=== PATIENT | male | born 1950 | race Caucasian/White ===

== ENCOUNTER 2019-07-08 12:51 | Inpatient (IN) | payer MEDICARE ==
[~2019-07-08] VITALS: Ht 172.7 cm; Wt 104.3 kg
[2019-07-08] MEDS ORDERED: TYLENOL325 M1 PO (14:39)
[2019-07-08] MEDS ORDERED: ALPRAZOLAM XR3 MG PO (14:43)
[2019-07-08] MEDS ORDERED: VITAMIN C500 M2 PO (14:45)
[2019-07-08] MEDS ORDERED: ASA81BEC PO (14:47)
[2019-07-08] MEDS ORDERED: LIPITOR40 MG PO (14:49)
[2019-07-08] MEDS ORDERED: THERA-D2000 UNIT PO (14:51)
[2019-07-08] MEDS ORDERED: LOMOTIL 2.5-0.01 TAB PO (14:54)
[2019-07-08] MEDS ORDERED: NEURONTIN100 MG PO (14:55)
[2019-07-08] MEDS ORDERED: GLUCOSAMINE &1 EAC1 PO (14:56)
[2019-07-08] MEDS ORDERED: NORCO 5-325 TA1 EAC1 PO (14:58)
[2019-07-08] MEDS ORDERED: MIDODRINE HCL 55 M1 PO (14:59)
[2019-07-08] MEDS ORDERED: MULTIPLE VITAM1 EAC2 PO (15:01)
[2019-07-08] MEDS ORDERED: NEPHRO-VITE TA0.8 MG PO (15:12)
[2019-07-08] MEDS ORDERED: OMEGA-3 FISH1200 MG PO (15:19)
[2019-07-08] MEDS ORDERED: ONDANSETRON ODT4 MG PO (15:21)
[2019-07-08] MEDS ORDERED: MIRAPEX0.5 MG PO (15:22)
[2019-07-08] MEDS ORDERED: PROBIOTIC1 EAC7 PO (15:23)
[2019-07-08] MEDS ORDERED: PROSOL2000 ML (15:29)
[2019-07-08] MEDS ORDERED: RENVELA0.8 GM PO (15:32)
[2019-07-08] MEDS ORDERED: VENLAFAXINE HC150 MG PO (15:34)
[2019-07-08 17:57] VITALS: BP 97/50
--- NOTE | 2019-07-08 19:51 | NUR ---
PATIENT ARRIVED TO UNIT VIA W/C VAN. ALERT AND ORIENTED X4. UP WITH STAND BY ASSIST, GAIT BELT AND WALKER. NO C/O PAIN. ASSESSMENT CHARTED. FISTULA DRESSING DRY AND INTACT OVER LEFT UPPER ARM. DIALYSIS NURSE TO BE OUT IN AM TO CHECK FISTULA SO PATIENT WILL BE ABLE TO GET DIAYSIS. HAS PULL UP ON AT THIS TIME. PATIENT STATES SELDOM HAS URINE OUTPUT. CALL LIGHT WITHIN REACH. CHAIR ALARM BEING USED.
[2019-07-08 20:34] VITALS: BP 106/49
[2019-07-09 03:35] LABS: HEMATOCRIT 27.7 % (42.0-52.0); HEMOGLOBIN 9.4 gm/dL (14.0-18.0); MCH 34.3 pg (26.0-34.0); MCHC 33.9 g/dL (28.0-37.0); MCV 101.1 fL (80.0-100.0); MPV 7.2 fl. (7.2-11.1); RBC 2.74 mil/uL (4.50-6.00); RDW-CV 16.1 % (10.5-14.5)
[2019-07-09 03:45] LABS: CREATININE 7.8 mg/dL (0.6-1.3); POTASSIUM 5.2 mmol/L (3.5-5.1)
--- NOTE | 2019-07-09 05:54 | NUR ---
ASSUMED PT CARE AT 1930. PT ALERT AND ORIENTED X4, POLITE AND COOPERATIVE WITH CARES. HX OF DEBILITY AND ESRD. ON SCHEDULED PAIN MEDICATION. PT TO HAVE DIALYSIS TODAY. FISTULA TO LEFT UPPER EXTREMITY WITH BRUIT AND THRILL, HOWEVER FISTULA IS ALLEGEDLY INFILTRATED, DIALYSIS NURSE TO ARRIVE AT 0700 TO TROUBLESHOOT. LARGE STOOL THIS SHIFT. UP TO BS WITH ASSIST OF TWO, GAIT BELT AND WALKER. PT TURNED Q2. PHOTOS TAKEN OF FOLLOWING, SCAB ON LEFT KNEE, PRESSURE SORE ON RIGHT BUTTOCK, SORE ON COCCYX, BLOOD BLISTER ON FOURTH FINGER OF LEFT HAND AND SORE ON SECOND TOE OF LEFT FOOT. BLE EDEMATOUS AND DISCOLORED. 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 USES CALL LIGHT APPROPRIATELY. CALL LIGHT AND FREQUENTLY USED ITEMS IN REACH. BED ALARM ON FOR SAFETY. HOURLY ROUNDING IN PROGRESS, WILL CONTINUE TO MONITOR.
[2019-07-09 08:26] VITALS: BP 102/53
--- NOTE | 2019-07-09 16:21 | NUR ---
ASSESSMENT COMPLETE. PT ALERT AND ORIENTED X4. PT HAD DIALYSIS THIS MORNING DUE TO MISSING FRIDAY. PT NORMAL DIALYSIS DAYS ARE , FRIDAY, FRIDAY. FISTULA IN LEFT ARM, LEFT LIMB ALERT IN PLACE. ACCU CHECK ACHS. PT TOLERATES MEALS. PAIN MEDICATION SCHEDULED FOR LEFT HIP/LEG PAIN. PT TAKES MEDICATIONS WITHOUT DIFFICULTY. PT IS UP WITH 2 ASSIST WITH WALKER AND GAIT BELT. PT IN CHAIR AFTER DIALYSIS MOST OF THE AFTERNOON. BED AND CHAIR ALARM IN PLACE. CALL LIGHT WITHIN REACH, WILL CONTINUE PLAN OF
--- NOTE | 2019-07-09 16:55 | NUR ---
Pt admitted to [facility] inpt rehab unit from [facility]. Pt lives at home with his . Pt has walker at home. SW to continue to follow to assist with safe dc planning.
[2019-07-09 20:30] VITALS: BP 100/50
--- NOTE | 2019-07-09 23:39 | NUR ---
ASSUMED CARE AT 1930. PATIENT RESTING IN BED. UP TO BSC FOR SMALL SOFT BM. SKIN CARE DONE, MOISTURE BARRIER APPLIED. UP WITH TWO FOR SAFETY, GAIT BELT, WALKER, CUEING. FISUTLA ON LT ARM POSITIVE FOR THRILL AND BRUIT. AREAS TO LT KNEE, LT TOE AND LT HAND DILIP AND C/D/I. HEELS ELEVATED ON TWO PILLOWS PER REQUEST. ON SCHEDULED PAIN MEDS. TURNED Q2H. HOURLY ROUNDS CONTINUE. BED ALARM ON. CALL LITE IN REACH.
[2019-07-10 06:08] LABS: % SATURATION 22 % (20-39); IRON 39 ug/dL (50-175)
--- NOTE | 2019-07-10 06:18 | NUR ---
SLEPT MOST OF THE NIGHT. CALLS OUT ASKING TO BE TURNED WHICH COINCIDED WITH Q2H TURNS. POSITIONED WITH PILLOWS. STAYED OFF HIS BACK ALL NIGHT. NO VOIDS THIS SHIFT. HAD ONE SMEAR OF SOFT BM EARLIER IN SHIFT PER BSC. SCHEDULED PAIN MEDS GIVEN, SEE OCT. HOURLY ROUNDS CONTINUE. BED ALARM ON. CALL LITE IN REACH.
[2019-07-10 08:07] VITALS: BP 87/48
--- NOTE | 2019-07-10 16:34 | NUR ---
ASSUMMED CARE OF PT AT 0730, PT ALERT AND ORIENTED, HAS GENERALIZED WEAKNESS, TRANSFERS WITH MOD/MAX ASSIST GB WALKER CUEING, PT HAS APRYL FISTULA, DIALYSIS THIS AFTERNOON, PT HAS NOT VOIDED THIS SHIFT, PT BUTTOCKS RED, REPOSTIONED EVERY 2 HOURS, PT HAD LUNCH IN DININGROOM, TAKING FOOD AND FLUIDS WELL, PARTICIPATED IN ALL THERAPIES, HOURLY ROUNDING COMPLETED, ASSESSMENT COMPLETED, WILL CONTINUE TO MONITOR.
[2019-07-10 19:55] VITALS: BP 74/37
--- NOTE | 2019-07-11 05:45 | NUR ---
PT ALERT AND ORIENTED. BP WAS 74/37 BEGINNING OF SHIFT. PT ON 1000CC FLUID RESTRICTION. HAD DIALYSIS YESTERDAY. DR SO NOTIFIED OF BP. NO NEW ORDERS GIVEN. PT SLEPT LITTLE THIS SHIFT. HAD LITTLE BM. Q2 TURN. BARRIER CREAM TO BOTTOM. FALL PRECAUTION IN PLACE. 2 PERSONS'S ASSIST. CALL LIGHT WITHIN REACH. HOURLY ROUNDINGS MADE. WILL CONTINUE TO MONITOR.
[2019-07-11 08:29] VITALS: BP 113/62
--- NOTE | 2019-07-11 16:58 | NUR ---
ASSUMMED CARE OF PT AT 0730, PT ALERT AND ORIENTED, PT TRANSFERS WITH ASSIST OF 1-2, NEEDS LIFTING ASSIST TO GO FROM SIT TO STAND, THEN ABLE TO TAKE STEPS SLOWLY, NO VOID THIS SHIFT, DID HAVE LARGE BM X 1 ON TOILET, BUTTOCKS REDDENED AND SLOUGHING OF SKIN, CONSULT PLACED TO WD NURSE, BARRIER OINTMENT APPLIED, REPOSTIONED EVERY 2 HOURS, SCABBED AREAS HEALING, LEFT OPEN TO AIR, SHUNT IN LUE GD BRUIT AND THRILL, TAKING FOOD AND FLUIDS WELL, HOURLY ROUNDING COMPLETED, ASSESSMENT COMPLETE, WILL CONTINUE TO MONITOR.
[2019-07-11 19:45] VITALS: BP 105/58
--- NOTE | 2019-07-11 22:34 | NUR ---
ASSUMED CARE AT 1930. PATIENT RESTING IN CHAIR UNTIL HS. UP WITH STAND PIVOT, MOD ASSIST, GAIT BELT, WALKER. BRIEF REMOVED AT HS, MOISTURE BARRIER APPLIED. NEEDS HELP WITH TURNS. POSITIONED WITH PILLOWS. RARELY VOIDS. LUE DIALYSIS FISTULA POSITIVE FOR BRUIT AND THRILL. MEDICATED FOR PAIN AT HS. APPEARS SLEEPING. HOURLY ROUNDS CONTINUE. BED ALARM ON. CALL LITE IN REACH.
--- NOTE | 2019-07-12 06:05 | NUR ---
APPEARED TO BE SLEEPING MOST OF THE NIGHT. TURNED Q2H. WANTED TO GET UP AT 0300 AND GET DRESSED, REHAB ROUTINE REVIEWED WITH PATIENT. UP TO BSC AROUND 0530, HAD SMEAR OF BM PER BSC. PERICARE DONE, MOISTURE BARRIER APPLIED. UP TO RECLINER WITH LEGS ELEVATED AFTER THAT. WEARING BRIEF AT THIS TIME, BUT HAD THEM OFF THROUGH THE NIGHT. HAS OWN PULLUPS FROM HOME. HOURLY ROUNDS CONTINUE. BED ALARM ON. CALL LITE IN REACH.
[2019-07-12 08:23] VITALS: BP 130/65
[2019-07-12 09:15] VITALS: BP 130/65
--- NOTE | 2019-07-12 15:39 | NUR ---
WOUND NURSE: PATIENT SEEN TO ADDRESS SKIN LESIONS ON BUTTOCKS, LEFT HAND, LEFT FOOT, 2ND TOE, LEFT KNEE. RIGHT BUTTOCK WITH 0.5 X 0.5 X 0.1 CM; PARTIAL THICKNESS TISSUE LOSS, SCANT SEROUSANGUINOUS DRAINAGE, CLEANSED WITH SOAP AND WATER, RINSED WTIH WATER, THEN PATTED DRY. APPLIIED MARATHON SKIN PROTECTANT TO AFFECTED AREA. THIS WAS TOLERATED WELL BY THE PATIENT. LEFT HAND WOUND AND LEFT FOOT 2ND TOE WOUND CLOSED. LEFT KNEE LESION WITH INTACT SCAB MEASURING 0.3 X 0.3 CM AND NO INTERVENTION NEEDED.
--- NOTE | 2019-07-12 18:32 | NUR ---
ALERT AND ORIENTED X4. UP WITH 1 ASSIST, GAIT BELT AND WALKER. DENIED NEED FOR PAIN MEDICATION TODAY. WOUND NURSE HERE TODAY AND NEED TREATMENT APPLIED TO BUTTOCK. ON DIALYSIS, NO URINE PRODUCED TODAY. DIALYSIS FISTULA HAS POSITIVE BRUIT AND THRILL. CALL LIGHT WITHIN REACH. FALL PRECAUTIONS IN PLACE. BED ALARM AND CHAIR ALARM BEING USED.
--- NOTE | 2019-07-12 19:45 | NUR ---
SITTING UP IN RECLINER. DENIES NEED FOR PAIN MEDICATION. CALL LIGHT WITHIN REACH. TOOK MEDICATIONS WHOLE ALL AT ONCE WITH WATER.
[2019-07-12 20:00] VITALS: BP 127/65
--- NOTE | 2019-07-13 05:13 | NUR ---
RESTED QUIETLY. UP AT ABOUT 0430 TO THE COMMODE TO TRY TO HAVE A BM BUT DIDN'T. THEN WENT TO THE RECLINER. HOURLY ROUNDING IN PROGRESS.
[2019-07-13 09:00] VITALS: BP 101/70
--- NOTE | 2019-07-13 16:30 | NUR ---
ALERT AND ORIENTED X4. UP WITH 1 ASSIST, GAIT BELT AND WALKER. GETTING DIALYSIS AT THIS TIME. FISTULA PATENT LEFT UPPER ARM. HAS NOT VOIDED THIS SHIFT. NO C/O PAIN. REMAINS ON 1000ML FLUID RESTRICTION. CALL LIGHT WITHIN REACH. FALL PRECAUTIONS IN PLACE. BED ALARM AND CHAIR ALARM BEING USED.
[2019-07-13 20:28] VITALS: BP 114/47
--- NOTE | 2019-07-13 20:50 | NUR ---
SITTING UP IN CHAIR DOING PAPERWORK AND WATCHING SARITHA PARTON ON TV. DENIES DISCOMFORT. CALL LIGHT WITHIN REACH. SNACK PROVIDED.
[2019-07-14 02:06] LABS: GLYCOHEMOGLOBIN (HGB A1C) 6.8 % (4.8-5.6)
--- NOTE | 2019-07-14 06:09 | NUR ---
RESTED ON/OFF. INFORMED PATIENT OF PRN MELATONIN ORDER. PATIENT STATES HE HAS BEEN A POOR SLEEPER ALL OF HIS LIFE. JUST GAVE HYDROCODONE FOR COMPLAINT IN KNEES RATED "8". GOT UP AT 0135 TO THE BEDSIDE COMMODE AND HAD A MODERATE BM THEN SAT UP IN RECLINER FOR ABOUT 2 HOURS BEFORE RETURNING TO BED. HOURLY ROUNDING IN PROGRESS.
[2019-07-14 08:37] VITALS: BP 119/48
--- NOTE | 2019-07-14 15:33 | NUR ---
ROSMERY and Dr Wallis met with pt to review team conference summary and plan for pt to remain on inpt rehab unit to continue therapies at least another week with possible dc next Monday 07/23. Team discussed pt wondering about shot in his hip that was scheduled for 07/21. Dr Wallis suggesting pt would be able to receive shot at the pain clinic and will follow up. SW to continue to follow to assist with safe dc planning.
--- NOTE | 2019-07-14 18:07 | NUR ---
PATIENT IN DIALYSIS TOLERATING WELL. UP FOR MEALS DENIES PAIN. SPOKE WITH DR DE LA ROSA AT DR WALL REQUEST STATED SAW NO NEED TO START ANTICOAGULENT SINCE PATIENT WAS UP WITH THERAPIES.
[2019-07-14 19:30] VITALS: BP 103/51
--- NOTE | 2019-07-15 05:33 | NUR ---
ASSUMED PT CARE AT 1930. PT ALERT AND ORIENTED X4, POLITE AND COOPERATIVE WITH CARES. PT HAD HEMODIALYSIS ON FRIDAY AND FRIDAY SO NONE TODAY. PT UP TO BEDSIDE COMMODE WITH GAITBELT, WALKER AND MODERATE ASSIST. STOOL X1. WOUNDS TO BUTTOCKS OPEN TO AIR. PT TAKES PILLS WHOLE WITH WATER WITHOUT DIFFICULTY. DENIES PAIN. FLUID RESTRICTION OBSERVED. USES CALL LIGHT APPROPRIATELY. CALL LIGHT AND FREQUENTLY USED ITEMS IN REACH. HOURLY ROUNDING IN PROGRESS, WILL CONTINUE TO MONITOR.
[2019-07-15 07:57] VITALS: BP 92/57
[2019-07-15 09:15] VITALS: BP 92/57
--- NOTE | 2019-07-15 16:46 | NUR ---
ALERT AND ORIENTED X4. UP WITH 1 ASSIST, GAIT BELT AND WALKER. NO C/O PAIN. WOUND AREAS ON BUTTOCKS COVERED WITH MARATHON GLUE. FISTULA FOR DIALYSIS LEFT UPPER ARM HAS BRUIT AND THRILL. ON 1000ML FLUID RESTRICTION. ON FALL PRECAUTIONS. BED ALARM AND CHAIR ALARM USED. CALL LIGHT WITHIN REACH.
[2019-07-15 16:55] VITALS: BP 115/80
[2019-07-15 19:41] VITALS: BP 135/69
--- NOTE | 2019-07-16 05:31 | NUR ---
ASSUMED PT CARE AT 1930. PT ALERT AND ORIENTED X4, POLITE AND COOPERATIVE WITH CARES. PT DENIES PAIN. PT TRANSFERS WITH GAIT BELT, WALKER AND MODERATE ASSIST. STOOL X1 THIS SHIFT. PT PLEASED WITH HIS PROGRESS. WOUND AREAS ON BUTTOCKS COVERED WITH MARATHON GLUE. FISTULA FOR DIALYSIS IN LEFT UPPER ARM HAS BRUIT AND THRILL. 1000ML RESTRICTION OBSERVED. CALL LIGHT AND FREQUENTLY USED ITEMS IN REACH. BED ALARM ON FOR SAFETY. HOURLY ROUNDING IN PROGRESS, WILL CONTINUE TO MONITOR.
[2019-07-16 08:28] VITALS: BP 91/49
[2019-07-16 20:25] VITALS: BP 140/67
--- NOTE | 2019-07-16 22:57 | NUR ---
ASSUMED CARE AT 1930. IN W/C UNTIL HS. UP TO BSC TO HAVE BM AND VOIDED. PERICARE DONE, MOISTURE BARRIER APPLIED. UP WITH ONE, GAIT BELT, WALKER. TAKES PILLS WHOLE 3-4 AT A TIME. ASSISTED WITH TURNS. FLUID RESTRICTION OBSERVED. AV FISTULA TO LUE HAS POSITIVE BRUIT AND THRILL. HOURLY ROUNDS CONTINUE. BED ALARM ON. CALL LITE IN REACH.
--- NOTE | 2019-07-17 06:26 | NUR ---
SLEPT MUCH OF NIGHT. ASSISTED WITH TURNS. UP TO W/C AROUND 0500 PER REQUEST. HAD BM AT HS PER BSC. NO C/O PAIN. HOURLY ROUNDS CONTINUE. BED ALARM ON. CALL LITE IN REACH.
[2019-07-17 07:47] VITALS: BP 89/45
--- NOTE | 2019-07-17 18:22 | NUR ---
AM ASSESSMENT AND VITAL SIGNS COMPLETED DOCUMENTED. PT COMPLETED HIS THERAPY SESSIONS AND HAD DIALYSIS IN THE AFTERNOON. REPORT FROM THE DIALYSIS NURSE WAS THAT HE HAD REMOVED 2 LITERS AND PT TOLERATED IT WELL. FALL PRECAUTIONS AND HOURLY ROUNDING CONTINUE.
[2019-07-17 20:30] VITALS: BP 128/55
--- NOTE | 2019-07-18 05:30 | NUR ---
PT ALERT AND ORIENTED. VSS ON RA. PT SLEPT LITTLE THIS SHIFT. AGREES THAT IT IS HIS ROUTINE AT HOME. MEDS GIVEN PER EMAR. NO BM THIS SHIFT. PAIN MED GIVEN X1 THIS SHIFT. FALL PRECAUTION IN PLACE. Q2 TURN. HOURLY ROUNDINGS DONE. WILL CONTINUE PLAN OF CARE.
--- NOTE | 2019-07-18 06:40 | NUR ---
PT ALERT AND ORIENTED. VSS ON RA. ASSESSMENT DOCUMENTED. PT SLEPT OFF AND ON THIS SHIFT. SAYS ITS SAME ROUTINE AT HOME. BM NOTED THIS SHIFT. PT TO WHEELCHAIR AND RECLINER THIS SHIFT. Q2 TURN. FLUID RESTRICTION. STARTED PT WITH 400ML WATER. FALL PRECAUTION IN PLACE. CALL LIGHT WITHIN REACH. HOURLY ROUNDINGS MADE. WILL CONTINUE TO MONITOR.
[2019-07-18 07:46] VITALS: BP 101/57
[2019-07-18 19:30] VITALS: BP 117/72
--- NOTE | 2019-07-19 05:29 | NUR ---
ASSUMED PT CARE AT 1930. PT ALERT AND ORIENTED X4, POLITE AND COOPERATIVE WITH CARES. PT ALREADY IN BED AT SHIFT CHANGE. DENIES PAIN. UP WITH ONE, GAIT BELT AND WALKER. TAKES PILLS WHOLE A FEW AT A TIME. ASSISTED WITH TURNS. AV FISTULA TO LUE HAS POSITIVE BRUIT AND THRILL. 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 CALL LIGHT IN REACH. HOURLY ROUNDING IN PROGRESS, WILL CONTINUE TO MONITOR.
[2019-07-19 08:23] VITALS: BP 144/60
--- NOTE | 2019-07-19 13:18 | NUR ---
WOUND CARE NOTE: ATTEMPTED TO SEE PATIENT, BUT OUT OF ROOM AT THIS TIME. WILL ATTEMPT TO REASSESS AT A LATER TIME.
--- NOTE | 2019-07-19 16:51 | NUR ---
ASSUMED CARE AT 0730. ALERT ORIENTED PLEASANT COOPERATIVE. HX OF WEAKNESS CVA. TRANSFERS WITH SBA G BELT WALKER PROPELLS SELF IN W/C IN ROOM AND WITH THERAPIES. HAS PARTICIPATED IN THERAPIES. USES CALL LIGHT APPROPRIATELY FOR ASSISTANCE. DENIES PAIN OR CONCERNS. TAKES MEDS WITH WATER WITHOUT DIFFICULTY. FEEDS SELF APPETITE GOOD. L ARM SHUNT FOR DIALYSIS Saturdays.
[2019-07-19 19:30] VITALS: BP 103/43
--- NOTE | 2019-07-20 06:33 | NUR ---
ASSUMED PT CARE AT 1930. PT ALERT AND ORIENTED X4, POLITE AND COOPERATIVE WITH CARES. PT SITTING UP IN WHEELCHAIR AT SHIFT CHANGE. TRANSFERS WITH ASSIST OF ONE, GAIT BELT AND STAND/PIVOT. DENIES PAIN. TAKES PILLS WHOLE A FEW AT A TIME WITH WATER WITHOUT DIFFICULTY. AV FISTULA TO LUE HAS POSITIVE BRUIT AND THRILL. PT TO HAVE DIALYSIS TODAY. PT UP TO CHAIR AND BACK TO BED SEVERAL TIMES OVERNIGHT. USES CALL LIGHT APPROPRIATELY. HOURLY ROUNDING IN PROGRESS, WILL CONTINUE TO MONITOR.
[2019-07-20 08:00] VITALS: BP 87/41
[2019-07-20 09:30] VITALS: BP 87/41
--- NOTE | 2019-07-20 14:45 | NUR ---
SW called pt in preparation for team conference tomorrow and to follow up about particulars of pt hip pain specifically that pt is not able to go to OP appt for injection while on inpt rehab unit. Pt did not answer so SW left a detailed message for pt about above info and requested call back with any questions or concerns. SW to continue to follow to assist with safe dc planning.
--- NOTE | 2019-07-20 17:38 | NUR ---
ALERT AND ORIENTED X4. UP WTIH STAND BY ASSIST, GAIT BELT AND WALKER WITH TRANSFERS AND AMBULATING. 1 ASSIST NEED WITH TOILETING DUE TO DIARRHEA TODAY. DENIES NEED FOR PAIN MEDICATION WHEN OFFERED. HAS BRUIT AND THRILL WITH DIALYSIS FISTULA. CURRENTLY RECEIVING DIALYSIS. CALL LIGHT WITHIN REACH. BED ALARM AND CHAIR ALARM USED.
[2019-07-20 20:15] VITALS: BP 116/45
--- NOTE | 2019-07-20 20:15 | NUR ---
SITTING UP IN WHEELCHAIR DOING PAPERWORK. SNACK PROVIDED. TOOK MEDICATIONS WHOLE WITH WATER. CALL LIGHT WITHIN REACH.
[2019-07-21 05:11] LABS: ABSOLUTE BASOPHILS 0.1 thou/uL (0.0-0.2); ABSOLUTE EOSINOPHILS 0.2 thou/uL (0.0-0.7); ABSOLUTE LYMPHOCYTES 1.2 thou/uL (0.8-5.3); ABSOLUTE MONOCYTES 0.5 thou/uL (0.0-1.2); ABSOLUTE NEUTROPHILS 3.8 thou/uL (1.6-8.1); BASOPHILS 1.3 %; EOSINOPHILS 2.9 %; HEMATOCRIT 28.5 % (42.0-52.0); HEMOGLOBIN 9.7 gm/dL (14.0-18.0); LYMPHOCYTES 20.4 %; MCH 33.9 pg (26.0-34.0); MCHC 34.1 g/dL (28.0-37.0); MCV 99.5 fL (80.0-100.0); MONOCYTES 9.3 %; MPV 6.6 fl. (7.2-11.1); NUCLEATED RBCS 0 /100WBC; PLATELET COUNT* 226 thou/uL (150-400); POLYS 66.1 %; RBC 2.87 mil/uL (4.50-6.00); RDW-CV 15.2 % (10.5-14.5); WBC 5.8 thou/uL (4.0-11.0)
[2019-07-21 05:30] LABS: CALCIUM 8.8 mg/dL (8.5-10.1); CREATININE 5.8 mg/dL (0.6-1.3); PHOSPHORUS* 4.8 mg/dL (2.5-4.9)
--- NOTE | 2019-07-21 06:11 | NUR ---
RESTED ON/OFF. GOT UP TO THE BEDSIDE COMMODE AT ABOUT 2335 AND HAD A LARGE BM. THEN SAT UP IN THE WHEELCHAIR PER REQUEST UNTIL 0240. HAS BEEN IN BED SINCE THEN. HOURLY ROUNDING IN PROGRESS.
[2019-07-21 08:00] VITALS: BP 90/42
--- NOTE | 2019-07-21 17:13 | NUR ---
ROSMERY and Dr Wallis met with pt to review team conference summary and plan for pt to dc home with on Friday. Team recommending mod I trial tomorrow and PT OT ST to follow at dc. Pt in agreement with plan. SW to continue to follow to assist with safe dc planning. Pt aware to reschedule his injection to his hip either same location or with pain clinic at [facility] as another option.
--- NOTE | 2019-07-21 17:15 | NUR ---
ALERT AND ORIENTED X4. DENIED NEED FOR PAIN MEDICATION. CONTINENT OF BOWEL MOVEMENT. NO URINE OUTPUT THIS SHIFT. HAD HEMODIALYSIS YESTERDAY. UP WITH 1 ASSIST, GAIT BELT AND WALKER. WOUND ON BUTTOCK HEALING WITH ONLY HAS 1 SMALL SCAB STILL INTACT. REMAINS ON 1000ML FLUID RESTRICTION. PARTICIPATES IN THERAPIES. CALL LIGHT WITHIN REACH. BED ALARM AND CHAIR ALARM USED.
[2019-07-21 19:45] VITALS: BP 126/57
--- NOTE | 2019-07-21 23:38 | NUR ---
ASSUMED CARE AT 1930. PATIENT UP IN W/C UNTIL HS AROUND 2030. TO TOILET FOR BM, PER W/C TO DOOR AND WALKED TO TOILET. NEEDS HELP WITH POSTERIOR CLEANING AFTER BM. TAKES PILLS WHOLE WITH WATER. NO C/O PAIN. NO COLACE TONOC BECAUSE OF SOFT STOOL THIS SHIFT. WAS IN BED UNTIL AROUND 0 THEN UP TO HIS W/C AND IS WORKING ON CHECKS. INSTRUCTED IN FLUID RESTRICTIONS. ALSO REFUSED HS SNACK DESPITE NEEDING SLIDING SCALE FOR BLOOD SUGAR OF 183. HAS "COKE" FROM [employer] IN ROOM AND ALSO [employer] MINTS. ALERT AND ORIENTED OF THIS WRITING. NO C/O PAIN. HOURLY ROUNDS CONTINUE. BED AND CHAIR ALARMS IN USE.
--- NOTE | 2019-07-22 05:39 | NUR ---
SLEPT OFF AND ON THROUGH NIGHT. WAS UP FOR A WHILE, WENT TO BED AND LATER WANTED TO GET UP. ENCOURAGED TO GET MORE SLEEP HE HAS THERAPY THIS AM. 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 STATES HIS WILL BE HERE LATER TODAY TO SOFTWARE DEVELOPMENT COORDINATOR CHECKS. 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 HOURLY ROUNDS CONTINUE. BED ALARM ON. CALL LITE IN REACH.
[2019-07-22 08:05] VITALS: BP 89/48
--- NOTE | 2019-07-22 12:49 | CON ---
[address] [address] CONSULTATION Name: JAROCHO CALZADA Room: [address] IN M.R.#: [id number] Admission: 07/08/19 Attend Phys: Bradford Wallis MD Discharge: Date of : 48 Report #: [id number] THIS REPORT FOR: //name// CC: Scout Wallis DATE OF SERVICE: 07/09/2019 NEPHROLOGY CONSULTATION CONSULTING PHYSICIAN: Dr. Wallis. REASON FOR NEPHROLOGY CONSULTATION: End-stage renal disease for maintenance hemodialysis needs. REASON FOR ADMISSION: For further rehab. HISTORY OF PRESENT ILLNESS: This is a very pleasant 69-year-old male who is on hemodialysis, ESRD every Friday, and Friday at [facility] and diabetes type 2, hypertension, coronary artery disease, chronic diastolic congestive heart failure, atrial fibrillation, was transferred from [facility] yesterday for further rehab. He was admitted to [facility] on 07/04/2019 because of left hip pain and fatigue. He had an EMG done a few weeks before that and developed left hip pain after that and the pain was not going away and he came to the hospital, wherein imaging was checked and acute fracture was ruled out. He was transferred for further rehab here to [facility] facility. He apparently also developed myoclonic jerks because of tramadol, which resolved after stopping tramadol. He is eating his breakfast. He has no acute complaints. He was started on dialysis in 2017. Does not make much urine. He has a left arm AV graft, which apparently did infiltrate yesterday, so he could not get his dialysis yesterday. It seems to have a good bruit and he is going to be dialyzed today. As mentioned above, he is normally on a TTS schedule and we will keep him on a TTS schedule here as well. REVIEW OF SYSTEMS: As mentioned in history of present illness, his left hip pain is better, but is still there. Otherwise, 10-point review of systems are negative. No shortness of breath. ALLERGIES: SULFA, SPIRONOLACTONE AND CIPROFLOXACIN. FAMILY HISTORY: No history of kidney disease in the family. MEDICATIONS ON ADMISSION: Include midodrine 5 mg t.i.d. because he has orthostatic hypotension as needed, atorvastatin, omega 3 fish oil supplement, aspirin 325 mg a day, hydrocodone and acetaminophen, acetaminophen as needed, [place] [address] CONSULTATION Name: CALZADAJAROCHO Tae Room: [address]#: [id number] Admission: 07/08/19 Attend Phys: Bradford Wallis MD Discharge: Date of : 48 Report #: [id number] gabapentin, venlafaxine, alprazolam, pramipexole, sevelamer 800 mg t.i.d. with meals, Lomotil as needed, Benadryl, amino acid?, Zofran as needed, probiotic, folic acid, vitamin B complex, ascorbic acid, cholecalciferol, multivitamins, glucosamine and chondroitin capsule reported t.i.d. PAST MEDICAL HISTORY: Includes end-stage renal disease, on hemodialysis since 2017. He does have diabetes and hypertension, but he said that he was started on dialysis after he had his CABG and developed acute kidney injury after that, atrial fibrillation, anemia of chronic kidney disease, chronic diastolic congestive heart failure, history of stroke, coronary artery disease, CABG in 2017, diabetes type 2 as mentioned above and orthostatic hypotension and uses midodrine as needed. PAST SURGICAL HISTORY: He has a history of AV access on the right arm, which failed. He has a left arm AV graft and he has a history of CABG. PHYSICAL EXAMINATION: VITAL SIGNS: Blood pressure is 102/53, respiratory rate is 16, pulse is 82, temperature is 36.3 and pulse ox not reported, but he is on room air. GENERAL: He is awake, alert, oriented x 3, eating his breakfast. HEAD AND EYES: Atraumatic, normocephalic. EARS, NOSE, AND THROAT: Mucous membranes are moist. NECK: No JVD. CHEST: Bilaterally clear to auscultation posteriorly. No crackles or wheezing. CARDIOVASCULAR: S1, S2 normal. No murmurs. ABDOMEN: Soft, nondistended, nontender, obese, otherwise bowel sounds are present. EXTREMITIES: Dialysis access, left arm AV graft with good bruit. LOWER EXTREMITIES: There is no edema. NEUROLOGICAL FUNCTION: Gross neurological function is intact. PSYCHIATRIC: Mood and affect seem to be normal. LABORATORY DATA: His hemoglobin today 9.4, WBC is 5.0, platelet count is 176. Sodium is 135, potassium is 5.2, chloride is 95, BUN 69. Other labs were reviewed. IMAGING: There is no imaging to be reviewed. ASSESSMENT: 1. End-stage renal disease, on hemodialysis, normally at [facility] at Friday, , Friday schedule. 2. Anemia of chronic kidney disease. 3. Secondary hyperparathyroidism of renal origin. 4. Hypertension. Blood pressure is controlled. 5. Diabetes type 2, we will defer to primary team for management of that. 6. Left hip pain. No evidence of fracture when imaging was done at [facility] [address] [place] [address] CONSULTATION Name: ZHENGJAROCHO Tae Room: [address] IN M.R.#: [id number] Admission: 07/08/19 Attend Phys: Bradford Wallis MD Discharge: Date of : 48 Report #: [id number] facility and he is here for rehabilitation. We will defer to rehab team for management of that. 7. History of orthostatic hypotension, gets midodrine as needed. PLAN: 1. He has not had dialysis since Friday, so we will be dialyzing him today. His graft seems to have good flow. 2. He should be on a renal diet. I have put him on 1 liter a day of fluid restriction. 3. We will give him erythropoietin to fight with his anemia_. 4. Continue his binders. We will check his phosphorus levels. Thank you for this consultation. Dialysis today and then again tomorrow to keep him on a TTS schedule from then on. Thank you for this consultation. We will continue to follow along with you for dialysis needs. Discussed with the patient and dialysis nurse. <ELECTRONICALLY SIGNED> By: Rachel Dunbar MD 07/22/19 1249 [id number] Dubnar MD /nt
--- NOTE | 2019-07-22 15:49 | NUR ---
WOUND CARE NOTE: REASSESSMENT PARTIAL THICKNESS LESION TO BUTTOCKS IS HEALING, SCABBED OVER WITH NEW EPITHELIUM TO VANESSA-SCAB. APPLIED LOTION OVER AREA. SCAB TO LEFT FINGER IS STABLE, APPEARS TO BE HEALING. PATIENT ADMITS THAT IT WAS A BLISTER THAT HE HAD POPPED. BLISTER NOTED TO RIGHT HAND, INTACT, SEROSANGUINEOUS FILLED. SCAB TO KNEE IS STABLE, HEALING. WILL SIGN OFF AT THIS TIME, EDUCATED PATIENT TO TAKE WAFFLE CUSHION HOME WITH HIM WHEN HE LEAVES. COMMUNICATED UNDERSTANDING. EDUCATED PATIENT NOT TO POP THE BLISTER TO HIS RIGHT HAND, AND NOTIFY HIS PHYSICIAN IF IT STARTED GETTING HOT OR MORE PAINFUL. COMMUNICATED UNDERSTANDING.
--- NOTE | 2019-07-22 16:22 | NUR ---
pt has participated with therapies and is now in dialysis. pt ambulates with walker and min assist of 1. pt mod i in room.pt remains alert and orientated.
[2019-07-22 20:05] VITALS: BP 102/54
--- NOTE | 2019-07-23 06:10 | NUR ---
Pt reports he is very satisfied with care he has received at this hospital. States he is looking forward to being discharged home later today. Pain pill given for c/o back pain this morning; reports complete relief from back pain upon reassessment. VSS. Pt states he slept "a little" overnight. Pt up in wheelchair since approx 0500. Pt pleasant and cooperative. Had soft BM last pm. Will continue to monitor.
[2019-07-23 07:37] VITALS: BP 126/71
[2019-07-23 10:32] VITALS: BP 126/71
[2019-07-23 12:47] VITALS: BP 126/71
--- NOTE | 2019-07-23 12:56 | NUR ---
Pt to dc home today with and HH services to follow. SW spoke with pt about HH agency options and pt chose [facility]; SW faxed referral and dc orders/med list to [facility]. [facility] in expecting/accepting pt back tomorrow to resume chair time there. Pt to provide pt ride home. No other dc needs expressed.
== END 2019-07-23 14:30 | disposition home health service (06) | DRG 947 ==
LOC: M.REH 12:51
PROVIDERS: Family Medicine; Internal Medicine; ADMIT Physical Medicine & Rehabilitation
PROC: 5A1D70Z Performance of Urinary Filtration, Intermittent, Less than 6 Hours Per Day (ICD-10-PCS; principal; 2019-07-09)
PROC: 5A1D70Z Performance of Urinary Filtration, Intermittent, Less than 6 Hours Per Day (ICD-10-PCS; 2019-07-12)
PROC: 5A1D70Z Performance of Urinary Filtration, Intermittent, Less than 6 Hours Per Day (ICD-10-PCS; 2019-07-13)
PROC: 5A1D70Z Performance of Urinary Filtration, Intermittent, Less than 6 Hours Per Day (ICD-10-PCS; 2019-07-20)
DX: R53.81 Other malaise (principal); N18.6 End stage renal disease; I13.2 Hypertensive heart and chronic kidney disease with heart failure and with stage 5 chronic kidney disease, or end stage renal disease; I50.32 Chronic diastolic (congestive) heart failure; N25.81 Secondary hyperparathyroidism of renal origin; G25.3 Myoclonus; I48.0 Paroxysmal atrial fibrillation; G89.29 Other chronic pain; I25.10 Atherosclerotic heart disease of native coronary artery without angina pectoris; D63.1 Anemia in chronic kidney disease; E11.22 Type 2 diabetes mellitus with diabetic chronic kidney disease; E11.40 Type 2 diabetes mellitus with diabetic neuropathy, unspecified; M32.9 Systemic lupus erythematosus, unspecified; I95.1 Orthostatic hypotension; E11.65 Type 2 diabetes mellitus with hyperglycemia; M16.12 Unilateral primary osteoarthritis, left hip; T40.4X5A Adverse effect of other synthetic narcotics, initial encounter; Z95.1 Presence of aortocoronary bypass graft; Z99.2 Dependence on renal dialysis; Y92.89 Other specified places as the place of occurrence of the external cause; Z88.2 Allergy status to sulfonamides; Z88.1 Allergy status to other antibiotic agents; Z88.8 Allergy status to other drugs, medicaments and biological substances; Z79.899 Other long term (current) drug therapy; Z79.82 Long term (current) use of aspirin; Z86.73 Personal history of transient ischemic attack (TIA), and cerebral infarction without residual deficits

== ENCOUNTER 2020-05-25 07:00 | Inpatient (IN) | payer MEDICARE ==
[~2020-05-25] VITALS: Ht 172.7 cm; Wt 119.3 kg
--- NOTE | ~2020-05-25 | CON ---
[address] [address] CONSULTATION Name: JAROCHO CALZADA Tae Room: [address] IN M.R.#: [id number] Admission: 05/25/20 Attend Phys: Elen Avila MD Discharge: Date of : 48 Report #: [id number] THIS REPORT FOR: //name// cc: Scout Arcos MD, Michael S. MD ~ THIS REPORT FOR: //name// CC: Elen Arcos DATE OF SERVICE: 05/25/2020 HISTORY OF PRESENT ILLNESS: This is a 70-year-old male patient who was evaluated by me this evening for weakness in the arms and legs. The patient himself provided history. I called the double spindle shaper operator who saw this patient and discussed the patient with him. This patient had a thrombectomy done to declog his graft as I understand. He is a dialysis patient. He said after that he has weakness in the legs as well as the arm. Procedure was done yesterday. It has not changed. He has not become better and he has not become any worse. He was using a walker even before this procedure, but now he is unable to bear weight in the legs. He can still move them. He does not produce any urine, but does not look like he has any incontinence of the bowel according to him. The best I understand, TPA was not used, but we do not have the official record. His double spindle shaper operator is going to get those records as I understand. REVIEW OF SYSTEMS: A 14-point review of system is pretty extensive in this patient. It looks like if the patient has an end-stage renal disease. He says he was a diabetic at one time, but presently he is not a diabetic. His blood pressure fluctuates and he is on midodrine. He has pretty significant numbness in the legs, but that is present even before this happened and is longstanding. One of the record indicates that this patient has a history of atrial fibrillation. He did have some jerking movement of the extremities, but that is not his present problems. He says he does have a pacemaker. He does not know if the pacemaker is compatible with MRI or not. From the record, I cannot tell for sure. At any records, which he says that he has a pacemaker, but he is confident he has one. I need to talk to Cardiology about that. PAST MEDICAL HISTORY: Positive for end-stage renal disease, looks like neuropathy, walking difficulty in the baseline, now has weakness in upper and lower extremities. FAMILY HISTORY: Unremarkable. PHYSICAL EXAMINATION: Indicate he is alert. He is responsive. He can follow simple commands. His speech and concentration looks okay. Cranial nerve examination; visual field is difficult to tell, but [place] [address] CONSULTATION Name: ZHENGJAROCHO Tae Room: [address] IN [facility].#: [id number] Admission: 05/25/20 Attend Phys: Elen Avila MD Discharge: Date of : 48 Report #: [id number] palsy. He is weak in the upper and lower extremities. He can move them and move them against gravity to some extent, but is pretty profoundly weak. He takes a long time to do the position sense and does not do all of his right. He says both his touch and pinprick is diminished in the lower extremities. I could not elicit the reflexes and plantar is mute. There is no cerebellar sign. IMPRESSION: We were trying to get the information from . [place] which just came when I was dictating and it does look like he has a pacemaker. We still cannot tell if it is compatible with MRI or not. I talked to multiple people including his nurse dileep. I think the possibility of cord infarct need to be considered in this patient. That will cause weakness with partial sparing of the position sense, which he appeared to be having in spite of his neuropathy. If he does have atrial fibrillation, then the question of anticoagulation need to be addressed and need to be addressed by Cardiology. Spinal cord infarcts are difficult to prove. This is because they require diffusion weighted spine images. Most of the hospital do not do it on a routine basis. The patient has not changed much and he is not on anticoagulation, so cervical spine hematoma or any other pathology is less likely, but is not excluded. I discussed all his options with him. The plan is to get more information from his freelance writer urgently. I have already talked to an MRI. If the pacemaker is compatible with MRI, the best will be to proceed with MRI of the brain and C-spine and what it shows and decide about further management. This should do the diffusion weighted images, although they are difficult to do in spine as it has a lot of artifact. If not, then we need to evaluate his spine. I talked to the nurses and said I asked him to call. In case, he deteriorates then he can do a myelogram, but he is more inclined to get an MRI and hopefully his pacemaker will be compatible with MRI. More than 50 minutes of time was spent taking care of this patient today and majority of that time was spent counseling and coordinating. Dr. Gutierrez will follow up this patient with you from tomorrow. By: 50 [id number] Mark MD /guanaco
[~2020-05-25 07:00] MED LIST: ALPRAZOLAM XR3 MG PO; ASA81BEC PO; GLUCOSAMINE &1 EAC1 PO; LIPITOR40 MG PO; LOMOTIL 2.5-0.01 TAB PO; MIDODRINE HCL 55 M1 PO; MIRAPEX0.5 MG PO; MULTIPLE VITAM1 EAC2 PO; NEPHRO-VITE TA0.8 MG PO; NEURONTIN100 MG PO; NORCO 5-325 TA1 EAC1 PO; OMEGA-3 FISH1200 MG PO; ONDANSETRON ODT4 MG PO; PROBIOTIC1 EAC7 PO; PROSOL2000 ML; RENVELA0.8 GM PO; THERA-D2000 UNIT PO; TYLENOL325 M1 PO; VENLAFAXINE HC150 MG PO; VITAMIN C500 M2 PO
[2020-05-25 07:02] VITALS: BP 119/60
[2020-05-25 07:36] LABS: ABSOLUTE BASOPHILS 0.1 thou/uL (0.0-0.2); ABSOLUTE EOSINOPHILS 0.2 thou/uL (0.0-0.7); ABSOLUTE LYMPHOCYTES 0.8 thou/uL (0.8-5.3); ABSOLUTE MONOCYTES 0.6 thou/uL (0.0-1.2); ABSOLUTE NEUTROPHILS 3.9 thou/uL (1.6-8.1); BASOPHILS 1.5 %; HEMATOCRIT 30.2 % (42.0-52.0); HEMOGLOBIN 9.9 gm/dL (14.0-18.0); LYMPHOCYTES 14.4 %; MCH 29.9 pg (26.0-34.0); MCHC 32.8 g/dL (28.0-37.0); MCV 91.1 fL (80.0-100.0); MONOCYTES 10.3 %; MPV 6.5 fl. (7.2-11.1); NUCLEATED RBCS 0 /100WBC; PLATELET COUNT* 207 thou/uL (150-400); POLYS 70.8 %; RBC 3.31 mil/uL (4.50-6.00); RDW-CV 18.6 % (10.5-14.5); WBC 5.5 thou/uL (4.0-11.0)
[2020-05-25 07:48] LABS: APTT 30.9 Seconds (25.0-31.3); INR 1.1; PROTIME 11.7 Seconds (9.20-11.50)
[2020-05-25 08:14] LABS: CALCIUM 8.7 mg/dL (8.5-10.1); CREATININE 8.4 mg/dL (0.6-1.3)
[2020-05-25 08:15] LABS: POTASSIUM 6.2 mmol/L (3.5-5.1)
[2020-05-25 08:24] LABS: TOTAL BILIRUBIN 0.9 mg/dL (<0.1-1.0)
[2020-05-25 11:24] VITALS: BP 130/82
--- NOTE | 2020-05-25 11:42 | EKG ---
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: [facility] : 1950 Requested By: David Tam Order Number: [id number] MD: Zackary Anthony Measurements Intervals [place] Rate: 86 P: [place]: QRS: 84 QRSD: 120 T: -52 QT: 402 QTc: 481 Interpretive Statements sinus rhythm with first degree AV block Nonspecific intraventricular conduction delay Borderline T abnormalities, inferior leads No previous ECG available for comparison Electronically Signed On 05-25-2020 11:41:44 CDT by Zackary Anthony [email or web address] <ELECTRONICALLY SIGNED> By: Zackary Anthony MD, [facility] 05/25/20 1141 07 6 Zackary Anthony MD, [facility] /EPI
[2020-05-25 11:48] VITALS: BP 118/67
[2020-05-25] MEDS ORDERED: VENLAFAXINE HC150 M1 PO (13:23)
[2020-05-25] MEDS ORDERED: LIPITOR40 MG PO (13:23)
[2020-05-25] MEDS ORDERED: MIDODRINE HCL 55 M1 PO (13:25)
[2020-05-25] MEDS ORDERED: MIDODRINE HCL10 MG PO (13:25)
[2020-05-25] MEDS ORDERED: GABAPENTIN100 MG PO (13:26)
[2020-05-25] MEDS ORDERED: ABILIFY 5 MG TAB5 M1 PO (13:26)
[2020-05-25] MEDS ORDERED: ASPIRIN325 PO (13:27)
[2020-05-25] MEDS ORDERED: RENVELA800 MG PO (13:28)
[2020-05-25] MEDS ORDERED: LOMOTIL 2.5-0.01 TAB PO (13:29)
[2020-05-25] MEDS ORDERED: ALPRAZOLAM 0.0.25 M1 PO (13:29)
[2020-05-25] MEDS ORDERED: FISH OIL 500 M1 EAC1 PO (13:30)
[2020-05-25] MEDS ORDERED: VITAMIN B-121000 MC3 PO (13:31)
[2020-05-25] MEDS ORDERED: VITAMIN D31250 MC1 PO (13:32)
[2020-05-25 20:00] VITALS: BP 116/68
[2020-05-26] VITALS: BP 130/64
[2020-05-26 04:00] VITALS: BP 105/57
[2020-05-26 05:36] LABS: CREATININE 5.6 mg/dL (0.6-1.3); POTASSIUM 4.8 mmol/L (3.5-5.1)
[2020-05-26 08:00] VITALS: BP 137/76
--- NOTE | 2020-05-26 13:05 | 2DMMODE ---
[place] [address] 2 D/M-MODE ECHOCARDIOGRAM Name: JAROCHO CALZADA Room: [address] IN .R.#: [id number] Admission: 05/25/20 Attend Phys: Elen Avila, Discharge: Date of : 48 Date of Service: 05/26/20 1304 Report #: [id number] THIS REPORT FOR: cc: Scout Arcos MD, Michael S. MD Blick, David R. MD [facility] ~ APPROVED REPORT Study performed: 05/26/2020 10:05:21 EXAM: Comprehensive 2D, Doppler, and color-flow Echocardiogram Patient Location: Bedside BSA: 2.27 HR: 98 bpm BP: 105/57 mmHg Other Information Study Quality: Fair Indications Congestive Heart Failure Dyspnea 2D Dimensions IVSd: 10.12 (7-11mm) LVOT Diam: 23.67 (18-24mm) LVDd: 53.41 mm PWd: 7.65 (7-11mm) Ascending Ao: 36.76 (22-36mm) LVDs: 40.08 (25-40mm) Aortic Root: 30.85 mm Volumes Left Atrial Volume (Systole) LA ESV Index: 30.80 mL/m2 Aortic Valve AoV Peak Hal.: 1.87 m/s AO Peak Gr.: 13.99 mmHg LVOT Max P.98 mmHg AO Mean Gr.: 7.48 mmHg LVOT Mean P.19 mmHg LVOT Max V: 0.70 m/s AO V2 VTI: 38.24 cm LVOT Mean V: 0.51 m/s TODD (VTI): 1.88 cm2 LVOT V1 VTI: 16.35 [place] [address] 2 D/M-MODE ECHOCARDIOGRAM Name: JAROCHO CALZADA Room: [address] IN .R.#: [id number] Admission: 05/25/20 Attend Phys: Elen Avila, Discharge: Date of : 48 Date of Service: 05/26/20 1304 Report #: [id number] E/A Ratio: 2.45 MV Decel. Time: 126.96 ms MV E Max Hal.: 1.17 m/s MV PHT: 36.82 ms MVA (PHT): 5.98 cm2 TDI E/Lateral E': 8.36 E/Medial E': 13.00 Medial E' Hal.: 0.09 m/s Lateral E' Hal.: 0.14 m/s Pulmonary Valve PV Peak Hal.: 0.87 m/s PV Peak Gr.: 3.02 mmHg Tricuspid Valve RAP Estimate: 5.00 mmHg TR Peak Gr.: 50.95 mmHg RVSP: 55.95 mmHg PA Pressure: 55.95 mmHg Left Ventricle The left ventricle is normal size. Paradoxical septal motion consistent with a paced rhythm endocardium was not well visualized making segmental wall motion analysis difficult There is normal left ventricular wall thickness. Left ventricular systolic function is borderline. Right Ventricle The right ventricle is normal size. The right ventricular systolic function is normal. Pacemaker lead is present in the right ventricle. Atria Left atrium is mildly dilated. Right atrium is dilated. Aortic Valve The aortic valve is normal in structure. No aortic regurgitation is present. There is no aortic valvular stenosis. Mitral Valve The mitral valve is normal in structure. Mild mitral annular calcification. There is no mitral valve regurgitation noted. No evidence of mitral valve stenosis. Tricuspid Valve The tricuspid valve is normal in structure. Trace tricuspid regurgitation. estimated pa pressure 55 [place] [address] 2 D/M-MODE ECHOCARDIOGRAM Name: ZHENGJAROCHO Tae Room: [address] IN [facility]#: [id number] Admission: 05/25/20 Attend Phys: Elen Avila, Discharge: Date of : 48 Date of Service: 05/26/20 1304 Report #: [id number] Pulmonic Valve Pulmonic valve is not well visualized. There is no pulmonic valvular regurgitation. Great Vessels The aortic root is normal in size. IVC is normal in size and collapses >50% with inspiration. Pericardium There is no pericardial effusion. <Conclusion> Left ventricular systolic function is borderline. Trace tricuspid regurgitation. estimated pa pressure 55 mm Hg <ELECTRONICALLY SIGNED> By: Zackary Anthony MD, FACC 05/26/20 1304 1304 1304 Zackary Anthony MD, FACC /INF
[2020-05-26 19:00] VITALS: BP 128/71
[2020-05-26 20:00] VITALS: BP 124/63
[2020-05-27 00:04] VITALS: BP 131/65
[2020-05-27 04:00] VITALS: BP 138/69
[2020-05-27 08:35] VITALS: BP 112/58
[2020-05-27 16:00] VITALS: BP 111/33
[2020-05-27 20:00] VITALS: BP 105/52
[2020-05-28] VITALS (7 sets, daily range): BP systolic 107–168; BP diastolic 42–58
[2020-05-28 04:16] LABS: HEMATOCRIT 29.3 % (42.0-52.0); HEMOGLOBIN 9.4 gm/dL (14.0-18.0); MCH 29.3 pg (26.0-34.0); MCHC 32.2 g/dL (28.0-37.0); MCV 91.2 fL (80.0-100.0); MPV 6.5 fl. (7.2-11.1); RBC 3.22 mil/uL (4.50-6.00); WBC 5.7 thou/uL (4.0-11.0)
[2020-05-28 04:29] LABS: CALCIUM 8.6 mg/dL (8.5-10.1); CREATININE 5.8 mg/dL (0.6-1.3); POTASSIUM 5.1 mmol/L (3.5-5.1)
[2020-05-29 00:44] VITALS: BP 127/53
[2020-05-29 04:18] VITALS: BP 147/73
[2020-05-29 07:50] VITALS: BP 108/49
[2020-05-29 10:06] LABS: ANA INTERPRETATION Negative (Negative); ANTIJO-I AB <0.2 AI (0.0-0.9)
[2020-05-29 12:00] VITALS: BP 123/55
--- NOTE | 2020-05-29 12:32 | CON ---
[address] [address] CONSULTATION Name: JAROCHO CALZADA Tae Room: [address] IN M.R.#: [id number] Admission: 05/25/20 Attend Phys: Elen Avila MD Discharge: Date of : 48 Report #: [id number] THIS REPORT FOR: //name// cc: Scout Arcos MD, Michael S. MD ~ THIS REPORT FOR: //name// CC: Elen Arcos MD DATE OF SERVICE: 05/28/2020 CARDIOLOGY CONSULTATION HISTORY OF PRESENT ILLNESS: The patient is a 70-year-old white male who I was asked to see in the hospital today after he was noted to be tachycardic. The patient has an extensive and complicated past medical history. He is primarily cared for at [facility]. He states that he has a long history of diabetes and 3 years ago underwent triple vessel bypass surgery at [facility] on the [place]. Apparently at the same time, he developed end-stage renal disease and has been on hemodialysis since that time. He had a pacemaker inserted in 2017 at [facility]. He has a [employer] pacemaker. He is not very active at this time and uses a walker. He denies recent chest pain, shortness of breath, palpitations, cough, syncope. Recently, he has felt weak. He apparently did miss a dialysis. He came to the Emergency Room by ambulance 2 days ago with weakness. He does have oxygen at home. He was admitted for further evaluation and treatment. On admission, the patient was in a sinus rhythm. He received dialysis. Yesterday afternoon, the patient developed a narrow complex tachycardia at 140 beats per minute. He was placed on diltiazem and converted to sinus rhythm. Cardiology consultation requested. He denies a history of syncope. PAST MEDICAL HISTORY: Otherwise, no surgical procedures. He does have a history of hypertension. He has had previous rotator cuff surgery. He had a stroke in the past affecting his right arm. He has a history of anemia. MEDICATIONS: On admission included Xanax, Abilify, aspirin, Lipitor, Neurontin, hydrocodone, midodrine. ALLERGIES: HE HAS ALLERGY TO CIPRO AND SULFA DRUGS. FAMILY HISTORY: His father of heart attack. SOCIAL HISTORY: He is . He and his live in [place]. 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 No smoking[place] [address] CONSULTATION Name: JAROCHO CALZADA Room: [address]#: [id number] Admission: 05/25/20 Attend Phys: Elen Avila MD Discharge: Date of : 48 Report #: [id number] REVIEW OF SYSTEMS: No history of asthma, liver disease, cancer, psychiatric illness, chronic skin condition. PHYSICAL EXAMINATION: GENERAL: Revealed an elderly male, lying in bed. He appeared in no distress. VITAL SIGNS: He had a blood pressure of 120/60, pulse is 80. He is afebrile. HEENT: He was anicteric. Conjunctivae are pink. Mucous membranes moist. NECK: Veins difficult to assess due to obesity. No carotid bruits. CHEST: Clear to auscultation. CARDIOVASCULAR: Regular rate and rhythm. Grade 2 systolic ejection murmur. ABDOMEN: Obese. EXTREMITIES: He had no edema. SKIN: Cool and dry. NEUROLOGIC: Nonfocal. He is 5 feet 8, 250 pounds. His ECG on admission 3 days ago showed a sinus rhythm, nonspecific T-wave changes. Yesterday, ECG showed a narrow complex tachycardia at 150 beats per minute consistent with paroxysmal atrial tachycardia versus PSVT. Currently, the patient is atrial paced. His workup, the patient had an echocardiogram 2 days ago here at [facility] after he was admitted that showed normal left ventricular function, moderate pulmonary hypertension. His portable chest x-ray on admission showed evidence of a pacemaker, mild cardiomegaly, some atelectasis. He had a CT scan of the head without contrast that showed cerebral atrophy. LABORATORY DATA: Sodium 136, potassium 5.1, creatinine 5.8. Troponins all 0.06. TSH 2.8. White blood cell count 5.7, hemoglobin 9.4. IMPRESSION AND RECOMMENDATIONS: 1. Weakness. Reason unclear. 2. Paroxysmal supraventricular tachycardia. Currently on diltiazem. No previous episodes. Blood pressure has been low in the past. I would consider starting the patient on amiodarone. 3. End-stage renal disease. 4. Previous coronary artery bypass surgery. No recent angina. 5. Diabetes. 6. Previous stroke. 7. Anemia. <ELECTRONICALLY SIGNED> By: Zackary Anthony MD, FACC 05/29/20 1232 0758 [id number] Anthony MD, FAC /nt
[2020-05-29] MEDS ORDERED: PACERONE 200 M200 M1 PO (13:42)
[2020-05-29] MEDS ORDERED: CARDIZEM CD240 M1 PO (13:42)
[2020-05-29 16:00] VITALS: BP 118/63
--- NOTE | 2020-05-29 17:08 | 2DMMODE ---
[place] [address] 2 D/M-MODE ECHOCARDIOGRAM Name: JAROCHO CALZADA Room: [address] IN .R.#: [id number] Admission: 05/25/20 Attend Phys: Elen Avila, Discharge: Date of : 48 Date of Service: 05/29/20 1708 Report #: [id number] THIS REPORT FOR: cc: Scout Arcos MD, Michael S. MD Holkins, John M. MD [facility] ~ APPROVED REPORT Study performed: 05/29/2020 14:03:44 EXAM: Comprehensive 2D, Doppler, and color-flow Echocardiogram Patient Location: In-Patient Room #: [facility] BSA: 2.27 HR: 72 bpm BP: 108/49 mmHg Other Information Study Quality: Fair Technically limited study due to body habitus. Indications Dyspnea 2D Dimensions IVSd: 9.67 (7-11mm) LVOT Diam: 21.16 (18-24mm) LVDd: 34.79 mm PWd: 9.40 (7-11mm) Ascending Ao: 35.05 (22-36mm) LVDs: 22.11 (25-40mm) Aortic Root: 21.87 mm Volumes Left Atrial Volume (Systole) LA ESV Index: 14.70 mL/m2 Aortic Valve AoV Peak Hal.: 0.68 m/s AO Peak Gr.: 1.83 mmHg LVOT Max P.47 mmHg AO Mean Gr.: 0.89 mmHg LVOT Mean P.66 mmHg LVOT Max V: 0.61 m/s AO V2 VTI: 11.87 cm LVOT Mean V: 0.36 m/s TODD (VTI): 3.69 cm2 LVOT V1 VTI: 12.47 [place] [address] 2 D/M-MODE ECHOCARDIOGRAM Name: JAROCHO CALZADA Room: [address] IN ..#: [id number] Admission: 05/25/20 Attend Phys: Elen Avila, Discharge: Date of : 48 Date of Service: 05/29/20 1708 Report #: [id number] Mitral Valve E/A Ratio: 3.64 MV Decel. Time: 145.04 ms MV E Max Hal.: 1.03 m/s MV PHT: 42.06 ms MVA (PHT): 5.23 cm2 TDI E/Lateral E': 7.92 E/Medial E': 9.36 Medial E' Hal.: 0.11 m/s Lateral E' Hal.: 0.13 m/s Pulmonary Valve PV Peak Hal.: 0.72 m/s PV Peak Gr.: 2.07 mmHg Tricuspid Valve RAP Estimate: 5.00 mmHg TR Peak Gr.: 33.39 mmHg RVSP: 38.39 mmHg PA Pressure: 38.39 mmHg Left Ventricle The left ventricle is normal size. Paradoxical septal motion. There is normal left ventricular wall thickness. Left ventricular systolic function is normal. The left ventricular ejection fraction is within the normal range. LVEF is 50-55%. This study is not technically sufficient to allow evaluation of the LV diastolic function. Right Ventricle The right ventricle is normal size. The right ventricular systolic function is normal. Pacemaker lead is present in the right ventricle. Atria The left atrium size is normal. Pacemaker lead is present in the right atrium. Aortic Valve The aortic valve is normal in structure. No aortic regurgitation is present. There is no aortic valvular stenosis. Mitral Valve Mitral valve leaflets are mildly thickened. Mild mitral regurgitation. No evidence of mitral valve stenosis. Tricuspid Valve The tricuspid valve is normal in structure. Mild to moderate tricuspid regurgitation. Moderate [place] [address] 2 D/M-MODE ECHOCARDIOGRAM Name: JAROCHO CALZADA Room: [address] IN ..#: [id number] Admission: 05/25/20 Attend Phys: Elen Avila, Discharge: Date of : 48 Date of Service: 05/29/20 1708 Report #: [id number] Pulmonic Valve The pulmonary valve is normal in structure. There is no pulmonic valvular regurgitation. Great Vessels The aortic root is normal in size. IVC is normal in size and collapses >50% with inspiration. Pericardium There is no pericardial effusion. <Conclusion> The left ventricle is normal size. Left ventricular systolic function is normal. The left ventricular ejection fraction is within the normal range. LVEF is 50-55%. The right ventricle is normal size. The left atrium size is normal. The aortic valve is normal in structure. Mitral valve leaflets are mildly thickened. Mild mitral regurgitation. The tricuspid valve is normal in structure. Mild to moderate tricuspid regurgitation. Moderate pulmonary hypertension. There is no pericardial effusion. Paradoxical septal motion. Pacemaker lead is present in the right ventricle. <ELECTRONICALLY SIGNED> By: Dheeraj Pimentel MD, FACC 05/29/201707 07 07 Dheeraj Pimentel MD, FACC /INF
--- NOTE | 2020-05-29 18:23 | EKG ---
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: : 1950 Requested By: Stuart Mtz Order Number: [id number] Navjot MD: Scout Llanos Measurements Intervals [place] Rate: 146 P: [place]: QRS: 110 QRSD: 92 T: -73 QT: 301 QTc: 470 Interpretive Statements Atrial fibrillation with rapid ventricular response rate Right axis deviation Low voltage, extremity leads ST depression, probably rate related Compared to ECG 05/25/2020 07:17:11 Right-axis deviation now present Low QRS voltage now present ST (T wave) deviation now present Sinus rhythm no longer present First degree AV block no longer present Intraventricular conduction delay no longer present T-wave abnormality no longer present Electronically Signed On 05-29-2020 18:22:59 CDT by Scout Llanos [email or web address] <ELECTRONICALLY SIGNED> By: Scout Llanos MD, FACC 05/29/20 1822 1523 152 Scout Llanos MD, [facility] /EPI
--- NOTE | 2020-05-29 18:32 | EKG ---
[place] [address] ELECTROCARDIOGRAM REPORT Name: JAROCHO CALZADA Tae Room: [address] IN [facility].#: [id number] Admission: 05/25/20 Attend Phys: Elen Avila, Discharge: Date of : 48 Date of Service: 05/29/20 1145 Report #: [id number] THIS REPORT FOR: //name// [facility] Test Date: 2020-05-29 Test Time: 11:45:12 Pat Name: JAROCHO CALZADA Department: Room: [address] Gender: M Hospital Admissions Officer: : 1950 Requested By: Zackary Anthony Order Number: [id number] Navjot MD: Scout Llanos Measurements Intervals [place] Rate: 72 P: 54 OK: 191 QRS: 92 QRSD: 92 T: QT: 598 QTc: 655 Interpretive Statements Sinus rhythm Right axis deviation Low voltage, extremity leads Prolonged QT interval Compared to ECG 05/27/2020 15:23:38 Prolonged QT interval now present Junctional tachycardia no longer present ST (T wave) deviation no longer present Electronically Signed On 05-29-2020 18:32:27 CDT by Scotu Llanos [email or web address] <ELECTRONICALLY SIGNED> By: Scout Llanos MD, FACC 05/29/20 1832 1145 1145 Scout Llanos MD, FACC /EPI
[2020-05-29 20:12] VITALS: BP 104/60
[2020-05-30] VITALS: BP 94/53
[2020-05-30 04:00] VITALS: BP 107/51
[2020-05-30 05:35] LABS: ALBUMIN 2.9 g/dL (3.4-5.0); CALCIUM 8.6 mg/dL (8.5-10.1); PHOSPHORUS* 4.8 mg/dL (2.5-4.9); POTASSIUM 5.4 mmol/L (3.5-5.1)
[2020-05-30 08:00] VITALS: BP 107/55
[2020-05-30 08:21] VITALS: BP 107/55
[2020-05-30] MEDS ORDERED: PLAVIX 75 MG TA75 M1 PO (09:55)
[2020-05-30] MEDS ORDERED: ASA81BEC PO (09:56)
== END 2020-05-30 14:16 | DRG 91 ==
LOC: M.ERS 07:00 → M.2W 08:47 → M.TBA-ER 08:47 → M.2W 11:47
PROVIDERS: Emergency Medicine Emergency Medical Services; Internal Medicine; Internal Medicine Nephrology; ADMIT Internal Medicine; ATTEND Internal Medicine
PROC: 5A1D70Z Performance of Urinary Filtration, Intermittent, Less than 6 Hours Per Day (ICD-10-PCS; principal; 2020-05-25)
PROC: 5A1D70Z Performance of Urinary Filtration, Intermittent, Less than 6 Hours Per Day (ICD-10-PCS; 2020-05-27)
PROC: 5A1D70Z Performance of Urinary Filtration, Intermittent, Less than 6 Hours Per Day (ICD-10-PCS; 2020-05-30)
DX: G95.11 Acute infarction of spinal cord (embolic) (nonembolic) (principal); N18.6 End stage renal disease; I50.33 Acute on chronic diastolic (congestive) heart failure; I13.2 Hypertensive heart and chronic kidney disease with heart failure and with stage 5 chronic kidney disease, or end stage renal disease; I47.1 Supraventricular tachycardia; E87.5 Hyperkalemia; E11.22 Type 2 diabetes mellitus with diabetic chronic kidney disease; I25.10 Atherosclerotic heart disease of native coronary artery without angina pectoris; D64.9 Anemia, unspecified; I48.91 Unspecified atrial fibrillation; E11.40 Type 2 diabetes mellitus with diabetic neuropathy, unspecified; I07.1 Rheumatic tricuspid insufficiency; Z20.828 Contact with and (suspected) exposure to other viral communicable diseases; Z95.1 Presence of aortocoronary bypass graft; Z86.73 Personal history of transient ischemic attack (TIA), and cerebral infarction without residual deficits; Z95.0 Presence of cardiac pacemaker; Z88.1 Allergy status to other antibiotic agents; Z88.2 Allergy status to sulfonamides; Z88.8 Allergy status to other drugs, medicaments and biological substances; Z79.899 Other long term (current) drug therapy; Z79.82 Long term (current) use of aspirin

== ENCOUNTER 2020-05-29 18:13 | Inpatient (IN) | payer MEDICARE ==
[~2020-05-29] VITALS: Ht 172.7 cm; Wt 106.7 kg
[~2020-05-29 18:13] MED LIST changes: +ABILIFY 5 MG TAB5 M1 PO; +ALPRAZOLAM 0.0.25 M1 PO; +ASPIRIN325 PO; +CARDIZEM CD240 M1 PO; +FISH OIL 500 M1 EAC1 PO; +GABAPENTIN100 MG PO; +MIDODRINE HCL10 MG PO; +PACERONE 200 M200 M1 PO; +RENVELA800 MG PO; +VENLAFAXINE HC150 M1 PO; +VITAMIN B-121000 MC3 PO; +VITAMIN D31250 MC1 PO
[2020-05-30] MEDS ORDERED: PLAVIX 75 MG TA75 M1 PO (09:55)
[2020-05-30] MEDS ORDERED: ASA81BEC PO (09:56)
[2020-05-30 15:09] VITALS: BP 108/56
--- NOTE | 2020-05-30 17:37 | NUR ---
PT ADMITTED TO ROOM 333 FOLLOWING DIALYSIS TODAY. ADMITTING DX OF SPINAL CORD INFARCT. PT IS A/O AND COOPERATIVE, HAS BEEN ON REHAB UNIT PREVIOUSLY AND REMEMBERS EXPECTATIONS. ADMISSION PROCESS COMPLETED. FALL PRECAUTIONS AND HOURLY ROUNDING IMOLEMENTED.
[2020-05-30 19:00] VITALS: BP 102/54
--- NOTE | 2020-05-30 21:00 | NUR ---
RESTING QUIETLY IN BED. COMPLAINING OF PAIN IN RIGHT BUTTOCK. GAVE SCHEDULED HYDROCODONE. PROVIDED A SNACK. 02 SAT 93% ON 2 LITERS NASAL CANNULA. PATIENT STATES DOESN'T MAKE URINE. CALL LIGHT WITHIN REACH. TOOK MEDICATIONS WHOLE WITH WATER.
--- NOTE | 2020-05-31 05:00 | NUR ---
RESTED ON/OFF. NO FURTHER COMPLAINT OF PAIN. REFUSES ASSISTANCE TO REPOSITION. DOES SCOOT AROUND SOME IN BED ON HIS OWN. HOURLY ROUNDING IN PROGRESS.
[2020-05-31 07:30] VITALS: BP 105/47
[2020-05-31 08:04] VITALS: BP 105/47
[2020-05-31 08:47] LABS: HEMATOCRIT 29.7 % (42.0-52.0); HEMOGLOBIN 9.5 gm/dL (14.0-18.0); MCH 29.3 pg (26.0-34.0); MCHC 31.9 g/dL (28.0-37.0); MCV 91.7 fL (80.0-100.0); MPV 6.7 fl. (7.2-11.1); RBC 3.24 mil/uL (4.50-6.00); WBC 5.8 thou/uL (4.0-11.0)
[2020-05-31 08:58] LABS: CALCIUM 8.7 mg/dL (8.5-10.1); POTASSIUM 4.8 mmol/L (3.5-5.1)
[2020-05-31 09:00] LABS: CREATININE 5.6 mg/dL (0.6-1.3)
--- NOTE | 2020-05-31 17:29 | NUR ---
AM ASSESSMENT AND VITAL SIGNS COMPLETED DOCUMENTED. PT HAS BEEN UP IN HIS CHAIR MOST OF THE DAY HE PREFERS. PT INSTRUCTED ON THE IMPORTANCE OF SHIFTING HIS WEIGHT FREQUENTLY TO PREVENT SKIN BREAKDOWN. TO BANKS DISCUSSED DURING TEAM MEETING AND THEY AGREED TO SUPPLY ONE DURING HIS STAY. FALL PRECAUTIONS AND HOURLY ROUNDING CONTINUE.
[2020-05-31 19:00] VITALS: BP 93/51
--- NOTE | 2020-05-31 23:32 | NUR ---
ASSUMED CARE AT 1930. PATIENT RESTING IN BED. ASSISTED WITH TURNS. TAKES PILLS WHOLE WITH WATER. DIALYSIS FISTULA INTACT WITH POSITIVE THRILL AND BRUIT. TAKES PILLS WHOLE WITH WATER. REINFORCED INSTRUCTIONS ON TURNING TO PREVENT SKIN BREAKDOWN. STATES DOES NOT VOID. O2 2L/NC. HOURLY ROUNDS CONTINUE. BED ALARM ON. CALL LITE IN REACH.
[2020-06-01 05:32] LABS: ALBUMIN 2.8 g/dL (3.4-5.0); CALCIUM 8.7 mg/dL (8.5-10.1); PHOSPHORUS* 4.1 mg/dL (2.5-4.9); POTASSIUM 4.7 mmol/L (3.5-5.1)
[2020-06-01 05:35] LABS: CREATININE 6.8 mg/dL (0.6-1.3)
--- NOTE | 2020-06-01 05:46 | NUR ---
OBSERVED RESTING WITH EYES CLOSED MOST OF THE NIGHT. NO C/O PAIN. HOURLY ROUNDS CONTINUE. BED ALARM ON. CALL LITE IN REACH.
[2020-06-01 08:00] VITALS: BP 132/58
--- NOTE | 2020-06-01 16:43 | NUR ---
ASSUMMED CARE OF PT AT 0730, PT ALERT AND ORIENTED, FORGETFUL, O2 ON AT 2L WITH SATS OF 98-100%, LEFT FISTULA IN LEFT ARM, UP WITH ASSIST OF 1, GB WALKER, MOVES SLOWLY, CUEING, TAKING FOOD AND FLUIDS WELL, DENIES PAIN, DIALYSIS THIS PM, REPOSTIONED EVERY 2 HOURS PARTICIPATED IN ALL THERAPIES, HOURLY ROUNDING COMPLETED, ASSESSMENT COMPLETE, WILL CONTINUE TO MONITOR.
[2020-06-01 18:15] VITALS: BP 96/60
[2020-06-01 19:55] VITALS: BP 134/44
[2020-06-02 05:09] LABS: HEMATOCRIT 30.6 % (42.0-52.0); HEMOGLOBIN 9.8 gm/dL (14.0-18.0); MCH 29.3 pg (26.0-34.0); MCHC 32.1 g/dL (28.0-37.0); MCV 91.2 fL (80.0-100.0); RBC 3.35 mil/uL (4.50-6.00); RDW-CV 18.3 % (10.5-14.5); WBC 10.8 thou/uL (4.0-11.0)
[2020-06-02 05:22] LABS: CALCIUM 8.8 mg/dL (8.5-10.1); PHOSPHORUS* 3.3 mg/dL (2.5-4.9); POTASSIUM 4.7 mmol/L (3.5-5.1)
[2020-06-02 05:27] LABS: CREATININE 4.6 mg/dL (0.6-1.3)
[2020-06-02 08:00] VITALS: BP 104/50
[2020-06-02 12:00] VITALS: BP 96/40
--- NOTE | 2020-06-02 17:12 | NUR ---
ASSUMMED CARE OF PT AT 0730, PT ALERT AND ORIENTED, TRANSFERS WITH GB WALKER ASSIST OF 1, UP IN CHAIR, LEFT UPPER ARM FISTULA, O2 ON AT 2L WITH SATS OF 96%, BP MEDS HELP FOR LOW BP TODAY, 104/50 AND 96/48, PT DENIES DIZZINESS, TAKING FOOD AND FLUIDS WELL, DENIES PAIN, PARTICIPATED IN ALL THERAPIES, HOURLY ROUNDING COMPLETED, ASSESSMENT COMPLETE, WILL CONTINUE TO MONITOR.
[2020-06-02 20:32] VITALS: BP 81/43
[2020-06-03 08:00] VITALS: BP 98/50
--- NOTE | 2020-06-03 17:53 | NUR ---
AM ASSESSMENT AND VITAL SIGNS COMPLETED DOCUMENTED. PT COMPLETED AM THERAPIES AND HAD DIALYSIS IN THE AFTERNOON. PT IS BACK IN HIS ROOM HAVING DINNER WITH HIS , NO ACUTE DISTRESS. FALL PRECAUTIONS AND HOURLY ROUNDING CONTINUE.
[2020-06-03 20:00] VITALS: BP 99/44
[2020-06-04 04:48] LABS: HEMATOCRIT 27.2 % (42.0-52.0); HEMOGLOBIN 8.6 gm/dL (14.0-18.0); MCHC 31.5 g/dL (28.0-37.0); MCV 91.9 fL (80.0-100.0); MPV 6.8 fl. (7.2-11.1); RBC 2.96 mil/uL (4.50-6.00); RDW-CV 18.1 % (10.5-14.5); WBC 5.7 thou/uL (4.0-11.0)
[2020-06-04 05:13] LABS: CALCIUM 8.8 mg/dL (8.5-10.1); CREATININE 3.7 mg/dL (0.6-1.3); PHOSPHORUS* 3.4 mg/dL (2.5-4.9); POTASSIUM 3.8 mmol/L (3.5-5.1)
--- NOTE | 2020-06-04 05:32 | NUR ---
ASSUMED PT CARE AT 1930. PT ALERT AND ORIENTED, POLITE AND COOPERATIVE WITH CARES. SITTING UP IN CHAIR AT SHIFT CHANGE. TRANSFERRED TO BED WITH MAX ASSIST OF 2, GAITBELT AND WALKER. PT VERY WEAK AND UNSTEADY. DENIES PAIN. 2L 02 PER NC. FISTULA TO LEFT ARM. RESPOSITIONED WHEN AGREEABLE. USES CALL LIGHT APPROPRIATELY. CALL LIGHT IN REACH, BED ALARM ON FOR SAFETY. HOURLY ROUNDING IN PROGESS, WILL CONTINUE TO MONITOR.
[2020-06-04 08:00] VITALS: BP 102/53
[2020-06-04 20:00] VITALS: BP 96/54
--- NOTE | 2020-06-05 04:55 | NUR ---
ASSUMED PT CARE AT 1930. PT ALREADY IN BED AT SHIFT CHANGE. ALERT AND ORIENTED, POLITE AND COOPERATIVE WITH CARES. DENIES PAIN. WEARING 2L OF 02 PER NC. FISTULA TO LEFT ARM, DRESSING C/D/I. PT SLEPT WELL OVERNIGHT, Q2 TURNS. PT AWAKE AT 0400 PER HOME SCHEDULE ASKING TO GET INTO RECLINER. PT TRANSFERRED WITH MAX ASSIST OF TWO, GAIT BELT AND WALKER. CALL LIGHT IN REACH, BED ALARM ON FOR SAFETY. HOURLY ROUNDING IN PROGRESS, WILL CONTINUE TO MONITOR.
[2020-06-05 08:30] VITALS: BP 136/58
--- NOTE | 2020-06-05 17:16 | NUR ---
ALERT AND ORIENTED X4. UP WITH 1 ASSIST, GAIT BELT AND WALKER. DENIES NEED FOR PAIN MEDICATION. HAS DIALYSIS FISTULA IN LEFT ARM. PATIENT DID NOT VOID THIS SHIFT. REMAINS ON O2 AT 2L/NC TO KEEP O2 SAT GREATER THAN 90%. NEEDED ENCOURAGEMENT TO HAVE PATIENT GET OUT OF W/C AND TO LAY DOWN. FALL PRECAUTIONS IN PLACE. BED ALARM AND CHAIR ALARM USED. USES CALL LIGHT WITHIN REACH.
[2020-06-05 20:00] VITALS: BP 105/56
--- NOTE | 2020-06-06 04:47 | NUR ---
ASSUMED PT CARE AT 1930, PT POLITE AND COOPERATIVE WITH CARES. SITTING UP IN CHAIR AT SHIFT CHANGE WATCHING FOOTBALL. TRANSFERS WITH MAX ASSIST OF TWO, GAIT BELT AND WALKER. PT SLEPT WELL OVERNIGHT BUT UP TO CHAIR AT 0400 TO CALL HIS EMPLOYEES. PT ON 2L 02 PER NC. DENIES PAIN. CALL LIGHT IN REACH, BED AND CHAIR ALARMS IN USE. HOURLY ROUNDING IN PROGRESS, WILL CONTINUE TO MONITOR.
[2020-06-06 08:00] VITALS: BP 99/51
--- NOTE | 2020-06-06 15:45 | NUR ---
ASSUMMED CARE OF PT AT 0730, PT TRANSFERS WITH MOD ASSIST OF 1, GB WALKER FROM BED TO CHAIR, DENIES PAIN, TAKING FOOD AND FLUIDS WELL, DIALYSIS SHUNT TO L UPPER ARM INTACT, TO DIALYSIS THIS PM, REPOSTIONED EVERY 2 HOURS, BP LOW THIS AM, , VIRIDIANA HELD, WILL INFORM PHYSICIAN ON ROUNDS, PARTICIPATED IN ALL THERAPIES, HOURLY ROUNDING COMPLETED, ASSESSMENT COMPLETE, WILL CONTINUE TO MONITOR.
--- NOTE | 2020-06-06 16:47 | NUR ---
CM SPOKE TO THE PT AND HIS SPOUSE TO DISCUSS ANY QUESTIIONS OR CONCERNS THAT THEY MIGHT HAVE. PT HAS NO QUESTIONS TO CONCERNS AT THIS TIME. PT'S SPOUSE INFORMS THAT SHE WOULD LIKE A W/C FOR PT. SHE IS ALSO CONCERNED WITH 'GETTING NYSTATIN FOR HIS FOLDS', AND BRINGING IN A CREAM FOR HIS LEGS THAT WAS PREASCRIBED BY HIS DR. CM WILL REMAIN AVAILABLE TO ASSIST AND FOLLOW NEEDED.
[2020-06-06 17:06] LABS: HEPATITIS B SURFACE AG Negative (Negative)
[2020-06-06 20:00] VITALS: BP 104/63
--- NOTE | 2020-06-07 05:19 | NUR ---
ASSUMED CARE AT 1920. ALERT AND ORIENTED. PLEASANT. DENIED ANY PAIN. O2 SATS DROPPED TO 80'S AND SO WAS PLACED ON O2 2L NC OVERNIGHT. MOD ASSIST WITH GAIT BELT AND WALKER. NEEDS SOME BOOSTING FROM SIT TO STAND. GOT UP TO RECLINER FOR SHORT TIME BEFORE BACK TO BED. PT TURNED ONTO SIDE IN BED. SLEPT LITTLE. CALL LIGHT IN REACH AND BED ALARM ON.
[2020-06-07 08:00] VITALS: BP 92/56
--- NOTE | 2020-06-07 14:46 | NUR ---
TEAM CONFRENCE MEETING HELD TODAY. CM AND PHYSICIAN INFORMED PT OF MEETING AND PLAN TO RE-TEAM AND FOR PT TO REMAIN ON THE UNIT AND CONTINUE THERAPIES FOR ANOTHER WEEK. CM SPOKE TO PT'S SPOUSE OF THE ABOVE INFO AND SHE IS IN AGREEMENT WELL. PT PROGRESSING TOWARDS GOALS, BUT BARRIERS ARE FETIGUE, DECREASED STRENGTH AND BALANCE, AND POOR TOLERANCE. CM WILL REMAIN AVAILABLE TO ASSIST AND FOLLOW NEEDED.
--- NOTE | 2020-06-07 14:54 | NUR ---
ASSUMMED CARE OF PT AT 0730, PT ALERT AND ORIENTED, PT TRANSFERS WITH MOD ASSIST, GB WALKER CUEING, UP IN CHAIR MUCH OF SHIFT, PT EDUCATED ON IMPORTANCE OF REPOSITIONING, SACRAL AREA RED, BARRIER OINTMENT APPLIED, PT ON RA AND SATING AT 98%, PT DENIES PAIN, TAKING FOOD AND FLUIDS WELL, BP LOW, ASYMPTOMATIC, CARDIZEM HELD, PT HAS NOT HAD BM FOR SEVERAL DAYS, WILL GIVE SUPPOSITORY AFTER THERAPIES THIS PM, PARTICIPATED IN ALL THERAPIES, HOURLY ROUNDING COMPLETED, ASSESSMENT COMPLETE, WILL CONTINUE TO MONITOR.
[2020-06-07 20:23] VITALS: BP 118/67
--- NOTE | 2020-06-08 05:33 | NUR ---
ASSUMED CARES AT 1920. ALERT AND ORIENTED. PLEASANT. DENIED ANY NEED FOR PAIN MEDS. HAS HAD SEVERAL INCONTINENT STOOLS DUE TO BEING GIVEN SUPPOSITORY EARLIER. PT VERY WEAK WITH TRANSFERS BECAUSE OF THIS, REQUIRING 2 PERSON ASSIST. BUTTOCKS RED. BARRIER CREAM. PT TURNED ONTO SIDES WHILE IN BED. SLEPT OFF AND ON. CALL LIGHT IN REACH.
[2020-06-08 08:00] VITALS: BP 105/51
[2020-06-08 13:58] LABS: HEMATOCRIT 26.2 % (42.0-52.0); HEMOGLOBIN 8.5 gm/dL (14.0-18.0); MCH 29.2 pg (26.0-34.0); MCHC 32.3 g/dL (28.0-37.0); MCV 90.3 fL (80.0-100.0); MPV 6.6 fl. (7.2-11.1); RBC 2.9 mil/uL (4.50-6.00); RDW-CV 17.7 % (10.5-14.5); WBC 7.1 thou/uL (4.0-11.0)
[2020-06-08 14:09] LABS: CALCIUM 8.7 mg/dL (8.5-10.1); CREATININE 4.5 mg/dL (0.6-1.3)
[2020-06-08 14:12] LABS: % SATURATION 14 % (20-39); IRON 23 ug/dL (50-175)
--- NOTE | 2020-06-08 18:59 | NUR ---
ASSESSMENT COMPLETED DOCUMENTED THIS MORNING. PATIENT TOLERATED THERAPY FAIR TODAY, UNABLE TO MOVE FEET OR LEGS WHEN NEEDED TO TRANSFER. DIALYSIS THIS AFTERNOON. AT BEDSIDE THIS EVENING.
[2020-06-08 20:14] VITALS: BP 92/42
[2020-06-09 04:22] VITALS: BP 105/43
--- NOTE | 2020-06-09 05:18 | NUR ---
PT A&OX4, VSS ON 2L NC, PT TURNED Q2H, THREE BM THIS SHIFT-SOFT, UNFORMED (SUPPOSITORY WAS GIVEN ON 06/07 AT 1600), NO C/O PAIN THIS SHIFT. HOURLY ROUNDINGS COMPLETE, WILL CONTINUE TO MONITOR.
[2020-06-09 08:07] VITALS: BP 119/63
--- NOTE | 2020-06-09 16:34 | NUR ---
ASSESSMENT COMPLETED DOCUMENTED THIS MORNING. PATIENT REQUIRING 2 MAX ASSIST/GB/FWW TO TRANSFER...ONLY ABLE TO TAKE A COUPLE OF VERY SMALL STEPS AND THEN CALLS OUT,,,"I'M GOING DOWN YOU BETTER HURRY." BOWEL MOVEMENT ON BSC IN ADDITION TO BEING INCONT. 02 ON AT 2LPM/NC. VERY FLAT AFFECT AND LACK OF MOTIVATION.
[2020-06-09 20:23] VITALS: BP 111/60
[2020-06-10 06:22] LABS: HEMATOCRIT 25.2 % (42.0-52.0); HEMOGLOBIN 8.3 gm/dL (14.0-18.0)
[2020-06-10 06:59] LABS: ALBUMIN 2.8 g/dL (3.4-5.0); CALCIUM 8.9 mg/dL (8.5-10.1); CREATININE 5.4 mg/dL (0.6-1.3); PHOSPHORUS* 3.9 mg/dL (2.5-4.9); POTASSIUM 4.3 mmol/L (3.5-5.1)
[2020-06-10 09:04] VITALS: BP 111/87
--- NOTE | 2020-06-10 16:23 | NUR ---
ASSUMMED CARE OF PT AT 0730, PT ALERT AND ORIENTED, TRANSFERS WITH MAX ASSIST OF 2, GB WALKER CUEING WITH A PIVOT TRANSFER FROM BED TO CHAIR, PT HAS DIFFICULTY PUSHING UP TO STANDING POSITION WELL MOVING LEGS, TAKING FOOD AND FLUIDS WITH ENCOURAGEMENT, PT HAD DIALYSIS THIS PM AND TOLERATED WELL,DIALYSIS SHUNT IN APRYL INTACT, PINK AREAS NOTED IN GROIN AND UNDER ABD FOLDS, NYSTATIN APPLIED, BUTTOCK RED, PT REPOSTIONED EVERY 2 HOURS, BUT INSISTS OF SITTING IN CHAIR, ENCOURAGED PT TO SHIFT HIPS, SITTING ON PILLOW, O2 ON AT 2L, SATS OF 100%, PT FEARFUL OF HAVING OXYGEN REMOVED, PT TEARFUL AND INTERVALS SAYING HE DOES NOT UNDERSTAND WHY HE CANT MOVE, FAMILY HERE TO VISIT THIS PM, NEUROLOGIST HERE TO SEE PT, CT SCAN ORDERED AWAITING FOR IT TO BE DONE, PARTICIPATED IN ALL THERAPIES, HOURLY ROUNDING COMPLETED, ASSESSMENT COMPLETE, WILL CONTINUE TO MONITOR.
[2020-06-10 19:00] VITALS: BP 109/46
--- NOTE | 2020-06-11 05:36 | NUR ---
ASSUMED CARES AT 1920. ALERT AND ORIENTED. PLEASANT. O2 2L NC. CT SCAN COMPLETED. NYSTATIN POWDER TO ABD FOLD. STOOL INCONTINENCE X 2. BARRIER CREAM TO SORE BOTTOM. AT 0300, PT INSISTENT ON GETTING UP TO RECLINER. MAX ASSIST X 2 PERSON. POOR TRANSFER. PT TOOK 2 STEPS AND UNABLE TO GO FURTHER DUE TO WEAKNESS. SLEPT LITTLE. CALL LIGHT IN REACH AND BED ALARM ON.
[2020-06-11 08:06] VITALS: BP 101/46
--- NOTE | 2020-06-11 15:59 | NUR ---
ASSUMMED CARE OF PT AT 0730, PT ALERT AND ORIENTED, PT TRANSFERS PER BRIGITTE LIFT, BUTTOCKS RED, BARRIER OINTMENT APPLIED, PT REPOSTIONED EVERY 2 HOURS, O2 ON AT 2L WITH SATS OF 95%, RESULTS OF CT SCAN CALLED TO DR DE LA ROSA, ORDERS RECIEVED, INFORMED PHYSICIAN OF LOW BP THIS AM, CARDIZEM HELD, SMALL SMEAR OF BM X 1, PT INSTRUCTED ON USE OF INCENTIVE SPIROMETER, NEUROLOGIST REQUESTING EMG RECORDS FROM [facility], REQUEST FAXED TO [facility], AWAITING REPORT, PT DOES NOT VOID, ON DIALYSIS, FISTULA INTACT LEFT UPPER ARM, HOURLY ROUNDING COMPLETED, ASSESSMENT COMPLETE, WILL CONTINUE TO MONITOR.
[2020-06-11 19:34] VITALS: BP 115/61
[2020-06-12 05:19] LABS: HEMATOCRIT 26.5 % (42.0-52.0); HEMOGLOBIN 8.4 gm/dL (14.0-18.0); MCH 28.9 pg (26.0-34.0); MCHC 31.8 g/dL (28.0-37.0); MCV 90.7 fL (80.0-100.0); MPV 6.4 fl. (7.2-11.1); RBC 2.93 mil/uL (4.50-6.00); RDW-CV 17.7 % (10.5-14.5); WBC 5.4 thou/uL (4.0-11.0)
[2020-06-12 05:31] LABS: CREATININE 5.7 mg/dL (0.6-1.3); MAGNESIUM 2.3 mg/dL (1.8-2.4); POTASSIUM 4.3 mmol/L (3.5-5.1)
--- NOTE | 2020-06-12 05:55 | NUR ---
ASSUMED CARES AT 1920. ALERT AND ORIENTED. FEELING DOWN. SAYS THAT FEELS "CRUMMY" AND IS WORRIED WHY HE FEELS THIS WAY. REASSURANCE GIVEN, REMINDED TO USE INCENTIVE SPIROMETRY. PT STATES THAT IS UNABLE TO PRODUCE SPUTUM SAMPLE. NO COUGH NOTED. ANURIA. O2 2L NC. STOOL INCONTINENCE. BUTTOCKS RED. LEFT BUTTOCK TINY FISSURE IS NOW MORE OPEN. BARRIER CREAM APPLIED. WEDGES USED TO TURN PT IN BED. SLEPT OFF AND ON. CALL LIGHT IN REACH AND BED ALARM ON.
[2020-06-12 08:47] VITALS: BP 110/57
--- NOTE | 2020-06-12 14:53 | NUR ---
WOUND NURSE: CONSULTED TO SEE PATIENT FOR AREA TO SACRUM. AREA ASSESSED AND NOTED TO BE SCAR TISSUE. NO OPEN AREA NOTED. BARRIER CREAM APPLIED. MINOR CONTUSION NOTED TO LEFT ELBOW MEASURING 0.3 X 0.3 X 0.1 WITH SCANT SEROSANGUINOUS DRAINAGE NOTED. PATIENT REPORTS ELBOW CONTUSION HAS BEEN THERE FOR ABOUT 2 WEEKS. AREA CLEANED WITH WOUND CLEANSER AND GAUZE AND PATTED DRY. MARATHON APPLIED. RECOMMEND LEAVING ELBOW OPEN TO AIR. PT EDUCATED ON REPOSITIONING SELF AND ASSISTED TO RIGHT SIDE.
--- NOTE | 2020-06-12 17:55 | NUR ---
[facility] UP WITH MAX ASSIST. INCONT OF BOWEL. DENIED NEED FOR PAIN MEDICATION.
[2020-06-12 19:00] VITALS: BP 108/56
--- NOTE | 2020-06-13 05:17 | NUR ---
ASSUMED CARE AT 1920. ALERT AND ORIENTED. PLEASANT. O2 2L NC AT NIGHT DUE TO SATS DROPPING INTO 80'S. NORCO GIVEN FOR BACK PAIN. STOOL INCONTINENCE. BARRIER CRM TO REDNESS BUTTOCKS. PT TURNED ONTO SIDES IN BED WHEN AGREEABLE. SLEPT LITTLE OFF AND ON. CALL LIGHT IN REACH AND BED ALARM ON.
[2020-06-13 08:00] VITALS: BP 105/67
--- NOTE | 2020-06-13 15:00 | NUR ---
CM SPOKE TO THE PT AND HIS SPOUSE TO DISCUSS ANY QUESTIONS OR CONCERNS THAT THEY MAY HAVE FOR TOMORROWS TEAM CONFRENCE MEETING. PT HAS NO QUESTIONS OR CONCERNS AT THIS TIME. PT'S SPOUSE INFORMS THAT SHE IS CONCERNED ABOUT PT'S 'PROGRESS WITH THERAPIES', 'HIS COMPLAINTS ABOUT SORE BOTTOM', AND 'IF HE HAS PNEUMONIA'. CM TO F/U WITH THE PT AND HIS SPOUSE AFTER TOMORROW'S MEETING.
--- NOTE | 2020-06-13 16:01 | NUR ---
ASSUMMED CARE OF PT AT 0730, PT ALERT AND ORIENTED, PT TRANSFERRED WITH MAX ASSIST OF THERAPY, REPOSTIONED EVERY 2 HOURS, DENIES PAIN, 02 SAT 95% ON RA, PT TOLERATES BEING OFF OF O2 THIS SHIFT, DIALYSIS FISTULA INTACT IN LEFT UPPER EXTREMITY, SMALL BM INCONTINENT X 1, BARRIER OINTMENT APPLIED TO SACRAL/BUTTOCKS AREA, SLIGHT REDNESS UNDER ABD AND GROIN FOLDS, NYSTATIN APPLIED, TAKING FOOD AND FLUIDS WELL, PARTICIPATED IN ALL THERAPIES, TO DIALYSIS THIS PM, HOURLY ROUNDING COMPLETED, ASSESSMENT COMPLETE, WILL CONTINUE TO MONITOR.
[2020-06-13 19:00] VITALS: BP 118/66
--- NOTE | 2020-06-14 04:18 | NUR ---
ASSUMED PT CARE AT 1930. PT RETURNING FROM DIALYSIS AT SHIFT CHANGE. DENIES PAIN, CHATTY AND IN GOOD SPIRITS. PT TURNED FROM SIDE TO SIDE Q2. BARRIER CREAM TO BUTTOCKS. NO VOID OR STOOL THIS SHIFT. DIALYSIS FISTULA IN RIGHT UPPER EXTREMITY, DRESSING C/D/I. NYSTATIN TO ABD AND GROIN FOLDS. ATE DINNER INDEPENDENTLY AND SNACKS OVERNIGHT. SLEPT OFF AND ON. CALL LIGHT IN REACH, BED ALARM ON FOR SAFETY. HOURLY ROUNDING IN PROGRESS, WILL CONTINUE TO MONITOR.
[2020-06-14 07:30] VITALS: BP 114/66
--- NOTE | 2020-06-14 15:40 | NUR ---
TEAM CONFRENCE MEETING HELD TODAY. CM AND REHAB PHYSICIAN INFORMED PT OF MEETING AND PLAN TO RE-TEAM AND FOR THE PT TO REMAIN ON THE UNIT AND CONTINUE THERAPIES FOR ANOTHER WEEK. PT IN AGREEMENT WITH THE PLAN. CM CONTACTED PT'S SPOUSE TO INFORM OF ALL OF THE ABOVE INFO AND SHE IN AGREEMENT WITH THE PLAN. PT PROGRESSING TOWARDS GOALS, BUT BARRIERS ARE LEFT KNEE PAIN, DIFFUSE WEAKNESS AND FETIGUE, AND ACTIVITY TOLERANCE. CM WILL REMAIN AVAILABLE TO ASSIST AND FOLLOW NEEDED.
--- NOTE | 2020-06-14 18:21 | NUR ---
ASSESSMENT COMPLETED DOCUMENTED THIS MORNING. PATIENT HAS IMPROVED WITH THERAPY TODAY, AMBULATING MORE AND INCREASING HIS ENDURANCE. ONE HYDROCODONE 5/325 AT 1230 FOR HIS KNEE PAIN WITH STATED ABILITY TO WORK WITH THERAPY MORE. PLEASANT AND COOPERATIVE.
[2020-06-14 19:00] VITALS: BP 110/56
--- NOTE | 2020-06-15 07:18 | NUR ---
ASSUMED PT CARE AT 1930. PT ALERT AND ORIENTED X4, POLITE AND COOPERATIVE WITH CARES. PT SITTING UP IN WHEELCHAIR AT SHIFT CHANGE. PT STAYED UP LATE, TRANSFERRED TO BED WITH ASSIST OF TWO, GAIT BELT AND WALKER. PT TURNED Q2 OVERNIGHT. BARRIER CREAM TO BUTTOCKS. PT UP TO SIT IN WHEELCHAIR AT 0500, ORDERING HIS ALTERNATIVE BREAKFAST. CALL LIGHT IN REACH, BED AND CHAIR ALARMS IN USE. HOURLY ROUNDING COMPLETE.
[2020-06-15 08:49] VITALS: BP 104/60
--- NOTE | 2020-06-15 18:54 | NUR ---
ASSESSMENT COMPLETED DOCUMENTED THIS MORNING. PATIENT UP AND TRANSFERRING WITH ONE ASSIST/GB/FWW. TAKEN TO DIALYSIS AND TOLERATED WELL WITH SOME LOW BP READINGS...MIDODRINE 10MG GIVEN BY DIALYSIS NURSE. PARTICIPATING WITH THERAPIES AND PROGRESSING WELL. NO RESP DISTRESS OR ISSUES NOTED TODAY.
[2020-06-15 20:00] VITALS: BP 94/53
--- NOTE | 2020-06-16 05:18 | NUR ---
ASSUMED CARES AT 1920. ALERT AND ORIENTED. PLEASANT. PT PLEASED THAT HE IS TRANSFERRING BETTER. MOD ASSIST WITH GAIT BELT AND WALKER. REDNESS TO BUTTOCKS. BARRIER CRM APPLIED. PT TURNED ONTO SIDES IN BED. SLEPT OFF AND ON. CALL LIGHT IN REACH AND BED ALARM ON.
[2020-06-16 08:00] VITALS: BP 111/57
--- NOTE | 2020-06-16 15:44 | NUR ---
ASSUMMED CARE OF PT AT 0730, PT ALERT AND ORIENTED, PT TRANSFERS WITH ASSIST OF 1, GB WALKER, FATIGUES EASILY, O2 97% ON RA, TAKING FOOD AND FLUIDS WELL, DIALYSIS SHUNT TO LEFT UPPER EXTREMITY, PT HAD SMALL FORMED BM X 1 THIS SHIFT, NO VOID, BUTTOCK RED, AND SMALL SCAB TO RIGHT BUTTOCK, REPOSTIONED EVERY 2 HOURS, PARTICIPATED IN ALL THERAPIES, HOURLY ROUNDING COMPLETED, ASSESSMENT COMPLETE, WILL CONTINUE TO MONITOR.
[2020-06-16 20:22] VITALS: BP 93/49
[2020-06-17 04:23] LABS: HEMOGLOBIN 8.8 gm/dL (14.0-18.0); MCH 28.9 pg (26.0-34.0); MCHC 31.6 g/dL (28.0-37.0); MCV 91.4 fL (80.0-100.0); MPV 6.7 fl. (7.2-11.1); RBC 3.07 mil/uL (4.50-6.00); RDW-CV 17.4 % (10.5-14.5); WBC 7.7 thou/uL (4.0-11.0)
[2020-06-17 05:13] LABS: ALBUMIN 3.2 g/dL (3.4-5.0); CALCIUM 8.4 mg/dL (8.5-10.1); CREATININE 5.1 mg/dL (0.6-1.3); MAGNESIUM 2.1 mg/dL (1.8-2.4); POTASSIUM 4.5 mmol/L (3.5-5.1); TOTAL BILIRUBIN 0.4 mg/dL (<0.1-1.0)
[2020-06-17 08:06] VITALS: BP 102/57
--- NOTE | 2020-06-17 18:39 | NUR ---
ASSESSMENT COMPLETED DOCUMENTED THIS MORNING. PATIENT UP IN CHAIR AT BEDSIDE ONLY REQUIRING ASSIST OF ONE WITH GB/FWW TO TRANSFER. TOLERATED DIALYSIS TODAY WELL, GOOD APPETITE AND NO ISSUES NOTED.
[2020-06-18 07:51] VITALS: BP 119/65
--- NOTE | 2020-06-18 18:07 | NUR ---
ASSESSMENT COMPLETED DOCUMENTED THIS MORNING. PATIENT HAS BEEN UP IN W/C DURING THE DAY AND TOLERATED WELL. ASSISTED TO BSC AND HAD A VERY LARGE BM THIS MORNING. NO C/O PAIN OR DISCOMFORT.
[2020-06-18 19:27] VITALS: BP 154/58
[2020-06-19 08:00] VITALS: BP 99/53
[2020-06-19 09:00] VITALS: BP 110/52
--- NOTE | 2020-06-19 15:26 | NUR ---
ASSUMMED CARE OF PT AT 0730, PT ALERT AND ORIENTED, PT TRANSFERS WITH MIN ASSIST GB WALKER, PT TAKING FOOD AND FLUIDS WELL, PT DOES NOT VOID, SHUNT INTACT TO LEFT UPPER EXT, BP LOW THIS AM, PHYSICIAN ADJUSTED MEDICATION DOSAGE, PT C/O PAIN IN KNEES, MEDICATED X 1 FOR PAIN, PT REPOSTIONED EVERY 2 HOURS, IV IRON ORDERED TO BE GIVEN ON DIALYSIS RUNS, PARTICIPATED IN ALL THERAPIES, HOURLY ROUNDING COMPLETED, ASSESSMENT COMPLETE, WILL CONTINUE TO MONITOR.
[2020-06-19 19:00] VITALS: BP 108/58
--- NOTE | 2020-06-20 06:58 | NUR ---
ASSUMED CARES AT 1920. ALERT AND ORIENTED. PLEASANT. DENIED ANY NEED FOR PAIN MEDS. MIN ASSIST WITH GAIT BELT AND WALKER. SLEPT MOST OF THE NIGHT. NO ISSUES OVERNIGHT. CALL LIGHT IN REACH AND BED ALARM ON.
[2020-06-20 08:00] VITALS: BP 123/56
--- NOTE | 2020-06-20 15:42 | NUR ---
ASSUMMED CARE OF PT AT 0730, PT ALERT AND ORIENTED, PT TRANSFERS WITH MIN/MOD ASSIST, GB WALKER, DENIES PAIN, DIALYSIS ACCESS IN LEFT UPPER ARM, PT TAKING FOOD AND FLUIDS WELL, UP IN CHAIR ALL SHIFT, PT ENCOURAGED TO REPOSITION IN CHAIR, MOVING THRU OUT SHIFT WITH THERAPIES, BUTTOCKS RED, PARTICIPATED IN ALL THERAPIES, HOURLY ROUNDING COMPELTED, ASSESSMENT CONPLETE, WILL CONTINUE TO MONITOR.
--- NOTE | 2020-06-20 17:44 | NUR ---
CM SPOKE TO THE PT AND HIS SPOUSE TO DISCUSS ANY QUESTIONS OR CONCERNS THAT THEY MAY HAVE FOR TOMORROWS MEETING. PT AND SPOUSE HAVE NO CONCERNS AT THIS TIME. CM AND PHYSICIAN TO F/U WITH PT AND HIS SPOUSE AFTER TOMORROWS MEETING.
[2020-06-20 20:35] VITALS: BP 90/43
[2020-06-20 22:50] VITALS: BP 102/55
--- NOTE | 2020-06-21 05:59 | NUR ---
ASSUMED CARE AT 1920. ALERT AND ORIENTED. PLEASANT. DENIED ANY NEED FOR PAIN MEDS. MIN ASSIST WITH GAIT BELT AND WALKER. ANURIA. SLEPT FOR SHORT PERIODS OFF AND ON. GOT UP X 2 TO W/C. CALL LIGHT IN REACH AND BED ALARM ON.
[2020-06-21 08:00] VITALS: BP 103/49; BP 113/49
--- NOTE | 2020-06-21 15:54 | NUR ---
ASSUMMED CARE OF PT AT 0730, PT ALERT AND ORIENTED, PT TRANSFERS WITH SBA/MIN ASSIST GB WALKER, UP IN CHAIR ALL SHIFT, PT ENCOURAGED TO REPOSITION EVERY 2 HOURS, PT DOES NOT VOID, DIALYSIS ACCESS IN LEFT UPPER ARM, BP LOW THIS AM, PHYSICIAN AWARE, TAKING FOOD AND FLUIDS WELL, DENIES PAIN, PARTICIPATED IN ALL THERAPIES, HOURLY ROUNDING COMPLETED, ASSESSMENT COMPLETE, WILL CONTINUE TO MONITOR.
[2020-06-21 20:41] VITALS: BP 109/54
[2020-06-22 08:00] VITALS: BP 104/54
--- NOTE | 2020-06-22 09:14 | NUR ---
WOUND NURSE: FOLLOWED UP WT PATIENT PERTAINING TO CONTUSION ON LEFT ELBOW. lIFTED OFF SCAB TO EXPOSE PINK SCAR TISSUE. INSPECTED SACRUM AND COCCYX AND REMAINS WITHOUT WOUND. NO FURTHER INTERVENTION PERTAINING TO WOUNDS REQUIRED.
--- NOTE | 2020-06-22 15:39 | NUR ---
TEAM CONFRENCE MEETING HELD TODAY. CM AND PHYSICIAN SPOKE TO THE PT AND HIS SPOUSE TO INFORM OF MEETING AND PLAN TO D/C PT HOME WITH HH TOMORROW. PT AND SPOUSE IN AGREEMENT WITH PLAN. CM INFORMED THAT PT WILL NEED WHEELCHAIR FOR D/C. CM INFORMED [facility] OF THE DME REFERRAL FOR WHEELCHAIR. UNSURE IF PT WILL QUALIFY FOR WHEELCHAIR AT THIS TIME. PT PROGRESSING TOWADS GOALS, BUT BARRIERS ARE LE WEAKNESS, FETIGUE, AND SAFETY AWARENESS. CM WILL REMAIN AVAILABLE TO ASSIST AND FOLLOW NEEDED.
--- NOTE | 2020-06-22 17:05 | NUR ---
PT PARICIPATED IN ALL THERAPIES. DENIES PAIN. TOLERATING PO WELL. DIALYSIS THIS PM
--- NOTE | 2020-06-22 18:45 | NUR ---
PT BACK FROM DIALYSIS.
[2020-06-23 06:00] VITALS: BP 112/52
[2020-06-23 08:00] VITALS: BP 96/46
[2020-06-23] MEDS ORDERED: PACERONE 200 M200 M1 PO (11:01)
[2020-06-23] MEDS ORDERED: CARDIZEM SR 60M60 MG PO (11:01)
[2020-06-23] MEDS ORDERED: ABILIFY10 MG PO (11:01)
[2020-06-23 11:20] VITALS: BP 96/46
[2020-06-23 13:24] VITALS: BP 96/46
--- NOTE | 2020-06-23 14:01 | NUR ---
CM SPOKE TO THE PT AND HIS SPOUSE TO DISCUSS D/C PLANNING AND PLAN TO D/C PT HOME TODAY WITH HH. PT'S SPOUSE REQUEST HH WITH [facility]. CM FAXED PT'S D/C ORDERS AND D/C SUMMARY TO [facility] AND THEY WILL CONTACT THE PT'S SPOUSE TO ARRANGE A TIME TO VISIT. CM ALSO FAXED DME ORDER AND D/C SUMMARY TO [facility] FOR LIGHT WEIGHT WHEELCHAIR. [facility] WILL CONTACT THE PT'S SPOUSE WHEN W/C IS APPROVED. CM CONTACTED [facility] TO INFORM OF THE PT'S D/C AND FAXED THE PT'S D/C SUMMARY AND FLOW SHEETS. CM WILL REMAIN AVAILABLE TO ASSIST AND FOLLOW NEEDED. [facility] PHONE: [phone] FAX: [phone] [facility] [phone] FAX: [phone]
--- NOTE | 2020-06-23 14:39 | NUR ---
ASSESSMENT COMPLETED DOCUMENTED. PATIENT UP IN W/C AT THE BEDSIDE WITH NO C/O VOICED. RESPIRATORY STATUS STABLE. AMBULATED FROM BEDSIDE TO THE BR AND HAD AN XTRA LARGE BM. 1400 DC INSTRUCTIONS GIVEN TO PATIENT, EDUCATED ON MEDICATIONS AND DOSE CHANGES, SIGNATURE OBTAINED AND UNDERSTANDING VERBALIZED. 1425 DC'D VIA W/C ACCOMPANIED BY NURSING STAFF WITH ALL PERSONAL BELONGINGS PACKED AND SENT. PICKED UP IN FAMILY VEHICLE.
[2020-06-23 14:43] VITALS: BP 96/46
== END 2020-06-23 14:25 | disposition home health service (06) | DRG 947 ==
LOC: M.REH 18:13
PROVIDERS: Family Medicine; Internal Medicine; Internal Medicine Nephrology; ADMIT Physical Medicine & Rehabilitation; ATTEND Physical Medicine & Rehabilitation
PROC: 5A1D70Z Performance of Urinary Filtration, Intermittent, Less than 6 Hours Per Day (ICD-10-PCS; principal; 2020-06-03)
PROC: 5A1D70Z Performance of Urinary Filtration, Intermittent, Less than 6 Hours Per Day (ICD-10-PCS; 2020-06-06)
PROC: 5A1D70Z Performance of Urinary Filtration, Intermittent, Less than 6 Hours Per Day (ICD-10-PCS; 2020-06-10)
PROC: 5A1D70Z Performance of Urinary Filtration, Intermittent, Less than 6 Hours Per Day (ICD-10-PCS; 2020-06-13)
DX: R53.81 Other malaise (principal); N18.6 End stage renal disease; I50.33 Acute on chronic diastolic (congestive) heart failure; I13.2 Hypertensive heart and chronic kidney disease with heart failure and with stage 5 chronic kidney disease, or end stage renal disease; N25.81 Secondary hyperparathyroidism of renal origin; I48.91 Unspecified atrial fibrillation; I25.10 Atherosclerotic heart disease of native coronary artery without angina pectoris; E87.5 Hyperkalemia; D63.1 Anemia in chronic kidney disease; F32.9 Major depressive disorder, single episode, unspecified; E11.40 Type 2 diabetes mellitus with diabetic neuropathy, unspecified; E11.44 Type 2 diabetes mellitus with diabetic amyotrophy; E11.22 Type 2 diabetes mellitus with diabetic chronic kidney disease; Z99.2 Dependence on renal dialysis; Z95.1 Presence of aortocoronary bypass graft; Z88.2 Allergy status to sulfonamides; Z88.6 Allergy status to analgesic agent; Z88.8 Allergy status to other drugs, medicaments and biological substances; Z86.73 Personal history of transient ischemic attack (TIA), and cerebral infarction without residual deficits; Z88.1 Allergy status to other antibiotic agents; Z82.49 Family history of ischemic heart disease and other diseases of the circulatory system

== ENCOUNTER 2020-06-23 17:59 | Inpatient (IN) | payer MEDICARE ==
[~2020-06-23] VITALS: Ht 172.7 cm; Wt 109.4 kg
[~2020-06-23 17:59] MED LIST changes: +ABILIFY10 MG PO; +CARDIZEM SR 60M60 MG PO; +PLAVIX 75 MG TA75 M1 PO
[2020-06-23 18:01] VITALS: BP 100/52
[2020-06-23 18:19] LABS: ABSOLUTE EOSINOPHILS 0.1 thou/uL (0.0-0.7); ABSOLUTE LYMPHOCYTES 0.8 thou/uL (0.8-5.3); ABSOLUTE MONOCYTES 0.5 thou/uL (0.0-1.2); ABSOLUTE NEUTROPHILS 4.6 thou/uL (1.6-8.1); BASOPHILS 0.4 %; EOSINOPHILS 2.4 %; HEMATOCRIT 27.3 % (42.0-52.0); HEMOGLOBIN 8.8 gm/dL (14.0-18.0); LYMPHOCYTES 12.4 %; MCH 29.8 pg (26.0-34.0); MCHC 32.4 g/dL (28.0-37.0); MCV 91.8 fL (80.0-100.0); MONOCYTES 8.4 %; MPV 7.1 fl. (7.2-11.1); NUCLEATED RBCS 0 /100WBC; PLATELET COUNT* 175 thou/uL (150-400); POLYS 76.4 %; RBC 2.97 mil/uL (4.50-6.00); RDW-CV 18.1 % (10.5-14.5); WBC 6.1 thou/uL (4.0-11.0)
[2020-06-23 18:36] LABS: CALCIUM 8.7 mg/dL (8.5-10.1); CREATININE 4.9 mg/dL (0.6-1.3); POTASSIUM 5.1 mmol/L (3.5-5.1)
[2020-06-23 18:42] LABS: ALBUMIN 3.1 g/dL (3.4-5.0); TOTAL BILIRUBIN 0.5 mg/dL (<0.1-1.0); TOTAL PROTEIN 7.4 g/dL (6.4-8.2)
[2020-06-23 23:00] VITALS: BP 132/57
[2020-06-23 23:50] VITALS: BP 102/58
[2020-06-24 08:04] VITALS: BP 104/44
[2020-06-24 13:05] VITALS: BP 103/51
[2020-06-24 16:39] VITALS: BP 93/39
[2020-06-24 20:44] VITALS: BP 104/50
[2020-06-24 22:15] VITALS: BP 103/45
[2020-06-25] VITALS: BP 110/47
[2020-06-25 07:51] VITALS: BP 116/56
--- NOTE | 2020-06-25 09:43 | CON ---
[facility] [address] [place] [address] CONSULTATION Name: JAROCHO CALZADA Room: [address] IN .R.#: [id number] Admission: 06/23/20 Attend Phys: Leah Manrique Discharge: Date of : 48 Report #: [id number] THIS REPORT FOR: //name// cc: Scout Arcos MD, Michael S. MD ~ DATE OF SERVICE: 06/24/2020 HISTORY OF PRESENT ILLNESS: The patient has end-stage renal disease. The patient is very well-known to us. He was in rehab and I saw him yesterday. He is on dialysis Friday, , and Friday schedule. He went home yesterday and then fell at home and broke his right fibula, was readmitted. MEDICAL HISTORY: Significant for: 1. End-stage renal disease. 2. Medical deconditioning. 3. Morbid obesity. 4. Coronary artery disease. 5. Hypertension. 6. Chronic atrial fibrillation. 7. Status post bypass graft surgery. 8. Right rotator cuff repair. 9. History of congestive heart failure. SOCIAL HISTORY: No tobacco or alcohol abuse. FAMILY HISTORY: Positive for hypertension. REVIEW OF SYSTEMS: Positive for pain in the right leg where he has fracture. He is also depressed. He is upset that he just went home after rehab and now got back with fracture. PHYSICAL EXAMINATION: GENERAL: He is awake, alert, and oriented, in no acute distress. VITAL SIGNS: His blood pressure is 104/44, heart rate 78, afebrile. HEENT: Pupils are round. NECK: Fatty. LUNGS: Decreased air movements. CARDIOVASCULAR: Irregular rate. ABDOMEN: Soft. EXTREMITIES: Lower extremities with some edema. LABORATORY DATA: His hemoglobin is 8.8. His creatinine is 4.9, potassium is 5.1. ASSESSMENT: 1. End[place] [address] CONSULTATION Name: JAROCHO CALZADA Room: [address]#: [id number] Admission: 06/23/20 Attend Phys: Leah Manrique Discharge: Date of : 48 Report #: [id number] 2. Hypertension. 3. Coronary artery disease. 4. Anemia. 5. Right fibular fracture. 6. Congestive heart failure. PLAN: 1. Dialysis today. 2. Follow up with orthopedic surgeon and primary team. <ELECTRONICALLY SIGNED> By: Adolph Parry MD 06/25/20 0943 [id number] 0031Atory Parry MD /nt
[2020-06-25 13:30] VITALS: BP 115/48
--- NOTE | 2020-06-25 14:02 | EKG ---
[place] [address] ELECTROCARDIOGRAM REPORT Name: STUART CALZADA Room: [address] IN [facility].#: [id number] Admission: 06/23/20 Attend Phys: Stuart Mtz Discharge: Date of : 48 Date of Service: 06/23/201813 Report #: [id number] THIS REPORT FOR: //name// [facility] ED Test Date: 2020-06-23 Test Time: 18:14:01 Pat Name: STUART CALZADA Department: Room: [facility] Gender: M [employer] Operations: : 1950 Requested By: Andrzej Jiménez Order Number: [id number] MD: Scout Llanos Measurements Intervals Rolla Rate: 82 P: VT: QRS: 98 QRSD: 123 T: -44 QT: 397 QTc: 464 Interpretive Statements Sinus rhythm Borderline nonspecific intraventricular conduction delay Borderline T abnormalities, inferior leads Compared to ECG 05/29/2020 11:45:12 Borderline intraventricular conduction delay now present T-wave abnormality now present Right-axis deviation no longer present Prolonged QT interval no longer present Electronically Signed On 06-25-2020 14:02:25 OIL PIT ATTENDANT by Scout Llanos [email or web address] <ELECTRONICALLY SIGNED> By: Scout Llanos MD, FACC 06/25/20 1402 13 181 Scout Llanos MD, FACC /EPI
[2020-06-25 16:00] VITALS: BP 87/44
[2020-06-25 20:00] VITALS: BP 98/49
[2020-06-25 23:40] VITALS: BP 93/46
[2020-06-26 04:41] LABS: HEMATOCRIT 24.2 % (42.0-52.0); HEMOGLOBIN 8.2 gm/dL (14.0-18.0); MCH 30.9 pg (26.0-34.0); MCHC 33.7 g/dL (28.0-37.0); MCV 91.8 fL (80.0-100.0); RBC 2.64 mil/uL (4.50-6.00); RDW-CV 17.8 % (10.5-14.5); WBC 5.1 thou/uL (4.0-11.0)
[2020-06-26 05:04] LABS: CREATININE 5.4 mg/dL (0.6-1.3); MAGNESIUM 2.1 mg/dL (1.8-2.4); POTASSIUM 4.9 mmol/L (3.5-5.1)
[2020-06-26 08:00] VITALS: BP 99/50
[2020-06-26] MEDS ORDERED: HYDROXYZINE PAM50 MG PO (08:39)
[2020-06-26 14:00] VITALS: BP 100/56
[2020-06-26 20:00] VITALS: BP 115/56
[2020-06-27] VITALS: BP 87/41
[2020-06-27 08:00] VITALS: BP 91/41
[2020-06-27 20:34] VITALS: BP 107/49
[2020-06-27 23:40] VITALS: BP 106/43
[2020-06-28 08:00] VITALS: BP 116/57
[2020-06-28 17:33] VITALS: BP 123/55
== END 2020-06-28 18:35 | DRG 562 ==
LOC: M.ERS 17:59 → M.2W 19:15 → M.TBA-ER 19:15 → M.2W 23:30
PROVIDERS: Internal Medicine; Physician Assistant; ADMIT Internal Medicine; ATTEND Internal Medicine
PROC: 2W3LX1Z Immobilization of Right Lower Extremity using Splint (ICD-10-PCS; principal; 2020-06-24)
PROC: 5A1D70Z Performance of Urinary Filtration, Intermittent, Less than 6 Hours Per Day (ICD-10-PCS; 2020-06-24)
PROC: 5A1D70Z Performance of Urinary Filtration, Intermittent, Less than 6 Hours Per Day (ICD-10-PCS; 2020-06-27)
DX: S82.831A Other fracture of upper and lower end of right fibula, initial encounter for closed fracture (principal); J96.01 Acute respiratory failure with hypoxia; N18.6 End stage renal disease; J18.9 Pneumonia, unspecified organism; E43 Unspecified severe protein-calorie malnutrition; I48.20 Chronic atrial fibrillation, unspecified; I13.2 Hypertensive heart and chronic kidney disease with heart failure and with stage 5 chronic kidney disease, or end stage renal disease; I50.32 Chronic diastolic (congestive) heart failure; I47.1 Supraventricular tachycardia; I25.10 Atherosclerotic heart disease of native coronary artery without angina pectoris; F44.4 Conversion disorder with motor symptom or deficit; F32.9 Major depressive disorder, single episode, unspecified; F41.1 Generalized anxiety disorder; I27.20 Pulmonary hypertension, unspecified; D63.1 Anemia in chronic kidney disease; G31.84 Mild cognitive impairment of uncertain or unknown etiology; W18.39XA Other fall on same level, initial encounter; E11.22 Type 2 diabetes mellitus with diabetic chronic kidney disease; Z20.828 Contact with and (suspected) exposure to other viral communicable diseases; Z99.2 Dependence on renal dialysis; Z95.1 Presence of aortocoronary bypass graft; Z86.73 Personal history of transient ischemic attack (TIA), and cerebral infarction without residual deficits; Z79.01 Long term (current) use of anticoagulants; Z79.899 Other long term (current) drug therapy; Z88.8 Allergy status to other drugs, medicaments and biological substances; Z68.36 Body mass index [BMI] 36.0-36.9, adult; Z88.2 Allergy status to sulfonamides; Y93.89 Activity, other specified; Y92.098 Other place in other non-institutional residence as the place of occurrence of the external cause; Y99.8 Other external cause status

== ENCOUNTER 2020-06-28 17:10 | Inpatient (IN) | payer MEDICARE ==
[~2020-06-28] VITALS: Ht 172.7 cm; Wt 98.4 kg
[~2020-06-28 17:10] MED LIST changes: +HYDROXYZINE PAM50 MG PO
[2020-06-28 19:00] VITALS: BP 117/46
[2020-06-29 04:37] LABS: HEMATOCRIT 24.2 % (42.0-52.0); HEMOGLOBIN 7.7 gm/dL (14.0-18.0); MCH 29.5 pg (26.0-34.0); MCHC 31.9 g/dL (28.0-37.0); MCV 92.7 fL (80.0-100.0); MPV 6.2 fl. (7.2-11.1); RBC 2.61 mil/uL (4.50-6.00); RDW-CV 18.5 % (10.5-14.5); WBC 3.9 thou/uL (4.0-11.0)
--- NOTE | 2020-06-29 04:39 | NUR ---
ASSUMED PT CARE AT 1930. PT HAD ARRIVED TO FLOOR FROM TELEMETRY JUST PRIOR TO SHIFT CHANGE. PT DROWSY UPON ASSESSMENT, POLITE AND COOPERATIVE WITH CARES. DENIES PAIN. PT ABLE TO ANSWER SOME ADMISSION QUESTIONS BUT UNABLE TO MAINTAIN FOCUS. PT ARRIVED WITHOUT HIS GLASSES OR CELLPHONE, TELEMETRY UNABLE TO FIND EITHER ONE, AND PT NOT A RELIABLE HISTORIAN REGARDING WHETHER HE HAD THOSE ITEMS ON TELEMETRY OR NOT. PT UNABLE TO SIGN ALL THE ADMISSION PAPERWORK. PT SLEPT ALL NIGHT, NO S/S PAIN OR DISTRESS. CALL LIGHT IN REACH, BED ALARM ON FOR SAFETY. HOURLY ROUNDING IN PROGRESS, WILL CONTINUE TO MONITOR.
[2020-06-29 05:05] LABS: CALCIUM 8.5 mg/dL (8.5-10.1); CREATININE 5.7 mg/dL (0.6-1.3); POTASSIUM 4.6 mmol/L (3.5-5.1)
[2020-06-29 08:00] VITALS: BP 107/57
--- NOTE | 2020-06-29 18:35 | NUR ---
ASSESSMENT COMPLETED DOCUMENTED THIS MORNING. PATIENT CONTINUES TO BE LETHARGIC BUT AROUSES EASILY AND ANSWERS QUESTIONS APPROPRIATELY. ASSISTED TO CHAIR WITH BRIGITTE LIFT AND IS VERY SLOW TO WORK WITH THERAPY. SPEECH THERAPY NOTIFIED NURSING OF CHANGES IN HIS THERAPY WORKSHEETS FROM A COUPLE OF DAYS AGO ALONG WITH PATIENT'S C/O VISUAL DISTURBANCE AND DECLINE. YOU CALL MD TO DR. ARGUELLO WITH CONCERNS.....WHEN HE MADE ROUNDS ORDERS WERE REC'D TO CONSULT NEURO, AND CHANGE HYDROCODONE TO PRN INSTEAD OF ROUTINE.
[2020-06-29 20:09] VITALS: BP 106/52
--- NOTE | 2020-06-30 05:05 | NUR ---
ASSUMED PT CARE AT 1930. PT ALERT AND ORIENTED, POLITE AND COOPERATIVE WITH CARES. MORE TALKATIVE THAN PREVIOUS NIGHT, FEELS BETTER AFTER DIALYSIS. DENIES PAIN. TURNED Q2. WORE PRAFO BOOT ALL NIGHT ON RIGHT FOOT. USES CALL LIGHT APPROPRIATELY. CALL LIGHT IN REACH, BED ALARM ON FOR SAFETY. HOURLY ROUNDING IN PROGRESS, WILL CONTINUE TO MONITOR.
[2020-06-30 08:00] VITALS: BP 107/50
--- NOTE | 2020-06-30 15:01 | NUR ---
INITIAL ASSESSMENT: PATIENT ADMITTED TO THE INPT REHAB UNIT ON 06/28/20 WITH A DIAGNOSIS OF ENCEPHALOPATHY. PT RECENTLY D/C'S FROM THE INPT REHAB UNIT. PT ALERT, BUT FORGETFUL. PT RESIDES AT HOME WITH SPOUSE AND SHE ASSIST THE PT WITH CARES NEEDED, AND PROVIDES TRANSPORTATION. PT USES A WALKER FOR MOBILITY. REFERRAL SENT TO [facility] FOR [facility]. HOWEVER THEY WERE NOT ABLE TO SEE THE PT HE HAD RETURN TO THE HOSPITAL BEFORE [facility] WAS ABLE TO SEE THE PT. PT CURRENT WITH [facility] CM REORIENTED PT AND SPOUSE TO THE REHAB UNIT AND PROCESSES, TEAM CONFRENCE MEETING, RESIDENTS RIGHTS INFO, AND ROLE OF CM. CM WILL REMAIN AVAILABLE TO ASSIST AND FOLLOW NEEDED. [facility] PHONE: [phone] FAX: [phone]
--- NOTE | 2020-06-30 16:11 | NUR ---
WOUND NURSE: PLANNED ON ASSESSING PATIENT PERTAINING TO SACRAL-COCCYGEAL BLISTERS, BUT PATIENT IS RECEIVING A PROCEDURE AND CANNOT BE DISTURBED. REVIEWED THE PHOTOS TAKEN AND RECOMMEND THE FOLLOWING: CLEANSE WITH SOAP AND WATER, RINSE, PAT DRY. MAY OPTIONALLY CLEANSE WITH WOUND CLEANSER OR NORMAL SALINE AND GAUZE. APPLY SKIN PREP TO INTACT PERIWOUND TISSUE. APPLY AQUACEL AG (CUT TO FIT) UNDER EXUDERM LP (CUT TO FIT), THEN SECURE WITH SURESITE TRANSPARENT DRESSING. CHANGE DRESSING EVERY 3 DAYS AND PRN.
[2020-06-30 16:39] LABS: HEMATOCRIT 26.5 % (42.0-52.0); HEMOGLOBIN 8.6 gm/dL (14.0-18.0); MCH 30.1 pg (26.0-34.0); MCHC 32.3 g/dL (28.0-37.0); MCV 93.1 fL (80.0-100.0); MPV 6.2 fl. (7.2-11.1); RBC 2.85 mil/uL (4.50-6.00); RDW-CV 18.5 % (10.5-14.5); WBC 4.4 thou/uL (4.0-11.0)
[2020-06-30 16:55] LABS: CALCIUM 8.8 mg/dL (8.5-10.1); CREATININE 4.8 mg/dL (0.6-1.3); POTASSIUM 4.2 mmol/L (3.5-5.1)
--- NOTE | 2020-06-30 18:58 | NUR ---
ALERT AND ORIENTED X4. UP WITH 2 ASSIST AND BRIGITTE LIFT. DENIES NEED FOR PAIN MEDICATION. DR AND WOUND NURSE NOTIFIED OF BLISTERS ON COCCYX. NEW ORDER NOTED AND DRESSING APPLIED. PATIENT DOES NOT VOID. MOM GIVEN FOR CONSTIPATION. SPECIALTY BED ORDERED. USES CALL LIGHT WITHIN REACH. REPOSITIONED FREQUENTLY THROUGHOUT DAY. FALL PRECATIONS IN PLACE.
[2020-06-30 20:05] VITALS: BP 108/44
--- NOTE | 2020-07-01 05:14 | NUR ---
ASSUMED PT CARE AT 1930. PT ALERT AND ORIENTED X4, POLITE AND COOPERATIVE WITH CARES. DRESSING TO COCCYX C/D/I. PT TURNED Q2. PRAFO BOOT TO RIGHT FOOT. ON 3L 02 PER NC. PT TEARFUL, WANTING TO GO HOME. PT TO HAVE DIALYSIS TODAY. USES CALL LIGHT APPROPRIATELY. CALL LIGHT IN REACH, BED ALARM ON FOR SAFETY. HOURLY ROUNDING IN PROGRESS, WILL CONTINUE TO MONITOR.
[2020-07-01 07:30] VITALS: BP 116/55
--- NOTE | 2020-07-01 17:56 | NUR ---
ASSUMMED CARE OF PT AT 0730, PT ALERT, FORGETFUL, ANSWERS QUESTIONS BUT DOES NOT OFFER CONVERSATION, FALLS ASLEEP IF NOT STIMULATED, TRANSFERS PER BRIGITTE LIFT, UP IN CHAIR, CAM BOOT ON RIGHT LEG AT INTERVALS, REMOVED WHEN IN BED FOR SHORT INTERVALS, HEEL ELEVATED, PT REPOSTIONED EVERY 2 HOURS, DRESSING TO SACRAL AREA INTACT, APETITE DECREASED, ENCOURAGED TO TAKE FOOD AND FLUIDS, DIALYSIS SHUNT IN LEFT UPPER EXTREMITY, TO DIALYSIS THIS PM, HOURLY ROUNDING COMPLETED, ASSESSMENT COMPLETE, WILL CONTINUE TO MONITOR.
[2020-07-01 20:00] VITALS: BP 123/66
--- NOTE | 2020-07-01 20:20 | NUR ---
RESTING QUIETLY IN BE AND WATCHING TV. 02 NASAL CANNULA AT 3 LITERS. CALL LIGHT WITHIN REACH.
--- NOTE | 2020-07-02 04:50 | NUR ---
RESTED ON/OFF. ASSISTED WITH REPOSITIONING. DRESSING ON BUTTOCK DRY/INTACT. HOURLY ROUNDING IN PROGRESS.
[2020-07-02 08:17] VITALS: BP 121/64
[2020-07-02 20:00] VITALS: BP 135/65
--- NOTE | 2020-07-02 20:08 | NUR ---
care provided from 0700 until 1900. pt has remained alert, oriented and cooperative. no c/o pain or distress. pt up to wheelchair using lift. when out of bed pt has black cam boot in place. when returned to bed pt has this device removed and off loading boot applied. pt has tolerated these devices without c/o pain or distress. appetite has been poor. pt has only consumed 50-25% of meals. 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
--- NOTE | 2020-07-02 20:40 | NUR ---
SITTING UP IN BED WATCHING TV. 02 NASAL CANNULA AT 3 LITERS. DENIES DISCOMFORT. GAVE MILK OF MAGNESIA. STILL DOESN'T WANT A SUPPOSITORY. CALL LIGHT WITHIN REACH.
--- NOTE | 2020-07-03 05:40 | NUR ---
RESTED QUIETLY. HOURLY ROUNDING IN PROGRESS.
[2020-07-03 08:00] VITALS: BP 105/49
--- NOTE | 2020-07-03 16:20 | NUR ---
ALERT AND ORIENTED X4. UP WITH BRIGITTE LIFT AND 2 ASSIST. DENIES NEED FOR PAIN MEDICATION. WEARS BOOT ON OVER RIGHT HEEL WHILE IN BED. DRESSING CHANGED TO BLISTERS ON COCCYX. PATIENT REPOSITIONED SEVERAL TIMES THROUGHOUT DAY. FAMILY AT BEDSIDE. REMAINS ON O2 SAT 3L/NC. HAD SMALL BOWEL MOVEMENT TODAY. CALL LIGHT WITHIN REACH. FALL PRECAUTIONS IN PLACE. BED ALARM AND CHAIR ALARM USED.
--- NOTE | 2020-07-03 18:29 | NUR ---
APPETITE POOR. REFUSED SUPPER AND NEPHRO DRINK.
[2020-07-03 19:00] VITALS: BP 108/40
--- NOTE | 2020-07-03 20:35 | NUR ---
RESTING QUIETLY IN BED. DENIES DISCOMFORT. TOOK MEDICATIONS WHOLE ALL AT ONCE WITH WATER. SET PATIENT UP WITH PIECE OF PUMPKIN PIE THAT WAS AT BEDSIDE. CALL LIGHT WITHIN REACH.
--- NOTE | 2020-07-04 05:31 | NUR ---
RESTED QUIETLY WITH 02 NASAL CANNULA AT 3 LITERS. ASSISTED WITH REPOSITIONING EVERY TWO HOURS. HOURLY ROUNDING IN PROGRESS.
[2020-07-04 07:45] VITALS: BP 116/67
--- NOTE | 2020-07-04 10:42 | NUR ---
WOUND NURSE: PATIENT SEEN FOR FOLLOW UP ASSESSMENT PERTAINING TO BUTTOCK LESIONS. CURRENTLY PRESENTS WITH SHALLOW EROSIONS BUTY WITH ABRAIDED SKIN NOTED WITH REMOVAL OF THIS DRESSING, NAMELY ON TE LEFT BUTTOCK AREA. AFFECTED AREA IS A 9.0 X 9.0 CM. AREA CONTAINING 3 OPEN AREAS WITH RED, NONGRANULATING TISSUE. MODERATE AMOUNT OF SANGUINOUS DRAINAGE WAS PRESENT. CLEANSED WITH SOAP AND WATER, RINSED WTIH WATER, THEN PATTED DRY. OPTED TO HOLD DRESSING AND PROTECT EXCORIAGED SKIN USING Z-GUARD MOISTURE BARRIER PASTE. WILL PLAN TO FOLLOW UP FOR PROGRESS IN 2 TO 3 DAYS. PATIENT IS ON A TURN SCHEDULE AND ON A LOW AIRLOSS MATTRESS.
--- NOTE | 2020-07-04 14:44 | NUR ---
ALERT AND ORIENTED X4. UP WITH BRIGITTE LIFT AND 2 ASSIST. DENIES NEED FOR PAIN MEDICATION. DRESSING CHANGED TO COCCYX WOUND BY WOUND NURSE. NEW TOPICAL WOUND NOTED AND NEW ORDERS NOTED. PATIENT REPOSITIONED THROUGHOUT DAY. WEARS BOOT ON RIGHT FOOT AT ALL TIMES. PATIENT ENCOURAGED TO EAT, APPETITE POOR. NOTIFIED. IN DIALYSIS AT THIS TIME. USES CALL LIGHT WITHIN REACH. FALL PRECAUTIONS IN PLACE. BED ALARM AND CHAIR ALARM USED.
--- NOTE | 2020-07-04 14:57 | NUR ---
CM SPOKE TO THE PT AND HIS SPOUSE TO DISCUSS ANY QUESTIONS OR CONCERNS THAT THEY MAY HAVE FOR TOMORROW'S TEAM CONFRENCE MEETING. PT HAS NO QUESTIONS OR CONCERNS AT THIS TIME. PT'S SPOUSE INFORMS THAT SHE HAS QUESITONS ABOUT PT'S 'DECLINE. HE SEEMS DETACHED. I JUST WANT TO KNOW WHAT'S WRONG WITH HIM'. CM WILL REMAIN AVAILABLE TO ASSIST AND FOLLOW NEEDED.
[2020-07-04 19:00] VITALS: BP 98/49
--- NOTE | 2020-07-05 02:14 | NUR ---
ASSUMED CARE FROM DAY SHIFT PT RESTING IN BED , ORIENTATION QUESTIONABLE, TURN EVERY 2 HOURS TOLERATED WELL , LOOSE BROWN STOOL NOTED, RESTNG WELL THROUHGOUT HOURLY ROUNDING, WILL CONINTINUE WITH CURRENTPLAN OF CARE.
[2020-07-05 07:45] VITALS: BP 137/67
[2020-07-05 13:58] LABS: ABSOLUTE BASOPHILS 0.1 thou/uL (0.0-0.2); ABSOLUTE EOSINOPHILS 0.1 thou/uL (0.0-0.7); ABSOLUTE LYMPHOCYTES 0.8 thou/uL (0.8-5.3); ABSOLUTE MONOCYTES 0.7 thou/uL (0.0-1.2); ABSOLUTE NEUTROPHILS 3.1 thou/uL (1.6-8.1); BASOPHILS 1.8 %; EOSINOPHILS 2.6 %; HEMATOCRIT 32.4 % (42.0-52.0); HEMOGLOBIN 10.2 gm/dL (14.0-18.0); LYMPHOCYTES 16.6 %; MCH 29.3 pg (26.0-34.0); MCHC 31.5 g/dL (28.0-37.0); MONOCYTES 14.2 %; MPV 6.3 fl. (7.2-11.1); NUCLEATED RBCS 0 /100WBC; PLATELET COUNT* 235 thou/uL (150-400); POLYS 64.8 %; RBC 3.49 mil/uL (4.50-6.00); RDW-CV 17.9 % (10.5-14.5); WBC 4.7 thou/uL (4.0-11.0)
[2020-07-05 14:31] LABS: ALBUMIN 3.3 g/dL (3.4-5.0); CALCIUM 9.5 mg/dL (8.5-10.1); CREATININE 5.4 mg/dL (0.6-1.3); MAGNESIUM 2.4 mg/dL (1.8-2.4); POTASSIUM 4.2 mmol/L (3.5-5.1); TOTAL BILIRUBIN 0.6 mg/dL (<0.1-1.0); TOTAL PROTEIN 8.1 g/dL (6.4-8.2)
--- NOTE | 2020-07-05 16:55 | NUR ---
UP WITH BRIGITTE LIFT AND 2 ASSIST. DEIES PAIN. HAS DIALYSIS SITE LEFT UPPER ARM. BOOT ON RIGHT FOOT WHILE IN BED. REPOSITIONED FREQUENTLY THROUGHOUT DAY AT LEAST EVERY 2 HOURS. REMAINS ON SPECIALTY BED. Z ROSIBEL CREAM APPLIED TO COCCYX AREA SEVERAL TIMES TODAY. REMAINS ON O2 AT 3L/NC TO KEEP O2 SATS GREATER THAN 90%. ALERT AND ORIENTED X4. ON MEGACE FOR POOR APPETITE. FALL PRECAUTIONS IN PLACE. BED ALARM AND CHAIR ALARM USED.
[2020-07-05 20:00] VITALS: BP 100/41
--- NOTE | 2020-07-05 20:30 | NUR ---
AWAKENED FOR REASSESSMENT AND MEDICATION PASS. GAVE ONE TYLENOL PER PATIENT'S REQUEST FOR COMPLAINT OF LOW BACK PAIN RATED "3". TOOK MEDICATIONS WHOLE A FEW AT A TIME WITH WATER. HAS HELIX BOOT TO RIGHT HEEL FOR PROTECTION. CALL LIGHT WITHIN REACH. 02 NASAL CANNULA AT THREE LITERS.
--- NOTE | 2020-07-06 06:58 | NUR ---
ASSISTED WITH REPOSITIOINING THROUGHOUT THE NIGHT. NO FURTHER COMPLAINT OF PAIN. HOURLY ROUNDING IN PROGRESS.
[2020-07-06 08:00] VITALS: BP 124/46
--- NOTE | 2020-07-06 09:18 | NUR ---
WOUND NURSE: PATIENT SEEN FOR FOLLOW UP ASSESSMENT PERTAINING TO SACRAL AND BUTTOCK WOUNDS. PRESENTS WITH RUPTURED BULLAE, NO ACTIVE BLEEDING NOTED, MINOR SEROUSANGUINOUS DRAIANGE PRESENT, LOCALIZED REDNESS. PATIENT INCONTINENT OF LOOSE STOOL. CLEANSED WITH SOAP AND WATER, RINSED, WITH WATER, THEN PATTED DRY. APPLIED Z-GUARD MOISTURE BARRIER PASTE TO AFFECTED AREA. PATIENT ON A LOW AIRLOSS MATTRESS WHICH WAS NOT TURNED ON -- TURNED MATTRESS ON AND PIT TANNER PLACING SIGNAGE NOT TO TURN OFF. PATIENT IS ON TURN SCHEDULE.
--- NOTE | 2020-07-06 11:56 | NUR ---
TEAM CONFRENCE MEETING HELD YESTERDAY. PT AND SPOUSE INFORMED OF MEETING AND MARI TO RE-TEAM AND HAVE PT REMAIN ON THE UNIT FOR ANOTHER WEEK AND CONTINUE THERAPIES. PT AND SPOUSE IN AGREEMENT WITH PLAN. CM WILL REMAIN AVAILABLE TO ASSIST AND FOLLOW NEEDED.
--- NOTE | 2020-07-06 15:42 | NUR ---
ASSUMMED CARE OF PT AT 0730, PT ALERT, FORGETFUL, TRANSFERS PER BRIGITTE LIFT, DENIES PAIN, NEEDS ENCOURAGEMENT TO EAT AND DRINK, BUT DID IT WELL FOR LUNCH, TAKES FLUIDS WHEN OFFERED, WOUND NURSE ASSESSED ALL WOUNDS, ZINC GUARD APPLIED TO BUTTOCKS AT INTERVALS DURING SHIFT, SMALL INCONTINENT STOOL, RIGHT HEEL IN BOOT FOR THERAPY AND THEN IN PRESSURE RELIEF BRACE WHEN IN BED, O2 ON AT 3L, NO URINE OUTPUT, PT HAS DIALYSIS THIS PM, PT REPOSTIONED EVERY 2 HOURS, ON AIR LOSS MATTRESS, PARTICIPATED IN ALL THERAPIES, HOURLY ROUNDING COMPLETED, ASSESSMENT COMPLETE, WILL CONTINUE TO MONITOR.
[2020-07-06 20:00] VITALS: BP 101/65
--- NOTE | 2020-07-07 04:23 | NUR ---
ASSUMED PT CARE AT 1930. PT SLEEPING BUT AWAKES FOR ASSESSMENT. PT ORIENTED TO SELF, FORGETFUL BUT COOPERATIVE WITH CARES. INCONTINENT OF STOOL X2, PERICARE GIVEN AND ZINC GUARD APPLIED TO BUTTOCKS. PT TURNED Q2. RIGHT HEEL IN PRESSURE RELIEF BRACE WHEN IN BED. ON 3L O2 PER NC. PT HAD DIALYSIS ON DAY SHIFT, VSS UPON ASSESSMENT. CALL LIGHT IN REACH, BED ALARM ON FOR SAFETY. HOURLY ROUNDING IN PROGRESS, WILL CONTINUE TO MONITOR.
[2020-07-07 08:00] VITALS: BP 130/64
[2020-07-07 10:40] LABS: ABSOLUTE BASOPHILS 0.1 thou/uL (0.0-0.2); ABSOLUTE EOSINOPHILS 0.2 thou/uL (0.0-0.7); ABSOLUTE LYMPHOCYTES 0.7 thou/uL (0.8-5.3); ABSOLUTE MONOCYTES 0.7 thou/uL (0.0-1.2); ABSOLUTE NEUTROPHILS 3.7 thou/uL (1.6-8.1); BASOPHILS 1.2 %; HEMATOCRIT 32.6 % (42.0-52.0); HEMOGLOBIN 10.4 gm/dL (14.0-18.0); LYMPHOCYTES 13.1 %; MCH 29.3 pg (26.0-34.0); MCV 91.4 fL (80.0-100.0); MONOCYTES 13.2 %; MPV 6.6 fl. (7.2-11.1); NUCLEATED RBCS 0 /100WBC; PLATELET COUNT* 260 thou/uL (150-400); POLYS 69.5 %; RBC 3.56 mil/uL (4.50-6.00); RDW-CV 18.1 % (10.5-14.5); WBC 5.3 thou/uL (4.0-11.0)
[2020-07-07 11:14] LABS: ALBUMIN 3.1 g/dL (3.4-5.0); CALCIUM 9.2 mg/dL (8.5-10.1); CREATININE 5.1 mg/dL (0.6-1.3); TOTAL BILIRUBIN 0.6 mg/dL (<0.1-1.0); TOTAL PROTEIN 7.8 g/dL (6.4-8.2)
--- NOTE | 2020-07-07 15:17 | NUR ---
ASSUMMED CARE OF PT AT 0730, PT ALERT, FORGETFUL, TRANSFERS WITH BRIGITTE LIFT, REPOSTIONED EVERY 2 HOURS AND Z GUARD APPLED TO BUTTOCKS WITH TURNS, APETITE IMPROVING, EATING APPROX 75% OF TRAY,TAKES FLUIDS WHEN OFFERED, INCONTINENT OF STOOL X 1, O2 ON AT 3L PER NC, SATS OF 100%, DIALYSIS SHUNT INTACT LEFT UPPER ARM, CAM BOOT ON RIGHT LEG WHEN WORKING WITH THERAPY, OTHERWISE PRAFO BOOT ON SO HEEL OFF LOADED, PARTICIPATED IN ALL THERAPIES, HOURLY ROUNDING COMPLETED, ASSESSMENT COMPLETE, WILL CONTINUE TO MONITOR.
[2020-07-07 20:00] VITALS: BP 115/58
--- NOTE | 2020-07-08 04:13 | NUR ---
ASSUMED PT CARE AT 1930. PT DOZING AT SHIFT CHANGE, AWAKES FOR ASSESSMENT. POLITE AND COOPERATIVE WITH CARES. PT RESPONDS APPROPRIATELY TO QUESTIONS. TAKES PILLS WHOLE WITH WATER ALL AT ONCE. PT TURNED Q2, Z GUARD APPLIED TO BUTTOCKS WITH TURNS. PT INCONTINENT OF STOOL X3, PERICARE PROVIDED, MORE Z GUARD APPLIED. PT ON 2L 02 PER NC, SATS 100%. DIALYSIS SHUNT INTACT TO LEFT UPPER ARM. SLEPT IN PRAFO BOOT TO KEEP RIGHT HEEL OFF LOADED. CALL LIGHT IN REACH, BED ALARM ON FOR SAFETY. HOURLY ROUNDING IN PROGRESS, WILL CONTINUE TO MONITOR.
[2020-07-08 08:15] VITALS: BP 130/76
--- NOTE | 2020-07-08 16:06 | NUR ---
ALERT AND ORIENTED X4. DROWSY AT TIMES. CURRENTLY GETTING DIALYSIS. NO URINE THIS SHIFT. INCONTINENT OF BOWELS. Z ROSIBEL APPLIED TO OPEN AREAS ON BUTTOCKS. HEEL BOOT REMAINS IN PLACE OVER DARK PURPLE AREA RIGHT FOOT. REPOSITIONED AT LEAST EVERY 2 HOURS. PILLOW UNDER LEFT LEG/HEEL. USES CALL LIGHT FOR ASSIST. FALL PRECAUTIONS IN PLACE. BED ALARM AND CHAIR ALARM USED.
[2020-07-08 20:00] VITALS: BP 105/58
--- NOTE | 2020-07-09 05:06 | NUR ---
ASSUMED PT CARE AT 1930. PT DROWSY AT SHIFT CHANGE BUT APPROPRIATE WITH ASSESSMENT. POLITE AND COOPERATIVE WITH CARES. TAKES PILLS WHOLE ALL AT ONCE WITH WATER. PT TURNED Q2, Z GUARD APPLIED TO BUTTOCKS WITH TURNS. PT INCONTINENT OF STOOL X2, PERICARE PROVIDED AND MORE Z GUARD APPLIED. PT ON 2L 02 PER NC, SATS 100%. DIALYSIS SHUNT INTACT TO LEFT UPPER ARM. SLEPT IN PRAFO BOOT TO KEEP RIGHT HEEL OFF LOADED. CALL LIGHT IN REACH, BED ALARM ON FOR SAFETY. HOURLY ROUNDING IN PROGRESS, WILL CONTINUE TO MONITOR.
[2020-07-09 08:00] VITALS: BP 114/68
[2020-07-09 14:12] LABS: ABSOLUTE BASOPHILS 0.1 thou/uL (0.0-0.2); ABSOLUTE EOSINOPHILS 0.1 thou/uL (0.0-0.7); ABSOLUTE LYMPHOCYTES 0.8 thou/uL (0.8-5.3); ABSOLUTE MONOCYTES 0.6 thou/uL (0.0-1.2); ABSOLUTE NEUTROPHILS 4.2 thou/uL (1.6-8.1); BASOPHILS 1.7 %; EOSINOPHILS 1.2 %; HEMATOCRIT 35.5 % (42.0-52.0); HEMOGLOBIN 11.2 gm/dL (14.0-18.0); LYMPHOCYTES 13.4 %; MCH 29.3 pg (26.0-34.0); MCHC 31.5 g/dL (28.0-37.0); MONOCYTES 10.9 %; MPV 6.7 fl. (7.2-11.1); NUCLEATED RBCS 0 /100WBC; PLATELET COUNT* 265 thou/uL (150-400); POLYS 72.8 %; RBC 3.81 mil/uL (4.50-6.00); RDW-CV 18.4 % (10.5-14.5); WBC 5.8 thou/uL (4.0-11.0)
[2020-07-09 14:21] LABS: ALBUMIN 3.3 g/dL (3.4-5.0); CALCIUM 10.1 mg/dL (8.5-10.1); CREATININE 5.2 mg/dL (0.6-1.3); POTASSIUM 4.2 mmol/L (3.5-5.1); TOTAL BILIRUBIN 0.6 mg/dL (<0.1-1.0); TOTAL PROTEIN 8.1 g/dL (6.4-8.2)
--- NOTE | 2020-07-09 15:38 | NUR ---
ALERT AND ORIENTED X4. DROWSY AT TIMES. UP WITH BRIGITTE LIFT AND 2 ASSIST. NO C/O PAIN TODAY. REPOSITIONED OR TURNED AT LEAST EVERY 2 HOURS. Z ROSIBEL CREAM APPLIED TO OPEN AREAS ON BUTTOCKS. WAS INCONTINENT OF LOOSE STOOL X3 TODAY BUT NO URINE. DIALYSIS PATIENT. REMAINS ON O2 AT 2L/NC TO KEEP O2 SATS GREATER THAN 90%. BOOT REMAINS IN PLACE OF RIGHT FOOT. CALL LIGHT WITHIN REACH. FALL PRECAUTIONS IN PLACE. BED ALARM AND CHAIR ALARM USED
[2020-07-09 20:00] VITALS: BP 117/67
--- NOTE | 2020-07-10 00:43 | NUR ---
ASSUMED CARE AT 1930. PATIENT RESTING IN BED. TAKES PILLS WHOLE WITH WATER. ASSISTED WITH TURNS. INCONTINENT OF STOOL, VANESSA SPRAY LIBERALLY APPLIED TO ASSIST WITH REMOVAL OF STOOL. SKIN CARE DONE. Z GUARD APPLIED LIBERALLY. TURNED ON SIDE. STATES DIDN'T WANT TO MOVE AT [place] DESPITE EDUCATION BECAUSE HE WAS COMFORTABLE. IS ON HIS SIDE. HAS HARD OFFLOADING BRACE TO RT FOOT, RT HEEL PURPLE. LT ANKLE/FOOT PROTECTED FROM BRACE WITH PILLOWS BETWEEN FEET. O2 2L/NC. WATCHED [employer] GAME. BED ALARM ON. CALL LITE IN REACH. HOURLY ROUNDS CONTINUE.
--- NOTE | 2020-07-10 05:34 | NUR ---
SLEPT OFF AND ON THROUGH THE NIGHT. STARTED ASKING HOW MUCH LONGER UNTIL HE COULD GET DRESSED AROUND 0200, REINFORCED REHAB EXPECTATIONS. INCONTINENT OF STOOL AGAIN, SKIN CARE DONE, Z GUARD APPLIED LIBERALLY. WATCHING TV, HAS PERSONAL PHONE NEARBY. HAS NOT VOIDED, BUT IS ON HEMODIALYSIS. HEEL OFFLOADING BRACE ON ALL SHIFT. OTHER LEG PROTECTED WITH PILLOWS. NO C/O PAIN. BED ALARM ON. CALL LITE IN REACH. HOURLY ROUNDS CONTINUE.
[2020-07-10 06:27] VITALS: BP 121/69
[2020-07-10 08:00] VITALS: BP 100/53
--- NOTE | 2020-07-10 09:48 | NUR ---
WOUND NURSE: PATIENT SEEN FOR FOLLOW UP ASSESSMENT PERTAINING TO SACROCOCCYGEAL STAGE 2 PRESSURE INJURY. PATIENT INCONTINENT OF STOOL AND NURSE REPORTS DIFFICULT TO KEEP WOUND CLEAN AND FREE OF FECES. CURRENTLY IMPROVED FROM LAST ASSESSMENT MINIMAL SEROUSANGUINOUS DRAINAGE WITH DRESSING CHANGE. PINK AND RED MOIST SHALLOW WOUND BED. WOUND IS IRREGULAR IN SHAPE. CLEANSED WITH SOAP AND WATER, RINSED, THEN PATTED DRY. APPLIED SKIN PREP TO INTACT PERIWOUND TISSUE, THEN APPLIED AQUACEL AG AND SECURED IN PLACE WITH SURESITE TRANSPARENT DRESSING. PLAN TO CHANGE DRESSING EVERY 3 DAYS AND PRN. PATIENT INSTRUCTED ON IMPORTANCE OF OFFLOADING WOUND BY FREQUENT REPOSITIONING. STATES HE UNDERSTANDS.
--- NOTE | 2020-07-10 15:32 | NUR ---
ALERT AND ORIENTED X4. DROWSY AT TIME. REPOSITIONED OR TURNED AT LEAST EVERY 2 HOURS. WOUND NURSE HERE TODAY AND ADRESSED PATIENT'S WOUNDS. BOOT REMAINS IN PLACE OVER RIGHT HEEL. UP WITH BRIGITTE LIFT AND 2 ASSIST. REMAINS ON O2 AT 2L/NC. USES CALL LIGHT FOR ASSIST. FALL PRECAUTIONS IN PLACE. BED ALARM AND CHAIR ALARM USED.
[2020-07-10 19:00] VITALS: BP 99/58
--- NOTE | 2020-07-11 04:55 | NUR ---
ASSUMED PT CARE AT 1930. PT ALERT AND ORIENTED, POLITE AND COOPERATIVE WITH CARES. RESTING IN BED AT SHIFT CHANGE. TAKES PILLS WHOLE WITH WATER. INCONTIENT OF STOOL X6. PERICARE PROVIDED. DRESSING PLACED BY WOUND NURSE INTACT. PT TURNED Q2. BRACE TO RIGHT FOOT. LEFT FOOT ON PILLOW. ON 2L 02 PER NC. DENIES NEED FOR PAIN MEDS. CALL LIGHT IN REACH, BED ALARM ON FOR SAFETY. HOURLY ROUNDING IN PROGRESS, WILL CONTINUE TO MONITOR.
[2020-07-11 08:00] VITALS: BP 134/73
[2020-07-11 09:44] LABS: HEMATOCRIT 33.8 % (42.0-52.0); MCH 29.6 pg (26.0-34.0); MCHC 32.5 g/dL (28.0-37.0); MCV 91.2 fL (80.0-100.0); MPV 6.5 fl. (7.2-11.1); RBC 3.7 mil/uL (4.50-6.00); RDW-CV 18.1 % (10.5-14.5); WBC 5.5 thou/uL (4.0-11.0)
[2020-07-11 09:51] LABS: CALCIUM 9.7 mg/dL (8.5-10.1); POTASSIUM 4.2 mmol/L (3.5-5.1)
[2020-07-11 09:53] LABS: CREATININE 8.2 mg/dL (0.6-1.3)
--- NOTE | 2020-07-11 18:19 | NUR ---
AM ASSESSMENT AND VITAL SIGNS COMPLETED DOCUMENTED. PT HAS BEEN FAIRLY ALERT TODAY BUT HAS NOT BEEN ORIENTED TO PLACE OR SITUATION. PT'S TOOK HIS CELL PHONE HOME BECAUSE HE HAS BEEN MAKING CALLS AND GIVING HIS FRIENDS AND FAMILY FALSE INFORMATION. PT CONTINUES TO BE A BRIGITTE LIFT FOR TRANSFERS. DRESING TO COCCYX CHANGED DUE TO SOILING. PT WAS INCONTINENT OF BM X 2. FALL PRECAUTIONS AND HOURLY ROUNDING CONTINUE.
[2020-07-11 19:00] VITALS: BP 110/68
--- NOTE | 2020-07-12 05:31 | NUR ---
ASSUMED PT CARE AT 1930. PT RETURNED FROM DIALYSIS AT SHIFT CHANGE. DROWSY UPON ASSESSMENT. PT TO HAVE SHORT DIALYSIS SESSION TODAY TO MAKE UP FOR HOLIDAY ON FRIDAY THEN RETURN TO SCHEDULE ON FRIDAY. PT ON SPECIALTY BED. PT INCONTINENT OF STOOL WITH EVERY TURN. DRESSING TO COCCYX CHANGED WHEN SOILED. PT ON 2L 02 PER NC. CALL LIGHT IN REACH, BED ALARM ON FOR SAFETY. HOURLY ROUNDING IN PROGRESS, WILL CONTINUE TO MONITOR.
[2020-07-12 08:52] VITALS: BP 101/53
--- NOTE | 2020-07-12 11:26 | NUR ---
Nutrition: Ordered Darin for protein losses in dialysis and wounds.
--- NOTE | 2020-07-12 15:49 | NUR ---
WOUND NURSE: NURSE CARING FOR PATIENT REPORTS THEY HAVING MUCH DIFFICULTY KEEPING A DRESSING ON PATIENT'S SACRAL LESION BECAUSE HE IS HAVING FREQUENT STOOLS. WILL HOLD DRESSINGS FOR NOW AND RESUME Z-GUARD MOISTURE BARRIER PASTE AND CONTINUE TO MONITOR.
--- NOTE | 2020-07-12 15:59 | NUR ---
PT LETHARGIC AND LOW BP. DR DE LA ROSA NOTIFED. DR BLUE NOTIFIED PER DR DE LA ROSA REQUEST. ORDER FOR DIALYSIS NURSE TO GIVE 250ML NS. DIALYSIS NURSE NOTIFIED. PT IN DIALYIS. O2 2L NC. ZINC CREAM APPLIED TO WOUNDS ON BOTTOM PER ORDER. INCONT OF STOOL. VANESSA CARE AND BED CHANGES PRN. UP WITH LIFT. ON SPECIALTY MATTRESS.
--- NOTE | 2020-07-12 16:47 | NUR ---
TEAM CONFRENCE MEETING HELD TODAY. PT AND SPOUSE INFORMED OF MEETING AND PLAN TO D/C PT TO SNF WHEN ARRANGED. PT'S SPOUSE INFORMS THAT SHE IS 'CONCERNED WITH THIS PLAN AND FEARS THAT HE WILL NOT MAKE IT THROUGH THAT'. CM INFOMED PT'S SPOUSE OF SNF OPTIONS AND PT'S SPOUSE TO 'RESEARCH AND DECIDE'. CM WILL REMAIN AVAILABLE TO ASSIST AND FOLLOW NEEDED.
[2020-07-12 19:00] VITALS: BP 142/58
--- NOTE | 2020-07-12 20:35 | NUR ---
RESTING QUIETLY IN BED AND WATCHING TV. DENIES PAIN. CALL LIGHT WITHIN REACH. HELIX BOOT TO RIGHT LEG INTACT. 02 NASAL CANNULA AT TWO LITERS.
--- NOTE | 2020-07-13 05:25 | NUR ---
ASSISTED WITH REPOSITIONING EVERY TWO HOURS. EACH TIMES IS INCONTINENT OF SMALL AMOUNT OF LIQUID STOOL. VANESSA CARE GIVEN. ON 0400 TURN PATIENT HAD HIS LEFT LEG BENT AND AGAINST THE BEDRAIL. NOTED AN ABRASION. CLEANSED WITH WOUND SPRAY AND COVERED WITH XEROFOAM AND STRETCH KERLIX DRESSING. PICTURE TAKEN. HOURLY ROUNDING IN PROGRESS.
[2020-07-13 10:02] VITALS: BP 102/60
[2020-07-13 12:38] LABS: BE 3.5 mmol/L (-2 to +3); PCO2 VENOUS 53.1 mmHg (41.0-51.0); PO2 VENOUS 33.5 mmHg (35.0-45.0)
[2020-07-13 12:49] LABS: ALBUMIN 3.3 g/dL (3.4-5.0); CALCIUM 9.2 mg/dL (8.5-10.1); MAGNESIUM 2.3 mg/dL (1.8-2.4); POTASSIUM 3.6 mmol/L (3.5-5.1); TOTAL BILIRUBIN 0.7 mg/dL (<0.1-1.0); TOTAL PROTEIN 7.4 g/dL (6.4-8.2)
[2020-07-13 12:50] LABS: CREATININE 4.4 mg/dL (0.6-1.3)
--- NOTE | 2020-07-13 18:50 | NUR ---
ASSESSMENT COMPLETED DOCUMENTED THIS MORNING. DR. DE LA ROSA IN THIS MORNING AND NOTED PT'S. LETHARGY, LACK OF APPETITE, AND MENTAL CONFUSION. NEW ORDERS NOTED, STAT CT OF HEAD OBTAINED AND NOTED NO NEW CHANGES. ORDER FOR UA, NURSING BLADDER SCANNED PRIOR TO ATTEMPTING A CATH FOR URINE SPECIMEN AND NO URINE NOTED IN BLADDER, UNABLE TO OBTAIN UA. AT THE BEDSIDE AND HE WOULD WAKE UP AND CONVERSE VERY BRIEFLY AND THEN WOULD FALL BACK ASLEEP.
--- NOTE | 2020-07-13 19:35 | NUR ---
SITTING UP IN BED WATCHING TV. DENIES DISCOMFORT. RIGHT HELIX BOOT ON. 02 NASAL CANNULA AT TWO LITERS WITH 100% 02 SAT. SNACK PROVIDED. CALL LIGHT ALEX LOVE.
[2020-07-13 20:12] VITALS: BP 86/41
[2020-07-14 04:51] LABS: ALBUMIN 3.1 g/dL (3.4-5.0); CALCIUM 9.4 mg/dL (8.5-10.1); POTASSIUM 3.5 mmol/L (3.5-5.1); TOTAL BILIRUBIN 0.5 mg/dL (<0.1-1.0); TOTAL PROTEIN 6.3 g/dL (6.4-8.2)
[2020-07-14 04:52] LABS: CREATININE 5.6 mg/dL (0.6-1.3)
--- NOTE | 2020-07-14 05:00 | NUR ---
RESTED QUIETLY. ASSISTED WITH REPOSITIONING EVERY TWO HOURS. INCONTINENT OF LIQUID STOOL X 3. VANESSA CARE GIVEN. Z GUARD APPLIED TO BUTTOCKS. HOURLY ROUNDING IN PROGRESS.
[2020-07-14 07:53] VITALS: BP 103/48
--- NOTE | 2020-07-14 15:57 | NUR ---
ALERT AND ORIENTED X4. UP WITH 2 ASSIST AND BRIGITTE LIFT. DENIES PAIN. REPOSITIONED SEVERAL TIMES THROUGH OUT DAY. CREAM APPLIED TO BUTTOCK SEVERAL TIMES TODAY. DOES NOT VOID. INCONTINENT OF SEVERAL VERY SMALL STOOLS. BOOT REMAINS IN PLACE OVER RIGHT HEEL DECUB. REMAINS ON O2 AT 2L/NC. USES CALL LIGHT FOR ASSIST. FALL PRECAUTIONS IN PLACE. BED ALARM AND CHAIR ALARM USED.
[2020-07-14 20:00] VITALS: BP 94/52
[2020-07-15 07:30] VITALS: BP 101/54
--- NOTE | 2020-07-15 17:13 | NUR ---
ASSESSMENT COMPLETED DOCUMENTED THIS MORNING. PATIENT ASSISTING WITH USE OF SLIDING BOARD TO TRANSFER AND DOING VERY WELL. NEW ORDER FROM DR. DE LA ROSA TO START ARIPIPRAZOLE 10MG PO AT HS.
[2020-07-15 19:50] VITALS: BP 102/55
--- NOTE | 2020-07-16 04:46 | NUR ---
ASSUMED PT CARE AT 1930. PT RECENTLY RETURNED FROM DIALYSIS. PT ALERT AND ORIENTED TO SELF, BUT VERY TIRED. DENIED PAIN AT SHIFT CHANGE. PT TURNED Q2, INCONTIENT OF STOOL WITH EACH TURN. Z GUARD TO BUTTOCKS EACH TIME CLEANED. DOES NOT VOID. HELIX BOOT TO RIGHT HEEL. TYLENOL X1 FOR BUTTOCK PAIN. ON ROOM AIR. PT CALLS OUT RATHER THAN USING CALL LIGHT. BED ALARM ON FOR SAFETY, HOURLY ROUNDING IN PROGRESS, WILL CONTINUE TO MONITOR.
[2020-07-16 08:00] VITALS: BP 120/64
--- NOTE | 2020-07-16 17:23 | NUR ---
ASSESSMENT COMPLETED DOCUMENTED THIS MORNING. PATIENT HAS BEEN A BIT MORE CONFUSED TODAY, REQUESTING A SHOWER AT 1700, TOLD HIS THAT HE WAS ARGUING WITH THE [facility] THIS MORNING. HAS BEEN INCONT OF BM AT EVERY 2 HR TURN TODAY. VERY POOR APPETITE CONTINUES. ZINC OINTMENT APPLIED WITH EVERY CLEANSING ON COCCYX.
[2020-07-16 20:14] VITALS: BP 106/57
--- NOTE | 2020-07-17 04:59 | NUR ---
ASSUMED PT CARE AT 1930. PT ASLEEP PRIOR TO ASSESSMENT AND HS MEDS. PT NOT VERY TALKATIVE. DENIED NEED FOR PAIN MEDS. TOOK MEDS ALL AT ONCE WITH WATER AND WENT BACK TO SLEEP. PT TURNED Q2, INCONTINENT OF STOOL WITH EVERY TURN. Z GUARD TO COCCYX WITH TURNS. ON ROOM AIR. CALL LIGHT IN REACH, BED ALARM ON FOR SAFETY. HOURLY ROUNDING IN PROGRESS, WILL CONTINUE TO MONITOR.
[2020-07-17 08:00] VITALS: BP 112/58
--- NOTE | 2020-07-17 09:41 | NUR ---
WOUND NURSE: PATIENT SEEN FOR FOLLOW UP ASSESSMENT PERTAINING TO SACROCOCCYGEAL STAGE 2 PRESSURE INJURY: PATIENT WAS INCONTINENT OF FECES. CLEANSED WITH SOAP AND WATER, RINSED WITH WATER, THEN PATTED DRY. APPLIED SKIN PREP FOR PROTECTION TO INTACT PERIWOUND TISSUE. APPLIED Z-GUARD MOISTURE BARRIER PASTE TO THE LESION. PRESENTS A SHALLOW EROSION WITH 2 WOUND OPENINGS WHICH APPEAR TO BE HEALING. 75% OF THE MEASURED AREA IS INTACT SKIN AND 25% OF THE AREA IS SHALLOW EROSION.
--- NOTE | 2020-07-17 16:24 | NUR ---
PT A&Ox3. VITALS STABLE. NO IV. R ANKLE BRUISED FROM FRACTURE. BOOT IN PLACE ON R ANKLE WHILE AMBULATING. PT IS INCONTINENT OF BOWEL AND BLADDER. WORKED WELL WITH THERAPY. ATE MEALS WELL. ACCU CHECK. LEFT LIMB ALERT DUE TO FISTULA. USED SLIDE BOARD WITH THERAPY TRANSFERS. NERUO CONSULT FOR AMS. SEEN BY WOUND NURSE FOR Mazin HDZ USED. FALL PRECAUTIONS IN PLACE. CALL LIGHT WITHIN REACH. WILL CONTINUE TO MONITOR.
[2020-07-17 19:00] VITALS: BP 99/58
[2020-07-18 04:39] LABS: ABSOLUTE BASOPHILS 0.1 thou/uL (0.0-0.2); ABSOLUTE EOSINOPHILS 0.1 thou/uL (0.0-0.7); ABSOLUTE LYMPHOCYTES 1.6 thou/uL (0.8-5.3); ABSOLUTE MONOCYTES 0.9 thou/uL (0.0-1.2); ABSOLUTE NEUTROPHILS 3.5 thou/uL (1.6-8.1); BASOPHILS 1.4 %; HEMATOCRIT 34.4 % (42.0-52.0); HEMOGLOBIN 11.1 gm/dL (14.0-18.0); LYMPHOCYTES 25.4 %; MCH 29.6 pg (26.0-34.0); MCHC 32.3 g/dL (28.0-37.0); MCV 91.4 fL (80.0-100.0); MONOCYTES 14.1 %; MPV 7.3 fl. (7.2-11.1); NUCLEATED RBCS 0 /100WBC; PLATELET COUNT* 223 thou/uL (150-400); POLYS 57.1 %; RBC 3.76 mil/uL (4.50-6.00); RDW-CV 18.1 % (10.5-14.5); WBC 6.2 thou/uL (4.0-11.0)
--- NOTE | 2020-07-18 04:45 | NUR ---
ASSUMED PT CARE AT 1930. ALERT AND ORIENTED X4, POLITE AND COOPERATIVE WITH CARES. TAKES PILLS WHOLE WITH WATER ALL AT ONCE WITHOUT DIFFICULTY. ON ROOM AIR. PT INCONTIENT OF BOWEL WITH EVERY TURN Q2, PERICARE PROVIDED AND Z GUARD APPLIED. BOOT TO RIGHT FOOT. FISTULA TO LEFT UPPER ARM INTACT. PT TO HAVE DIALYSIS TODAY. CALL LIGHT IN REACH, BED ALARM ON FOR SAFETY. HOURLY ROUNDING IN PROGRESS, WILL CONTINUE TO MONITOR.
[2020-07-18 05:01] LABS: PHOSPHORUS* 3.2 mg/dL (2.5-4.9); POTASSIUM 3.9 mmol/L (3.5-5.1)
[2020-07-18 08:00] VITALS: BP 114/56
--- NOTE | 2020-07-18 15:51 | NUR ---
CM SPOKE TO THE PT AND HIS SPOUSE TO DISCUSS ANY QUESTIONS OR CONCERNS THAT THEY MAY HAVE FOR TOMORROWS TEAM CONFRENCE MEETING AND PLAN TO D/C PT TOMORROW TO [facility] THEY HAVE ACCEPTED THE PT FOR SNF. PT AND SPOUSE IN AGREEMENT WITH THE PLAN. PT'S SPOUSE INFORMS THAT SHE IS 'CONCERNED WITH THE WAY THAT HIS ANKLE LOOKS. IT'S SWOLLEN AND DOESN'T LOOK RIGHT. I ASKED IF THE ORTHOPEDIC DR HAD LOOKED AT IT YESTERDAY'. CM INFORMED THE RN OF THIS INFO AND SHE INFORMS OF THE PLAN TO INFORM THE PHYSICIAN. CM WILL REMAIN AVAILABLE TO ASSIST AND FOLLOW NEEDED.
--- NOTE | 2020-07-18 18:55 | NUR ---
ALERT AND ORIENTED X4 TODAY. ANSWERING QUESTIONS APPROPRIATELY. DENIES NEED FOR PAIN MEDICATION. UP WITH 2 ASSIST, AND BRIGITTE LIFT. RIGHT INNER ANKLE NOTED TO BE MORE PROMINENT. DR NOTIFIED AND NEW ORDERS NOTED. XRAY DONE. ORTHO CONSULTED AND GIVEN XRAY REPORT. KAI ANGULO HERE AND TALKED WITH PATIENT REGARDING XRAY REPORT. WAS CALLED AND NOTIFIED OF POSSIBLE SURGERY 07/19. AWAITING ULTRASOUND REPORT. BARRIER CREAM APPLIED TO OPEN AREAS ON BUTTOCK. PATIENT REPOSITIONED FREQUENTLY THROUGHOUT DAY. PRESSURE RELIEVING BOOT ON WHILE IN BED. REMAINS ON SPECIALTY BED.
[2020-07-18 19:00] VITALS: BP 104/64
[2020-07-19 05:37] LABS: HEMATOCRIT 36.8 % (42.0-52.0); HEMOGLOBIN 11.8 gm/dL (14.0-18.0); MCH 29.7 pg (26.0-34.0); MCHC 32.1 g/dL (28.0-37.0); MCV 92.5 fL (80.0-100.0); MPV 7.2 fl. (7.2-11.1); RBC 3.98 mil/uL (4.50-6.00); RDW-CV 18.2 % (10.5-14.5); WBC 5.5 thou/uL (4.0-11.0)
[2020-07-19 05:48] LABS: CALCIUM 9.1 mg/dL (8.5-10.1); POTASSIUM 3.8 mmol/L (3.5-5.1)
[2020-07-19 06:30] VITALS: BP 112/59
[2020-07-19 07:45] VITALS: BP 127/71
--- NOTE | 2020-07-19 07:56 | NUR ---
ASSUMED CARE AT 1920. ALERT AND ORIENTED. PLEASANT. DENIED ANY PAIN TO FOOT OR ANKLE. PRASRIDEVI BOOT TO RLE. HAS BEEN NPO SINCE MIDNIGHT. INCONTINENT OF STOOL. BLANCHE NEWMAN TO BOTTOM. INFORMED SIGNAL CONSTRUCTOR THIS AM THAT DOES NOT WANT PT TO HAVE SURGERY HERE AND WOULD LIKE PT TRANSFERRED TO [facility]. ORTHO RESIDENT INFORMED AND HE WILL DISCUSS WITH DR QUINN AND CALL . WILL CONTINUE TO MONITOR.
[2020-07-19 08:00] VITALS: BP 127/71
--- NOTE | 2020-07-19 09:44 | NUR ---
CM INFORMED BY PHLEBOTOMY LAB ASSISTANT OF PT'S SPOUSE REQUEST TO INITIATE TRASFER FOR THE PT TO [facility] FOR ORTHOPEDIC SX. CM SPOKE TO HOSPITALIST AND RN INFOMED REHAB PHYSICIAN. HOSPITALIST INFORMS THAT HE IS WILLING TO ASSIST WITH TRANSFER. SENDING PHYSICIAN: DR SO, REASON: FAMILY REQUEST, AND RT ANKLE FX AND DISLOCATION, BED: MED-SURG. CM SPOKE TO [facility] TRANFER TEAM TO INFORM OF THE NEED TO INITIATE TRANSFER, AND THEY REQUEST NEED TO FAX PT'S FACESHEET AND INSURANCE CARD. CM SPOKE TO PT'S SPOUSE TO INFORM OF THE TRANSFER PROCESS AND THAT IT IS POSSIBLE THAT THE PT MAY NOT BE ABLE TO TRASFER TODAY D/T BED AVAILABILITY. CM AWAITING A CALLBACK FROM [facility] TRANSFER TEAM TO INFORM OF ABILITY TO ACCEPT AND TRANSFER PT. CM INFORMED RADIOLOGY OF THE NEED TO UPLOAD PT'S RADIOLOGY IMAGES UPLOADED TO THE [facility] FROM 06/23/20 FORWARD. CM WILL REMAIN AVAILABLE TO ASSIST AND FOLLOW NEEDED. [facility] TRANSFER TEAM PHONE: [phone] FAX: [phone]
--- NOTE | 2020-07-19 14:09 | NUR ---
PATIENT, , DR STEVENS AND DR SO TALKED ABOUT PLAN FOR PATIENT. IT WAS DECIDED FOR PATIENT TO GO TO ACUTE SIDE OF HOSPITAL TO ROOM 206. RIGHT FOOT IN SPLINT WITH GOOD CAPILLARY REFILL. TOES ON RIGHT FOOT WARM AND PINK. CREAM APPLIED TO OPEN AREAS ON BUTTOCK. PATIENT REPOSITIONED SEVERAL TIMES TODAY. PATIENT REMAINS NPO AT THIS TIME.
--- NOTE | 2020-07-19 14:36 | NUR ---
REPORT GIVEN TO JO ON TELE. SHE WAS NOTIFIED OF MOST RECENT ASSESSMENT, AND V/S. DENIES C/O PAIN.
[2020-07-19 15:39] VITALS: BP 127/71
== END 2020-07-19 14:12 | disposition short-term general hospital (02) | DRG 562 ==
LOC: M.REH 17:10
PROVIDERS: Internal Medicine; Internal Medicine Nephrology; Nurse Practitioner; ADMIT Physical Medicine & Rehabilitation; ATTEND Physical Medicine & Rehabilitation
PROC: 5A1D70Z Performance of Urinary Filtration, Intermittent, Less than 6 Hours Per Day (ICD-10-PCS; principal; 2020-07-01)
PROC: 5A1D70Z Performance of Urinary Filtration, Intermittent, Less than 6 Hours Per Day (ICD-10-PCS; 2020-07-11)
PROC: 5A1D70Z Performance of Urinary Filtration, Intermittent, Less than 6 Hours Per Day (ICD-10-PCS; 2020-07-15)
DX: S82.831A Other fracture of upper and lower end of right fibula, initial encounter for closed fracture (principal); N18.6 End stage renal disease; E43 Unspecified severe protein-calorie malnutrition; J96.01 Acute respiratory failure with hypoxia; I50.32 Chronic diastolic (congestive) heart failure; I13.2 Hypertensive heart and chronic kidney disease with heart failure and with stage 5 chronic kidney disease, or end stage renal disease; I47.1 Supraventricular tachycardia; F44.4 Conversion disorder with motor symptom or deficit; D63.8 Anemia in other chronic diseases classified elsewhere; F32.9 Major depressive disorder, single episode, unspecified; I25.10 Atherosclerotic heart disease of native coronary artery without angina pectoris; I27.20 Pulmonary hypertension, unspecified; F41.1 Generalized anxiety disorder; R53.81 Other malaise; D63.1 Anemia in chronic kidney disease; L89.619 Pressure ulcer of right heel, unspecified stage; L89.159 Pressure ulcer of sacral region, unspecified stage; W18.39XA Other fall on same level, initial encounter; Y93.89 Activity, other specified; Y92.89 Other specified places as the place of occurrence of the external cause; Y99.8 Other external cause status; E11.22 Type 2 diabetes mellitus with diabetic chronic kidney disease; Z86.73 Personal history of transient ischemic attack (TIA), and cerebral infarction without residual deficits; Z88.2 Allergy status to sulfonamides; Z88.1 Allergy status to other antibiotic agents; Z82.49 Family history of ischemic heart disease and other diseases of the circulatory system; Z68.33 Body mass index [BMI] 33.0-33.9, adult; Z99.2 Dependence on renal dialysis

== ENCOUNTER 2020-07-19 14:02 | Inpatient (IN) | payer MEDICARE ==
[~2020-07-19] VITALS: Ht 175.3 cm; Wt 90.7 kg
[2020-07-19 17:15] VITALS: BP 128/62
[2020-07-20] VITALS: BP 107/61
[2020-07-20 04:00] VITALS: BP 93/47
[2020-07-20 04:33] LABS: ABSOLUTE BASOPHILS 0.1 thou/uL (0.0-0.2); ABSOLUTE EOSINOPHILS 0.1 thou/uL (0.0-0.7); ABSOLUTE LYMPHOCYTES 1.3 thou/uL (0.8-5.3); ABSOLUTE MONOCYTES 0.7 thou/uL (0.0-1.2); ABSOLUTE NEUTROPHILS 3.1 thou/uL (1.6-8.1); BASOPHILS 1.5 %; EOSINOPHILS 1.1 %; HEMATOCRIT 37.3 % (42.0-52.0); HEMOGLOBIN 11.9 gm/dL (14.0-18.0); LYMPHOCYTES 25.5 %; MCH 29.8 pg (26.0-34.0); MCHC 31.9 g/dL (28.0-37.0); MCV 93.5 fL (80.0-100.0); MONOCYTES 12.7 %; MPV 7.3 fl. (7.2-11.1); NUCLEATED RBCS 0 /100WBC; PLATELET COUNT* 223 thou/uL (150-400); POLYS 59.2 %; RBC 3.98 mil/uL (4.50-6.00); RDW-CV 17.8 % (10.5-14.5); WBC 5.3 thou/uL (4.0-11.0)
[2020-07-20 04:55] LABS: CALCIUM 9.2 mg/dL (8.5-10.1); POTASSIUM 3.9 mmol/L (3.5-5.1)
[2020-07-20 05:25] LABS: CREATININE 6.6 mg/dL (0.6-1.3)
[2020-07-20 08:00] VITALS: BP 98/41
[2020-07-20 12:16] VITALS: BP 119/62
[2020-07-20 15:52] VITALS: BP 129/74
[2020-07-20 20:30] VITALS: BP 115/63
[2020-07-21] VITALS: BP 110/63
[2020-07-21 04:00] VITALS: BP 91/55
[2020-07-21 20:00] VITALS: BP 94/52
[2020-07-22] VITALS: BP 104/52
[2020-07-22 04:00] VITALS: BP 100/60
[2020-07-22 04:18] LABS: ABSOLUTE LYMPHOCYTES 0.5 thou/uL (0.8-5.3); ABSOLUTE MONOCYTES 0.3 thou/uL (0.0-1.2); ABSOLUTE NEUTROPHILS 3.9 thou/uL (1.6-8.1); BASOPHILS 0.2 %; HEMATOCRIT 35.3 % (42.0-52.0); LYMPHOCYTES 9.5 %; MCH 29.1 pg (26.0-34.0); MCHC 31.2 g/dL (28.0-37.0); MCV 93.2 fL (80.0-100.0); MONOCYTES 7.1 %; MPV 7.2 fl. (7.2-11.1); NUCLEATED RBCS 0 /100WBC; PLATELET COUNT* 205 thou/uL (150-400); POLYS 83.2 %; RBC 3.79 mil/uL (4.50-6.00); RDW-CV 18.2 % (10.5-14.5); WBC 4.7 thou/uL (4.0-11.0)
[2020-07-22 04:59] LABS: POTASSIUM 5.1 mmol/L (3.5-5.1); TOTAL BILIRUBIN 0.5 mg/dL (<0.1-1.0); TOTAL PROTEIN 6.8 g/dL (6.4-8.2)
[2020-07-22 05:35] LABS: CREATININE 9.7 mg/dL (0.6-1.3)
[2020-07-22 08:00] VITALS: BP 100/57
[2020-07-22 16:37] VITALS: BP 101/50
[2020-07-22 20:45] VITALS: BP 94/54
[2020-07-23] VITALS: BP 117/63
[2020-07-23 04:00] VITALS: BP 128/66
[2020-07-23 05:45] LABS: ABSOLUTE EOSINOPHILS 0.1 thou/uL (0.0-0.7); ABSOLUTE LYMPHOCYTES 1.1 thou/uL (0.8-5.3); ABSOLUTE MONOCYTES 0.6 thou/uL (0.0-1.2); ABSOLUTE NEUTROPHILS 3.9 thou/uL (1.6-8.1); BASOPHILS 0.8 %; EOSINOPHILS 1.1 %; HEMATOCRIT 36.6 % (42.0-52.0); HEMOGLOBIN 11.6 gm/dL (14.0-18.0); LYMPHOCYTES 19.8 %; MCH 29.6 pg (26.0-34.0); MCHC 31.6 g/dL (28.0-37.0); MCV 93.5 fL (80.0-100.0); MONOCYTES 10.6 %; MPV 7.2 fl. (7.2-11.1); NUCLEATED RBCS 0 /100WBC; PLATELET COUNT* 185 thou/uL (150-400); POLYS 67.7 %; RBC 3.91 mil/uL (4.50-6.00); RDW-CV 18.7 % (10.5-14.5); WBC 5.8 thou/uL (4.0-11.0)
[2020-07-23 05:57] LABS: CALCIUM 8.8 mg/dL (8.5-10.1)
[2020-07-23 06:06] LABS: CREATININE 5.1 mg/dL (0.6-1.3); POTASSIUM 3.7 mmol/L (3.5-5.1)
[2020-07-23 08:00] VITALS: BP 108/63
[2020-07-23 12:00] VITALS: BP 88/45
[2020-07-23 16:00] VITALS: BP 96/51
[2020-07-23 20:54] VITALS: BP 132/69
[2020-07-24 00:42] VITALS: BP 113/65
[2020-07-24 04:00] VITALS: BP 120/53
[2020-07-24 05:21] LABS: ABSOLUTE BASOPHILS 0.1 thou/uL (0.0-0.2); ABSOLUTE EOSINOPHILS 0.1 thou/uL (0.0-0.7); ABSOLUTE MONOCYTES 0.5 thou/uL (0.0-1.2); ABSOLUTE NEUTROPHILS 2.6 thou/uL (1.6-8.1); HEMATOCRIT 39.1 % (42.0-52.0); HEMOGLOBIN 12.2 gm/dL (14.0-18.0); LYMPHOCYTES 23.5 %; MCH 29.4 pg (26.0-34.0); MCHC 31.3 g/dL (28.0-37.0); MCV 94.2 fL (80.0-100.0); MONOCYTES 11.1 %; MPV 7.3 fl. (7.2-11.1); NUCLEATED RBCS 0 /100WBC; PLATELET COUNT* 185 thou/uL (150-400); POLYS 61.4 %; RBC 4.15 mil/uL (4.50-6.00); RDW-CV 17.8 % (10.5-14.5); WBC 4.3 thou/uL (4.0-11.0)
[2020-07-24 06:04] LABS: ALBUMIN 3.2 g/dL (3.4-5.0); CALCIUM 9.5 mg/dL (8.5-10.1); POTASSIUM 3.7 mmol/L (3.5-5.1); TOTAL BILIRUBIN 0.6 mg/dL (<0.1-1.0); TOTAL PROTEIN 7.4 g/dL (6.4-8.2)
[2020-07-24 06:10] LABS: CREATININE 6.7 mg/dL (0.6-1.3)
[2020-07-24 08:00] VITALS: BP 129/70
[2020-07-24 13:02] VITALS: BP 139/66
[2020-07-24 17:17] VITALS: BP 105/64
[2020-07-24 19:45] VITALS: BP 98/59
[2020-07-25 00:16] VITALS: BP 112/60
[2020-07-25 04:18] VITALS: BP 115/65
[2020-07-25 08:00] VITALS: BP 106/65
[2020-07-25] MEDS ORDERED: HEPARIN SO5000 UNIT/ SUBQ (09:53)
[2020-07-25] MEDS ORDERED: COLACE 100 MG100 MG PO (09:53)
[2020-07-25 12:00] VITALS: BP 106/62
[2020-07-25 18:45] VITALS: BP 94/67
[2020-07-25 22:00] VITALS: BP 104/68
[2020-07-26] VITALS: BP 119/73
[2020-07-26 04:00] VITALS: BP 123/65
[2020-07-26 05:28] LABS: CALCIUM 9.1 mg/dL (8.5-10.1); PHOSPHORUS* 3.3 mg/dL (2.5-4.9); POTASSIUM 4.5 mmol/L (3.5-5.1)
[2020-07-26 05:34] LABS: CREATININE 5.3 mg/dL (0.6-1.3)
--- NOTE | 2020-07-26 07:03 | OP ---
[address] [address] OPERATIVE REPORT Name: JAROCHO CALZADA Room: [address] IN .R.#: [id number] Admission: 07/19/20 Attend Phys: Roly Vera MD Discharge: Date of : 48 Report #: [id number] THIS REPORT FOR: cc: Scout Arcos MD, Michael S. MD ~ Eric Agudelo DO CC: Roly Arcos DATE OF SERVICE: 07/21/2020 PREOPERATIVE DIAGNOSIS: Right ankle distal fibula fracture shaft with fracture subluxation of the talus, deltoid ligament tear and pressure ulcer, medial side of the ankle and the heel, diabetic in nature. POSTOPERATIVE DIAGNOSIS: Right ankle distal fibula fracture shaft with fracture subluxation of the talus, deltoid ligament tear and pressure ulcer, medial side of the ankle and the heel, diabetic in nature. SURGERIES PERFORMED: 1. Right ankle application of Sanjeev external fixator with closed reduction. 2. Placement of syndesmotic screw of the right ankle. SURGEON: Eric Agudelo DO ENTRY LEVEL PROGRAMMER: Brandyn Ohara. SECOND SUPERINTENDENT MAINTENANCE AIRPORTS: Arias Lara. ANESTHESIA: General anesthetic. ANTIBIOTICS: The patient received Ancef 2 grams IV piggyback preoperatively. He has no specimens, complications or drains. ESTIMATED BLOOD LOSS: Minimal. GROSS FINDINGS: Prior to surgery, this gentleman had a previous sustained fracture early June and then secondary to a new fall injury displaced this fracture, unknown and then a repeat x-ray showed the displaced fracture and ankle subluxation. The patient could not have a closed reduction that was stable, so we elected for surgical fixation and post-placement of the apparatus today which demonstrated good reduction of the ankle mortise AP and lateral views. SURGERY IN DETAIL: The patient was taken to the [place] [address] OPERATIVE REPORT Name: JAROCHO CALZADA Room: [address] IN [facility]#: [id number] Admission: 07/19/20 Attend Phys: Roly Vera MD Discharge: Date of : 48 Report #: [id number] table, given the benefit of general anesthetic, the leg was placed on the foot pad and he underwent a Hibiclens scrub and chlorhexidine prep and sterile draping for right leg surgery. Timeout was called and verified by everyone in the room for the right leg. Surgery began at this point in time. After the sterile draping and timeout, I initially started the external fixator process placed in the tibia, Schanz type pins from anterior to posterior, verifying the position with the C-arm and then the calcaneal pin was placed as well, verifying the position with C-arm, I did manage C-arm throughout surgery. Surgery also continued at this point in time now hooking up the external fixator reducing this ankle mortise and tightening all aspects of the fixator into one stable position. Once this was accomplished, we elected to place as there was no soft tissue injury to the lateral side of the ankle but one syndesmotic screw across this fibula to hold it in place in the event the external fixator might slip and the screw could help hold this and it was placed without difficulty. Once these have all accomplished pressure was definitely taken off the medial ulcer, so this has a potential to heal despite an arterial runoff study showing only 1-vessel supplied to the ankle area, but he does have some warm skin. Post-placement all these, sterile Xeroform, 4 x 4s, Kerlix dressing was placed across the ankle. Wound care will see him postoperatively for those ulcers. A heel pad was placed kick up so there would be no pressure on the heel as well. This was attached to the external fixator. The patient was transferred off the table, taken to recovery in stable condition. I attest I was present for all critical aspects of surgery. Needle, instrument, sponge counts correct. I did have a talk with the afterwards. He does have a complicated history is not only the diabetes, renal dialysis and poor blood flow that this still may not heal and he and her both know these could still require a partial amputation of this leg if and when it might not. Our pleasure taking care of the patient today. <ELECTRONICALLY SIGNED> By: Eric Agudelo DO 07/26/20 0703 1409 [id number] Agudelo DO /guanaco
[2020-07-26 08:00] VITALS: BP 103/56
[2020-07-26 12:49] VITALS: BP 115/52
[2020-07-26 16:19] VITALS: BP 132/71
[2020-07-26 22:30] VITALS: BP 107/59
[2020-07-27 00:22] VITALS: BP 107/59
[2020-07-27 05:18] VITALS: BP 105/63
[2020-07-27 13:50] VITALS: BP 105/63
== END 2020-07-27 16:25 | DRG 492 ==
LOC: M.2W 14:02
PROVIDERS: Internal Medicine; Radiology Diagnostic Radiology; ADMIT Internal Medicine; ATTEND Internal Medicine
PROC: B41D1ZZ Fluoroscopy of Aorta and Bilateral Lower Extremity Arteries using Low Osmolar Contrast (ICD-10-PCS; 2020-07-19)
PROC: 02HV33Z Insertion of Infusion Device into Superior Vena Cava, Percutaneous Approach (ICD-10-PCS; 2020-07-20)
PROC: B548ZZA Ultrasonography of Superior Vena Cava, Guidance (ICD-10-PCS; 2020-07-20)
PROC: B3121ZZ Fluoroscopy of Left Subclavian Artery using Low Osmolar Contrast (ICD-10-PCS; principal; 2020-07-21)
PROC: 02HV33Z Insertion of Infusion Device into Superior Vena Cava, Percutaneous Approach (ICD-10-PCS; principal; 2020-07-21)
PROC: 0JH63XZ Insertion of Tunneled Vascular Access Device into Chest Subcutaneous Tissue and Fascia, Percutaneous Approach (ICD-10-PCS; principal; 2020-07-21)
PROC: 0QSJ35Z Reposition Right Fibula with External Fixation Device, Percutaneous Approach (ICD-10-PCS; principal; 2020-07-21)
PROC: B548ZZA Ultrasonography of Superior Vena Cava, Guidance (ICD-10-PCS; principal; 2020-07-21)
PROC: 0SSF05Z Reposition Right Ankle Joint with External Fixation Device, Open Approach (ICD-10-PCS; principal; 2020-07-21)
PROC: 5A1D70Z Performance of Urinary Filtration, Intermittent, Less than 6 Hours Per Day (ICD-10-PCS; 2020-07-22)
PROC: 5A1D70Z Performance of Urinary Filtration, Intermittent, Less than 6 Hours Per Day (ICD-10-PCS; 2020-07-27)
DX: M80.071A Age-related osteoporosis with current pathological fracture, right ankle and foot, initial encounter for fracture (principal); N18.6 End stage renal disease; I13.2 Hypertensive heart and chronic kidney disease with heart failure and with stage 5 chronic kidney disease, or end stage renal disease; I50.32 Chronic diastolic (congestive) heart failure; E44.0 Moderate protein-calorie malnutrition; E11.22 Type 2 diabetes mellitus with diabetic chronic kidney disease; D63.1 Anemia in chronic kidney disease; E11.51 Type 2 diabetes mellitus with diabetic peripheral angiopathy without gangrene; I25.10 Atherosclerotic heart disease of native coronary artery without angina pectoris; E11.40 Type 2 diabetes mellitus with diabetic neuropathy, unspecified; R62.7 Adult failure to thrive; L89.159 Pressure ulcer of sacral region, unspecified stage; S82.491A Other fracture of shaft of right fibula, initial encounter for closed fracture; S93.421A Sprain of deltoid ligament of right ankle, initial encounter; M47.9 Spondylosis, unspecified; I77.1 Stricture of artery; L89.519 Pressure ulcer of right ankle, unspecified stage; X58.XXXA Exposure to other specified factors, initial encounter; L89.619 Pressure ulcer of right heel, unspecified stage; Z20.828 Contact with and (suspected) exposure to other viral communicable diseases; Z95.1 Presence of aortocoronary bypass graft; Z88.1 Allergy status to other antibiotic agents; Z95.0 Presence of cardiac pacemaker; Z86.73 Personal history of transient ischemic attack (TIA), and cerebral infarction without residual deficits; Z68.29 Body mass index [BMI] 29.0-29.9, adult; Y93.89 Activity, other specified; Y92.89 Other specified places as the place of occurrence of the external cause; Y99.8 Other external cause status

== ENCOUNTER 2020-08-08 09:05 | Inpatient (IN) | payer MEDICARE ==
[~2020-08-08] VITALS: Ht 175.3 cm; Wt 114.0 kg
[2020-08-08] VITALS (24 sets, daily range): BP systolic 78–129; BP diastolic 33–81
[~2020-08-08 09:05] MED LIST changes: +COLACE 100 MG100 MG PO; +HEPARIN SO5000 UNIT/ SUBQ
[2020-08-08 10:18] LABS: ABSOLUTE BASOPHILS 0.1 thou/uL (0.0-0.2); ABSOLUTE MONOCYTES 0.8 thou/uL (0.0-1.2); BASOPHILS 0.7 %; EOSINOPHILS 0.6 %; HEMATOCRIT 38.2 % (42.0-52.0); LYMPHOCYTES 12.2 %; MCH 29.7 pg (26.0-34.0); MCHC 31.5 g/dL (28.0-37.0); MCV 94.5 fL (80.0-100.0); MONOCYTES 10.3 %; MPV 7.3 fl. (7.2-11.1); NUCLEATED RBCS 0 /100WBC; PLATELET COUNT* 166 thou/uL (150-400); POLYS 76.2 %; RBC 4.04 mil/uL (4.50-6.00); WBC 7.9 thou/uL (4.0-11.0)
[2020-08-08 10:24] LABS: POTASSIUM 3.5 mmol/L (3.5-5.1)
[2020-08-08 10:28] LABS: ALBUMIN 2.3 g/dL (3.4-5.0); TOTAL BILIRUBIN 0.8 mg/dL (<0.1-1.0); TOTAL PROTEIN 6.9 g/dL (6.4-8.2)
[2020-08-08 10:55] LABS: APTT 36.5 Seconds (25.0-31.3); INR 1.2
--- NOTE | 2020-08-08 15:20 | EKG ---
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: ANGELO : 1950 Requested By: Melissa Meek Order Number: [id number] MD: Zackary Anthony Measurements Intervals [place] Rate: 86 P: 0 TX: 67 QRS: 108 QRSD: 119 T: 241 QT: 412 QTc: 493 Interpretive Statements Sinus rhythm Short TX interval Nonspecific intraventricular conduction delay Nonspecific repol abnormality, diffuse leads Compared to ECG 06/23/2020 18:14:01 Short TX interval now present Early repolarization now present T-wave abnormality now present Electronically Signed On 08-08-2020 15:20:34 CLOTH CLASSER by Zackary Anthony [email or web address] <ELECTRONICALLY SIGNED> By: Zackary Anthony MD, FACC 08/08/20 1520 2 2 Zackary Anthony MD, FACC /EPI
[2020-08-09] VITALS (155 sets, daily range): BP systolic 59–167; BP diastolic 26–91
[2020-08-09 05:36] LABS: HEMATOCRIT 33.1 % (42.0-52.0); HEMOGLOBIN 10.4 gm/dL (14.0-18.0); MCH 29.7 pg (26.0-34.0); MCHC 31.5 g/dL (28.0-37.0); MCV 94.4 fL (80.0-100.0); MPV 6.4 fl. (7.2-11.1); RBC 3.51 mil/uL (4.50-6.00); WBC 7.6 thou/uL (4.0-11.0)
[2020-08-09 07:07] LABS: CALCIUM 8.8 mg/dL (8.5-10.1); MAGNESIUM 2.1 mg/dL (1.8-2.4); POTASSIUM 3.5 mmol/L (3.5-5.1)
[2020-08-10] VITALS (76 sets, daily range): BP systolic 71–130; BP diastolic 36–100
[2020-08-10 02:06] LABS: CORTISOL 30 MIN 29.7 ug/dL (Not Estab.); CORTISOL 60 MIN 33.9 ug/dL (Not Estab.); CORTISOL BASELINE 21.6 ug/dL (())
[2020-08-10 04:56] LABS: HEMATOCRIT 30.6 % (42.0-52.0); HEMOGLOBIN 9.8 gm/dL (14.0-18.0); MCHC 32.2 g/dL (28.0-37.0); MCV 93.1 fL (80.0-100.0); MPV 6.7 fl. (7.2-11.1); RBC 3.28 mil/uL (4.50-6.00); RDW-CV 18.1 % (10.5-14.5); WBC 7.3 thou/uL (4.0-11.0)
[2020-08-10 05:13] LABS: ALBUMIN 1.8 g/dL (3.4-5.0); CALCIUM 8.8 mg/dL (8.5-10.1); CREATININE 3.1 mg/dL (0.6-1.3); POTASSIUM 3.5 mmol/L (3.5-5.1); TOTAL BILIRUBIN 0.5 mg/dL (<0.1-1.0); TOTAL PROTEIN 5.8 g/dL (6.4-8.2)
--- NOTE | 2020-08-10 12:05 | 2DMMODE ---
[place] [address] 2 D/M-MODE ECHOCARDIOGRAM Name: JRAOCHO CALZADA Tae Room: 004-[facility] IN .R.#: [id number] Admission: 08/08/20 Attend Phys: Yon Schwartz, Discharge: Date of : 48 Date of Service: 08/10/20 1204 Report #: [id number] THIS REPORT FOR: cc: Scout Arcos MD, Michael S. MD Liston, Michael J. MD [facility] ~ APPROVED REPORT Study performed: 08/10/2020 09:11:29 EXAM: Limited 2D Echocardiogram Patient Location: In-Patient Room #: 004 Status: routine BSA: 2.11 HR: 91 bpm BP: 108/56 mmHg Rhythm: NSR Other Information Technically limited study due to poor endocardial definition, inability to position patient. Echo Enhancing Agent Indication: Endocardial border delineation Agent(s) / Amount(s) Used: Optison 3 cc Left Ventricle The left ventricle is normal size. There appears to be slight left ventricular systolic dyssynergy possibly due to underlying bundle branch block or paced rhythm. There is normal left ventricular wall thickness. The left ventricular systolic function is normal. LVEF is 55-60%. This study is not technically sufficient to allow evaluation of the LV diastolic function. Right Ventricle The right ventricle is normal size. The right ventricular systolic function is normal. Pacemaker lead is present in the right ventricle. Atria The left atrium size is normal. The right atrium size is normal. Aortic Valve The aortic valve is normal in structure. [address] [address] 2 D/M-MODE ECHOCARDIOGRAM Name: JAROCHO CALZADA Room: [address] IN [facility].#: [id number] Admission: 08/08/20 Attend Phys: Yon Schwartz, Discharge: Date of : 48 Date of Service: 08/10/20 1204 Report #: [id number] Mitral Valve Mild mitral annular calcification. Tricuspid Valve The tricuspid valve is normal in structure. Pulmonic Valve The pulmonary valve is normal in structure. Great Vessels The aortic root is normal in size. IVC is normal in size and collapses >50% with inspiration. <Conclusion> The left ventricle is normal size. There is normal left ventricular wall thickness. The left ventricular systolic function is normal. LVEF is 55-60%. This study is not technically sufficient to allow evaluation of the LV diastolic function. There appears to be slight left ventricular systolic dyssynergy possibly due to underlying bundle branch block or paced rhythm. Pacemaker lead is present in the right ventricle. <ELECTRONICALLY SIGNED> By: Scout Llanos MD, [facility] 08/10/20 1204 1204 1204 Scout Llanos MD, FACC /INF
[2020-08-11] VITALS (69 sets, daily range): BP systolic 57–133; BP diastolic 24–74
[2020-08-11 22:43] LABS: ALBUMIN 1.5 g/dL (3.4-5.0); CALCIUM 8.5 mg/dL (8.5-10.1); CREATININE 5.1 mg/dL (0.6-1.3); POTASSIUM 3.4 mmol/L (3.5-5.1); TOTAL BILIRUBIN 0.4 mg/dL (<0.1-1.0); TOTAL PROTEIN 5.1 g/dL (6.4-8.2)
[2020-08-12] VITALS (42 sets, daily range): BP systolic 79–122; BP diastolic 44–63
[2020-08-13] VITALS (75 sets, daily range): BP systolic 78–125; BP diastolic 32–65
[2020-08-13 04:17] LABS: HEMATOCRIT 28.2 % (42.0-52.0); HEMOGLOBIN 9.1 gm/dL (14.0-18.0); MCH 29.9 pg (26.0-34.0); MCHC 32.4 g/dL (28.0-37.0); MCV 92.5 fL (80.0-100.0); MPV 6.2 fl. (7.2-11.1); NUCLEATED RBCS 0 /100WBC; PLATELET COUNT* 138 thou/uL (150-400); RBC 3.05 mil/uL (4.50-6.00); RDW-CV 17.8 % (10.5-14.5); WBC 7.4 thou/uL (4.0-11.0)
[2020-08-13 04:38] LABS: ALBUMIN 1.5 g/dL (3.4-5.0); CALCIUM 8.2 mg/dL (8.5-10.1); POTASSIUM 3.4 mmol/L (3.5-5.1); TOTAL BILIRUBIN 0.3 mg/dL (<0.1-1.0); TOTAL PROTEIN 5.2 g/dL (6.4-8.2)
[2020-08-13 04:43] LABS: CREATININE 3.5 mg/dL (0.6-1.3)
[2020-08-13 06:17] LABS: ABSOLUTE EOSINOPHILS 0.1 thou/uL (0.0-0.7); ABSOLUTE LYMPHOCYTES 0.6 thou/uL (0.8-5.3); ABSOLUTE MONOCYTES 0.4 thou/uL (0.0-1.2); ABSOLUTE NEUTROPHILS 6.2 thou/uL (1.6-8.1); ANISOCYTOSIS 1+; PLATELET ESTIMATE DECREASED
[2020-08-14] VITALS (44 sets, daily range): BP systolic 81–130; BP diastolic 37–74
[2020-08-14 07:59] LABS: ABSOLUTE LYMPHOCYTES 0.6 thou/uL (0.8-5.3); ABSOLUTE MONOCYTES 0.5 thou/uL (0.0-1.2); ABSOLUTE NEUTROPHILS 8.4 thou/uL (1.6-8.1); BASOPHILS 0.2 %; EOSINOPHILS 0.2 %; HEMATOCRIT 29.3 % (42.0-52.0); HEMOGLOBIN 9.4 gm/dL (14.0-18.0); LYMPHOCYTES 6.3 %; MCH 29.8 pg (26.0-34.0); MCHC 31.9 g/dL (28.0-37.0); MCV 93.4 fL (80.0-100.0); MONOCYTES 5.1 %; MPV 6.7 fl. (7.2-11.1); NUCLEATED RBCS 0 /100WBC; PLATELET COUNT* 161 thou/uL (150-400); POLYS 88.2 %; RBC 3.14 mil/uL (4.50-6.00); RDW-CV 18.2 % (10.5-14.5); WBC 9.5 thou/uL (4.0-11.0)
[2020-08-14 08:06] LABS: ALBUMIN 1.6 g/dL (3.4-5.0); CALCIUM 8.5 mg/dL (8.5-10.1); CREATININE 4.7 mg/dL (0.6-1.3); TOTAL BILIRUBIN 0.4 mg/dL (<0.1-1.0); TOTAL PROTEIN 5.3 g/dL (6.4-8.2)
[2020-08-15] VITALS (10 sets, daily range): BP systolic 94–130; BP diastolic 41–81
[2020-08-15 06:08] LABS: ABSOLUTE LYMPHOCYTES 0.6 thou/uL (0.8-5.3); ABSOLUTE MONOCYTES 0.4 thou/uL (0.0-1.2); ABSOLUTE NEUTROPHILS 9.1 thou/uL (1.6-8.1); BASOPHILS 0.3 %; EOSINOPHILS 0.1 %; HEMATOCRIT 27.2 % (42.0-52.0); HEMOGLOBIN 8.8 gm/dL (14.0-18.0); LYMPHOCYTES 5.5 %; MCH 29.7 pg (26.0-34.0); MCHC 32.2 g/dL (28.0-37.0); MCV 92.2 fL (80.0-100.0); MONOCYTES 3.9 %; MPV 6.3 fl. (7.2-11.1); NUCLEATED RBCS 0 /100WBC; PLATELET COUNT* 147 thou/uL (150-400); POLYS 90.2 %; RBC 2.95 mil/uL (4.50-6.00); RDW-CV 17.8 % (10.5-14.5); WBC 10.1 thou/uL (4.0-11.0)
[2020-08-15 06:21] LABS: ALBUMIN 1.4 g/dL (3.4-5.0); CALCIUM 8.1 mg/dL (8.5-10.1); CREATININE 3.2 mg/dL (0.6-1.3); POTASSIUM 3.8 mmol/L (3.5-5.1); TOTAL BILIRUBIN 0.4 mg/dL (<0.1-1.0); TOTAL PROTEIN 5.2 g/dL (6.4-8.2)
--- NOTE | 2020-08-15 09:57 | CON ---
[address] [address] CONSULTATION Name: JAROCHO CALZADA Room: [address] IN .R.#: [id number] Admission: 08/08/20 Attend Phys: Yon Schwartz MD Discharge: Date of : 48 Report #: [id number] THIS REPORT FOR: cc: Scout Arcos MD, Michael S. MD ~ Adolph Parry MD DATE OF SERVICE: 08/09/2020 REQUESTING PHYSICIAN: Yon Schwartz MD REASON FOR CONSULTATION: Assist in providing dialysis. HISTORY OF PRESENT ILLNESS: The patient is an unfortunate 70-year-old gentleman, medical history significant for end-stage renal disease, coronary artery disease, failure to thrive, presents with complaint of being very weak. Blood pressure was low. He was recently discharged from the rehab facility for his right ankle fracture. Since discharge, he has not been doing well developed depression, losing weight and no appetite. PAST MEDICAL HISTORY: 1. End-stage renal disease. 2. History of coronary artery disease. 3. History of stroke. 4. Obesity. 5. 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 6. Atrial fibrillation. FAMILY HISTORY: Noncontributory. SOCIAL HISTORY: No tobacco, no alcohol abuse. PHYSICAL EXAMINATION: GENERAL: On dialysis now. VITAL SIGNS: Blood pressure 100/60, afebrile. HEENT: Pupils are round. NECK: Supple. CARDIOVASCULAR: Irregular rate. ABDOMEN: Soft. ASSESSMENT: 1. End-stage renal disease. 2. Failure to thrive. 3. Coronary artery disease. [address] [place] [address] CONSULTATION Name: JAROCHO CALZADA Tae Room: [address] IN M.R.#: [id number] Admission: 08/08/20 Attend Phys: Yon Schwartz MD Discharge: Date of : 48 Report #: [id number] PLAN: Dialysis today. We will have to address that issue with his overall wellbeing. It is reasonable to transition to comfort care. <ELECTRONICALLY SIGNED> By: Adolph Parry MD 08/15/20 0957 0947 [id number] Parry MD /nt
[2020-08-16 04:38] VITALS: BP 106/72
[2020-08-16 05:05] LABS: HEMATOCRIT 27.3 % (42.0-52.0); HEMOGLOBIN 8.6 gm/dL (14.0-18.0); MCH 29.1 pg (26.0-34.0); MCHC 31.5 g/dL (28.0-37.0); MCV 92.2 fL (80.0-100.0); MPV 6.7 fl. (7.2-11.1); NUCLEATED RBCS 0 /100WBC; PLATELET COUNT* 180 thou/uL (150-400); RBC 2.96 mil/uL (4.50-6.00); RDW-CV 17.5 % (10.5-14.5); WBC 8.6 thou/uL (4.0-11.0)
[2020-08-16 05:15] LABS: ALBUMIN 1.4 g/dL (3.4-5.0); CALCIUM 8.4 mg/dL (8.5-10.1); POTASSIUM 4.3 mmol/L (3.5-5.1); TOTAL BILIRUBIN 0.4 mg/dL (<0.1-1.0); TOTAL PROTEIN 5.1 g/dL (6.4-8.2)
[2020-08-16 05:18] LABS: CREATININE 4.3 mg/dL (0.6-1.3)
[2020-08-16 06:04] LABS: ABSOLUTE LYMPHOCYTES 0.9 thou/uL (0.8-5.3); ABSOLUTE MONOCYTES 0.2 thou/uL (0.0-1.2); ABSOLUTE NEUTROPHILS 7.6 thou/uL (1.6-8.1); ANISOCYTOSIS 1+; HYPOCHROMASIA 1+; PLATELET ESTIMATE ADEQUATE; POIKILOCYTOSIS 1+
[2020-08-16 07:40] VITALS: BP 90/33
[2020-08-16 12:00] VITALS: BP 100/48
[2020-08-16 16:00] VITALS: BP 94/38
[2020-08-16 20:00] VITALS: BP 108/52
[2020-08-17 00:47] VITALS: BP 97/55
[2020-08-17 04:30] VITALS: BP 94/49
[2020-08-17 05:11] LABS: HEMOGLOBIN 9.2 gm/dL (14.0-18.0); POLYS 87.9 %
[2020-08-17 05:13] LABS: ABSOLUTE LYMPHOCYTES 0.8 thou/uL (0.8-5.3); ABSOLUTE MONOCYTES 0.5 thou/uL (0.0-1.2); ABSOLUTE NEUTROPHILS 9.2 thou/uL (1.6-8.1); BASOPHILS 0.2 %; EOSINOPHILS 0.1 %; HEMATOCRIT 28.7 % (42.0-52.0); LYMPHOCYTES 7.2 %; MCH 29.8 pg (26.0-34.0); MONOCYTES 4.6 %; MPV 6.9 fl. (7.2-11.1); NUCLEATED RBCS 0 /100WBC; PLATELET COUNT* 162 thou/uL (150-400); RBC 3.08 mil/uL (4.50-6.00); RDW-CV 17.5 % (10.5-14.5); WBC 10.5 thou/uL (4.0-11.0)
[2020-08-17 05:32] LABS: CALCIUM 8.4 mg/dL (8.5-10.1)
[2020-08-17 05:34] LABS: CREATININE 3.1 mg/dL (0.6-1.3)
[2020-08-17 08:00] VITALS: BP 90/50
[2020-08-17 11:55] VITALS: BP 89/41
[2020-08-17 17:02] VITALS: BP 82/44
[2020-08-18] VITALS (7 sets, daily range): BP systolic 77–136; BP diastolic 37–121
[2020-08-18 05:41] LABS: ABSOLUTE BASOPHILS 0.1 thou/uL (0.0-0.2); ABSOLUTE LYMPHOCYTES 0.7 thou/uL (0.8-5.3); ABSOLUTE MONOCYTES 0.4 thou/uL (0.0-1.2); ABSOLUTE NEUTROPHILS 10.5 thou/uL (1.6-8.1); BASOPHILS 0.4 %; EOSINOPHILS 0.3 %; HEMATOCRIT 27.6 % (42.0-52.0); HEMOGLOBIN 8.7 gm/dL (14.0-18.0); LYMPHOCYTES 5.8 %; MCHC 31.6 g/dL (28.0-37.0); MCV 91.9 fL (80.0-100.0); MONOCYTES 3.8 %; MPV 6.8 fl. (7.2-11.1); NUCLEATED RBCS 0 /100WBC; PLATELET COUNT* 178 thou/uL (150-400); POLYS 89.7 %; RDW-CV 17.3 % (10.5-14.5); WBC 11.7 thou/uL (4.0-11.0)
[2020-08-18 05:52] LABS: CALCIUM 8.4 mg/dL (8.5-10.1); CREATININE 4.2 mg/dL (0.6-1.3); POTASSIUM 4.4 mmol/L (3.5-5.1)
[2020-08-19 03:36] LABS: ABSOLUTE BASOPHILS 0.1 thou/uL (0.0-0.2); ABSOLUTE LYMPHOCYTES 0.8 thou/uL (0.8-5.3); ABSOLUTE MONOCYTES 0.4 thou/uL (0.0-1.2); ABSOLUTE NEUTROPHILS 10.1 thou/uL (1.6-8.1); BASOPHILS 0.5 %; EOSINOPHILS 0.3 %; HEMATOCRIT 28.2 % (42.0-52.0); HEMOGLOBIN 8.7 gm/dL (14.0-18.0); LYMPHOCYTES 6.8 %; MCH 28.5 pg (26.0-34.0); MONOCYTES 3.8 %; MPV 6.8 fl. (7.2-11.1); NUCLEATED RBCS 0 /100WBC; PLATELET COUNT* 197 thou/uL (150-400); POLYS 88.6 %; RBC 3.06 mil/uL (4.50-6.00); RDW-CV 17.8 % (10.5-14.5); WBC 11.4 thou/uL (4.0-11.0)
[2020-08-19 03:55] LABS: CALCIUM 8.7 mg/dL (8.5-10.1); POTASSIUM 5.3 mmol/L (3.5-5.1)
[2020-08-19 03:56] LABS: CREATININE 5.2 mg/dL (0.6-1.3)
[2020-08-19 04:00] VITALS: BP 100/48
[2020-08-19 08:00] VITALS: BP 62/29
[2020-08-19 12:39] VITALS: BP 81/49
[2020-08-19 16:15] VITALS: BP 170/79
[2020-08-19 20:05] VITALS: BP 84/54
== END 2020-08-19 22:14 | DRG 853 ==
LOC: M.ICU 12:46 → M.TBA-ER 12:46 → M.ICU 15:30 → M.2W 08-15 04:03
PROVIDERS: Internal Medicine; Nurse Practitioner Family; ADMIT Internal Medicine; ATTEND Internal Medicine
DX: A41.9 Sepsis, unspecified organism (principal); J15.6 Pneumonia due to other Gram-negative bacteria; N18.6 End stage renal disease; L89.154 Pressure ulcer of sacral region, stage 4; E43 Unspecified severe protein-calorie malnutrition; E87.1 Hypo-osmolality and hyponatremia; I13.2 Hypertensive heart and chronic kidney disease with heart failure and with stage 5 chronic kidney disease, or end stage renal disease; I50.32 Chronic diastolic (congestive) heart failure; G82.20 Paraplegia, unspecified; I95.9 Hypotension, unspecified; D63.1 Anemia in chronic kidney disease; E66.9 Obesity, unspecified; E11.40 Type 2 diabetes mellitus with diabetic neuropathy, unspecified; I25.10 Atherosclerotic heart disease of native coronary artery without angina pectoris; E11.22 Type 2 diabetes mellitus with diabetic chronic kidney disease; R62.7 Adult failure to thrive; I48.91 Unspecified atrial fibrillation; E11.51 Type 2 diabetes mellitus with diabetic peripheral angiopathy without gangrene; I27.20 Pulmonary hypertension, unspecified; E87.6 Hypokalemia; Z66 Do not resuscitate; R57.1 Hypovolemic shock; E86.1 Hypovolemia; B96.4 Proteus (mirabilis) (morganii) as the cause of diseases classified elsewhere; B95.2 Enterococcus as the cause of diseases classified elsewhere; E66.01 Morbid (severe) obesity due to excess calories; Z51.5 Encounter for palliative care; Z20.822 Contact with and (suspected) exposure to COVID-19; Z68.37 Body mass index [BMI] 37.0-37.9, adult; Z99.2 Dependence on renal dialysis; Z79.01 Long term (current) use of anticoagulants; Z79.899 Other long term (current) drug therapy; Z88.2 Allergy status to sulfonamides; Z88.1 Allergy status to other antibiotic agents; I69.369 Other paralytic syndrome following cerebral infarction affecting unspecified side